=== PATIENT | male | born 1960 | race Caucasian/White ===

== ENCOUNTER 2017-03-13 13:28 | Inpatient (IN) | payer OTHER ==
[~2017-03-13] VITALS: Ht 185.4 cm; Wt 99.2 kg
[2017-03-13] MEDS: NICOTINE 21MG/24HR 1 EA TRANSDERMAL TD SCH (09:00)
[~2017-03-13 13:28] MED LIST: /PRAV20TA OR; BABY81CH OR; NIAS10003 OR; PLAV75TA2 OR
[2017-03-13 14:38] LABS: MEAN CORPUSCULAR HEMOGLOBIN 30.6 pg (27.0-33.0); MEAN CORPUSCULAR HGB CONC 33.2 g/dl (32.0-36.5); MEAN CORPUSCULAR VOLUME 92.2 fl (80.0-96.0); RED CELL DISTRIBUTION WIDTH 12.6 % (11.5-14.5); WHITE BLOOD COUNT 10.5 K/mm3 (4.0-10.0)
[2017-03-13] MEDS ORDERED: VENL75CA47 (14:54)
[2017-03-13] MEDS ORDERED: PRAV80TA2 PO (14:54)
[2017-03-13] MEDS ORDERED: EZET10TA PO (14:54)
[2017-03-13] MEDS ORDERED: LISI10TA4 PO (14:54)
[2017-03-13] MEDS ORDERED: METF500T PO (14:54)
[2017-03-13] MEDS ORDERED: VITA50003 (14:54)
[2017-03-13 15:06] LABS: ALBUMIN 3.9 GM/DL (3.2-5.2); ALBUMIN/GLOBULIN RATIO 1.05 (1.00-1.93); ALKALINE PHOSPHATASE 67 U/L (45-117); ALT/SGPT 22 U/L (12-78); ANION GAP 4 MEQ/L (8-16); AST/SGOT 16 U/L (15-37); BILIRUBIN,DIRECT 0.1 MG/DL (0.0-0.2); BILIRUBIN,TOTAL 0.4 MG/DL (0.2-1.0); BLOOD UREA NITROGEN 23 MG/DL (7-18); CALCIUM LEVEL 9.6 MG/DL (8.5-10.1); CARBON DIOXIDE LEVEL 30 MEQ/L (21-32); CHLORIDE LEVEL 107 MEQ/L (98-107); CREATININE FOR GFR 1.24 MG/DL (0.70-1.30); GLOMERULAR FILTRATION RATE > 60.0 (>56); GLUCOSE, FASTING 91 MG/DL (70-105); POTASSIUM SERUM 4.1 MEQ/L (3.5-5.1); SODIUM LEVEL 141 MEQ/L (136-145); TOTAL PROTEIN 7.6 GM/DL (6.4-8.2)
[2017-03-13 17:11] LABS: METHADONE URINE NEGATIVE (NEGATIVE)
[2017-03-13] MEDS: EZETIMIBE 10 MG TAB (ZETIA) PO SCH (18:00)
[2017-03-13] MEDS ORDERED: VENL37TA PO (18:56)
[2017-03-13] MEDS ORDERED: RIZA10TA2 PO (20:40)
[2017-03-13] MEDS ORDERED: ASPI81TA7 PO (21:43)
[2017-03-13] MEDS ORDERED: VENL75CA PO (21:43)
[2017-03-13 21:54] VITALS: BP 136/99
[2017-03-13] MEDS ORDERED: MOM 30ML SUSPENSION UDC PO PRN (23:15)
[2017-03-13] MEDS ORDERED: MAALOX 30 ML SUSP *UDC PO PRN (23:15)
[2017-03-13] MEDS ORDERED: ACETAMINOPHEN TAB 650MG DOSE (2X325MG) PO PRN (23:15)
[2017-03-13] MEDS: ASPIRIN 81 MG ENTERIC TAB PO SCH (23:22)
[2017-03-13] MEDS: LISINOPRIL 10 MG TAB PO SCH (23:22)
[2017-03-13] MEDS: metFORMIN (GLUCOPHAGE) 500 MG TAB PO SCH (23:22)
[2017-03-13] MEDS: VENLAFAXINE **XR** 75MG CAPSULE PO SCH (23:22)
[2017-03-13] MEDS: traZODone 50 MG TAB PO PRN (23:23)
[2017-03-14 06:29] VITALS: BP 131/74
[2017-03-14] MEDS: NICOTINE 21MG/24HR 1 EA TRANSDERMAL TD SCH (08:25)
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
[2017-03-14 12:00] VITALS: BP 133/58
--- NOTE | 2017-03-14 12:29 | HPEPDOC ---
Medical History and Physical Date of Admission Mar 13, 2017 at 20:43 History and Physical PCP: Dr Herrera Chief Operator Hydroformer. Dr Mckeon. ATTENDING: Dr. Leonidas Quach HPI: 56 yo M admitted to [facility] for adjustment disorder, being medically examined today. No acute medical complaints today. Denies any fevers, chills, weakness, fatigue, LYNCH, CP, SOB, cough, palpitations, abdominal pain, N/V/D or changes in bowel or bladder habits. 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 He states he hadn't used in one year. Prior to that had used cocaine 3 years. Marijuana every 2 weeks. Xanax from a friend. IV Drug Use: Denies Tattoos done unprofessionally: Denies FAMHX: Mother: History of CVA Father: , suicide Siblings: One sister Alive, diabetes Children: Alive, well Unexpected deaths due to medical reasons: 1 Brother suicide, 1 brother MT. ROS: As noted in HPI, otherwise 11pt ROS of systems reviewed and unremarkable. PE: GEN: 56 yo M, appears stated age. Well-nourished, well developed. No acute distress. Alert and oriented x 3. Pleasant, interactive. HEENT: Normocephalic, atraumatic. Pupils are equal, round, and reactive to light. Extraocular movements are intact. No nystagmus appreciated. Sclera are nonicteric. Conjunctiva without injection. Nose midline. Nasal turbinates without bogginess. EACs both patent BL. TMs both visualized and chong with good cone of light, no bulging or erythema. No facial asymmetry. Moist mucous membranes. Dentition fair. Pharynx pink and moist, no cobblestoning. Neck supple , trachea midline. No lymphadenopathy or thyromegaly appreciated. CHEST: Regular rate and rhythm, +S1, +S2 LUNGS: Clear to auscultation bilaterally. No wheezes, rales, or rhonchi. Breathing appears symmetric and easy. Patient is speaking in full sentences. No accessory muscle use. ABD: Round, soft, non-tender, non-distended. +Bowel sounds throughout. No rebound or guarding. No costovertebral angle tenderness. EXT: Pulses 2+ bilaterally dorsalis pedis and radial. No lower extremity edema appreciated. SKIN: [place], dry, warm. Capillary refill <2sec. No rashes. NEURO: Alert and oriented x 3. Cranial nerves III-XII are intact. No focal deficits appreciated. EKG: Pending. A&P: 56 yo M admitted to [facility] for adjustment disorder 1. Psych. Plan per Psychiatry. Obtain baseline EKG to assure the safety of psychiatric medications as they can prolong the QT interval. 2. Nicotine dependence. Patch available. 3. CAD/stent x 2. Follows as outpatient with Dr. Mckeon. Patient denies any chest heaviness, tightness, pressure. Continue aspirin 81 mg daily. Lisinopril 10 mg daily. Pravachol 80 mg daily. 4. Follow up with PCP on discharge. 5. Substance use. Per psychiatry. 6. Dyslipidemia. Continue Pravachol 80 mg daily and Zetia 10 mg daily. 7. NIDDM. Consistent carbohydrate diet. Continue metformin 500 mg daily. Fingerstick blood sugar twice a day. 8. History of Vitamin D deficiency. Update vitamin D level 9. History of migraine headache. Continue Tylenol as needed. 10. Staff never present throughout exam, senior safety support manager Ed. Vital Signs Vital Signs Date Time Temp Pulse Resp B/P (MAP) Pulse Ox O2 Delivery O2 Flow Rate FiO2 03/14/17 06:29 99.7 56 18 131/74 (93) 03/13/17 21:54 Room Air 03/13/17 21:36 95 Laboratory Data Labs 24H Laboratory Tests 2 03/13/17 14:11: Anion Gap 4L, Glomerular Filtration Rate > 60.0, Calcium Level 9.6, Aspartate Amino Transf (AST/SGOT) 16, Alanine Aminotransferase (ALT/SGPT) 22, Alkaline Phosphatase 67, Total Bilirubin 0.4, Direct Bilirubin 0.1, Total Protein 7.6, Albumin 3.9, Albumin/Globulin Ratio 1.05, Thyroid Stimulating Hormone (TSH) 2.380, Salicylates Level 3.1L, Urine Amphetamines Screen NEGATIVE, Urine Benzodiazepines Screen POSITIVEH, Urine Opiates Screen NEGATIVE, Urine Methadone Screen NEGATIVE, Acetaminophen Level < 2.0L, Urine Barbiturates Screen NEGATIVE, Urine Phencyclidine Screen NEGATIVE, Urine Cocaine Metabolite Screen POSITIVEH, Urine Cannabinoids Screen POSITIVEH, Ethyl Alcohol Level < 0.003 CBC/BMP Laboratory Tests 03/13/17 14:11 Red Blood Count 5.03, Mean Corpuscular Volume 92.2, Mean Corpuscular Hemoglobin 30.6, Mean Corpuscular Hemoglobin Concent 33.2, Red Cell Distribution Width 12.6 Home Medications Scheduled Aspirin (Aspirin) 81 Mg Tab, 81 MG PO QPM Ezetimibe (Ezetimibe) 10 Mg Tab, 10 MG PO QPM Lisinopril (Lisinopril) 10 Mg Tab, 10 MG PO QPM Metformin Hydrochloride (Metformin HCl) 500 Mg Tab, 500 MG PO QPM Pravastatin Sodium (Pravastatin Sodium) 80 Mg Tab, 80 MG PO QPM Venlafaxine HCl (Venlafaxine HCl ER) 75 Mg Cap, 75 MG PO QPM Allergies Coded Allergies: No Known Drug Allergy (Verified Allergy, Unknown, 02/22/13) Lina Guerrero Mar 14, 2017 12:29
[2017-03-14] MEDS: LISINOPRIL 10 MG TAB PO SCH (17:08)
[2017-03-14] MEDS: EZETIMIBE 10 MG TAB (ZETIA) PO SCH (17:08)
[2017-03-14] MEDS: ASPIRIN 81 MG ENTERIC TAB PO SCH (17:08)
[2017-03-14] MEDS: VENLAFAXINE **XR** 75MG CAPSULE PO SCH (17:08)
[2017-03-14] MEDS: metFORMIN (GLUCOPHAGE) 500 MG TAB PO SCH (17:08)
[2017-03-14 18:00] VITALS: BP 132/74
[2017-03-14] MEDS: PRAVASTATIN 20 MG TAB PO SCH (20:48)
[2017-03-15 06:24] VITALS: BP 145/80
[2017-03-15 06:33] LABS: MEAN CORPUSCULAR HEMOGLOBIN 29.7 pg (27.0-33.0); MEAN CORPUSCULAR HGB CONC 33.1 g/dl (32.0-36.5); MEAN CORPUSCULAR VOLUME 89.8 fl (80.0-96.0); RED CELL DISTRIBUTION WIDTH 12.6 % (11.5-14.5); WHITE BLOOD COUNT 6.4 K/mm3 (4.0-10.0)
[2017-03-15 06:52] LABS: ANION GAP 5 MEQ/L (8-16); BLOOD UREA NITROGEN 20 MG/DL (7-18); CALCIUM LEVEL 9.1 MG/DL (8.5-10.1); CARBON DIOXIDE LEVEL 28 MEQ/L (21-32); CHLORIDE LEVEL 108 MEQ/L (98-107); CREATININE FOR GFR 0.98 MG/DL (0.70-1.30); GLOMERULAR FILTRATION RATE > 60.0 (>56); GLUCOSE, FASTING 117 MG/DL (70-105); POTASSIUM SERUM 4.2 MEQ/L (3.5-5.1); SODIUM LEVEL 141 MEQ/L (136-145)
[2017-03-15] MEDS: NICOTINE 21MG/24HR 1 EA TRANSDERMAL TD SCH (10:24)
--- NOTE | 2017-03-15 10:36 | IPN ---
DATE OF VISIT: 03/15/2017 Mr. Xavier met with me and staff. He is focused on being discharged. He states he was willing to do outpatient drug treatment at [facility]. He continues to minimize the seriousness of what he has done and is concerned about his finances. His use of three" eight balls" of cocaine is quite an extensive amount and he followed that up with numerous Xanax. His speech is normal. Thought process intact. He has no loose associations. No abnormal or psychotic thoughts. Judgment poor, insight poor. He is fully oriented. Recent and remote memory intact. Full attention and concentration. No disturbance of language. Full fund of knowledge. Mood is good, affect is bright. DIAGNOSES: 1. Cocaine dependence. 2. Encephalopathy secondary to cocaine use. 3. Depression.
--- NOTE | 2017-03-15 16:02 | ECGEPIP ---
Stationary ECG Study [facility] Test Date: 2017-03-14 Pat Name: GILDA HAGAN Department: Room: [place] [address] Gender: M Ticket Puller: JESSICA : 1960 Requested By: Lina Guerrero Order Number: [id number] Reading MD: Asaf Ferris Measurements Intervals [place] Rate: 55 P: 60 GA: 180 QRS: 31 QRSD: 94 T: 52 QT: 417 QTc: 402 Interpretive Statements Sinus bradycardia Incomplete right bundle branch block No significant change when compared to prior tracing of 09/23/2013 Electronically Signed On 03-15-2017 16:02:12 EDT by Asaf Ferris
[2017-03-15] MEDS: LISINOPRIL 10 MG TAB PO SCH (17:14)
[2017-03-15] MEDS: EZETIMIBE 10 MG TAB (ZETIA) PO SCH (17:14)
[2017-03-15] MEDS: metFORMIN (GLUCOPHAGE) 500 MG TAB PO SCH (17:15)
[2017-03-15] MEDS: VENLAFAXINE **XR** 75MG CAPSULE PO SCH (17:15)
[2017-03-15] MEDS: ASPIRIN 81 MG ENTERIC TAB PO SCH (17:15)
[2017-03-15 18:00] VITALS: BP 135/75
[2017-03-15] MEDS: PRAVASTATIN 20 MG TAB PO SCH (22:29)
[2017-03-16 06:48] VITALS: BP 129/76
--- NOTE | 2017-03-16 07:06 | IPN ---
DATE: 03/16/2017 Mr. Xavier met with me today. He is focused on discharge and getting into rehabilitation. He states he should have been in rehabilitation after he stopped cocaine a year ago. He is not minimizing the seriousness of what he does. He is concerned about his finances. He is meeting with staff to arrange drug rehabilitation treatment. MENTAL STATUS EXAMINATION: His speech is normal. Thought process intact. He has no loose associations. No abnormal or psychotic thoughts. Judgment is poor. Insight is poor. He is fully oriented. Recent and remote memory intact. Full attention and concentration. No disturbance of language. Full fund of knowledge. Mood is good. Affect is bright. DIAGNOSES: 1. Encephalopathy secondary to cocaine use. 2. Depression. 3. Cocaine dependence.
[2017-03-16] MEDS: NICOTINE 21MG/24HR 1 EA TRANSDERMAL TD SCH (08:50)
[2017-03-16] MEDS: ASPIRIN 81 MG ENTERIC TAB PO SCH (17:22)
[2017-03-16] MEDS: LISINOPRIL 10 MG TAB PO SCH (17:22)
[2017-03-16] MEDS: metFORMIN (GLUCOPHAGE) 500 MG TAB PO SCH (17:22)
[2017-03-16] MEDS: VENLAFAXINE **XR** 75MG CAPSULE PO SCH (17:22)
[2017-03-16] MEDS: EZETIMIBE 10 MG TAB (ZETIA) PO SCH (17:23)
[2017-03-16 18:00] VITALS: BP 132/72
[2017-03-16] MEDS: PRAVASTATIN 20 MG TAB PO SCH (20:39)
[2017-03-16] MEDS: traZODone 50 MG TAB PO PRN (20:39)
[2017-03-17 06:50] VITALS: BP 117/63
[2017-03-17] MEDS: NICOTINE 21MG/24HR 1 EA TRANSDERMAL TD SCH (09:01)
[2017-03-17] MEDS: VENLAFAXINE **XR** 75MG CAPSULE PO SCH (17:15)
[2017-03-17] MEDS: EZETIMIBE 10 MG TAB (ZETIA) PO SCH (17:15)
[2017-03-17] MEDS: ASPIRIN 81 MG ENTERIC TAB PO SCH (17:15)
[2017-03-17] MEDS: LISINOPRIL 10 MG TAB PO SCH (17:16)
[2017-03-17] MEDS: metFORMIN (GLUCOPHAGE) 500 MG TAB PO SCH (17:16)
[2017-03-17 18:00] VITALS: BP 117/69
[2017-03-17] MEDS: PRAVASTATIN 20 MG TAB PO SCH (22:00)
[2017-03-17] MEDS: traZODone 50 MG TAB PO PRN (22:00)
[2017-03-18 06:59] VITALS: BP 133/73
[2017-03-18] MEDS: NICOTINE 21MG/24HR 1 EA TRANSDERMAL TD SCH (08:51)
--- NOTE | 2017-03-18 09:36 | IPN ---
DATE: 03/17/2017 Felipe Xavier is in good spirits. He denies hallucinations, delusions, obsessions, compulsions and phobias. His speech is normal. His thought process is intact. No loose associations. No abnormal or psychotic thoughts. Judgment and insight are good. He is fully oriented. Recent and remote memory intact. Attention and concentration are full. No disturbance of language. He has a full fund of knowledge. Mood is good. Affect is bright. Plan for patient to be going to substance abuse rehabilitation as planned. DIAGNOSIS: Substance dependence.
[2017-03-18] MEDS: VENLAFAXINE **XR** 75MG CAPSULE PO SCH (17:19)
[2017-03-18] MEDS: ASPIRIN 81 MG ENTERIC TAB PO SCH (17:19)
[2017-03-18 17:20] VITALS: BP 133/73
[2017-03-18] MEDS: EZETIMIBE 10 MG TAB (ZETIA) PO SCH (17:20)
[2017-03-18] MEDS: LISINOPRIL 10 MG TAB PO SCH (17:20)
[2017-03-18] MEDS: metFORMIN (GLUCOPHAGE) 500 MG TAB PO SCH (17:20)
[2017-03-18 18:00] VITALS: BP 125/71
[2017-03-18] MEDS: PRAVASTATIN 20 MG TAB PO SCH (21:20)
[2017-03-18] MEDS: traZODone 50 MG TAB PO PRN (22:28)
[2017-03-19 06:30] VITALS: BP 144/87
[2017-03-19] MEDS: NICOTINE 21MG/24HR 1 EA TRANSDERMAL TD SCH (08:10)
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
== END 2017-03-19 14:05 | disposition home or self-care (01) | DRG 774 ==
LOC: M ED 15:04 → M ED INP 20:43 → M PSY 21:42
PROVIDERS: ADMIT Psychiatry & Neurology Psychiatry; ATTEND Psychiatry & Neurology Child & Adolescent Psychiatry
DX: F19.94 Other psychoactive substance use, unspecified with psychoactive substance-induced mood disorder (principal); F14.10 Cocaine abuse, uncomplicated; I10 Essential (primary) hypertension; F32.9 Major depressive disorder, single episode, unspecified; I25.10 Atherosclerotic heart disease of native coronary artery without angina pectoris; E11.9 Type 2 diabetes mellitus without complications; E78.5 Hyperlipidemia, unspecified; F41.9 Anxiety disorder, unspecified; F17.200 Nicotine dependence, unspecified, uncomplicated

== ENCOUNTER → 2017-05-14 | Outpatient (CLI) | payer OTHER ==
[~2017-05-14] MED LIST changes: +ASPI81TA7 PO; +EZET10TA PO; +LISI10TA4 PO; +METF500T PO; +PRAV80TA2 PO; +RIZA10TA2 PO; +VENL37TA PO; +VENL75CA PO; +VENL75CA47; +VITA50003
[2017-05-14 11:49] LABS: MEAN CORPUSCULAR HEMOGLOBIN 31.2 pg (27.0-33.0); MEAN CORPUSCULAR HGB CONC 33.4 g/dl (32.0-36.5); MEAN CORPUSCULAR VOLUME 93.6 fl (80.0-96.0); RED CELL DISTRIBUTION WIDTH 12.7 % (11.5-14.5); WHITE BLOOD COUNT 6.5 K/mm3 (4.0-10.0)
[2017-05-14 12:44] LABS: ALBUMIN 3.5 GM/DL (3.2-5.2); ALBUMIN/GLOBULIN RATIO 1.06 (1.00-1.93); ALKALINE PHOSPHATASE 61 U/L (45-117); ALT/SGPT 21 U/L (12-78); ANION GAP 4 MEQ/L (8-16); AST/SGOT 14 U/L (15-37); BILIRUBIN,TOTAL 0.2 MG/DL (0.2-1.0); BLOOD UREA NITROGEN 24 MG/DL (7-18); CALCIUM LEVEL 8.6 MG/DL (8.5-10.1); CARBON DIOXIDE LEVEL 28 MEQ/L (21-32); CHLORIDE LEVEL 110 MEQ/L (98-107); CHOLESTEROL LEVEL 142 MG/DL (<200); CREATININE FOR GFR 1.11 MG/DL (0.70-1.30); GLOMERULAR FILTRATION RATE > 60.0 (>56); GLUCOSE, FASTING 119 MG/DL (70-105); POTASSIUM SERUM 4.5 MEQ/L (3.5-5.1); SODIUM LEVEL 142 MEQ/L (136-145); THYROXINE (T4) 7.8 UG/DL (4.5-12.0); TOTAL PROTEIN 6.8 GM/DL (6.4-8.2); TRIGLYCERIDES LEVEL 48 MG/DL (<150)
== END ==
LOC: M LRY 08:46
PROVIDERS: ATTEND Family Medicine
DX: E11.9 Type 2 diabetes mellitus without complications (principal); E78.5 Hyperlipidemia, unspecified; R49.0 Dysphonia

== ENCOUNTER 2020-03-04 07:17 | Day surgery (SDC) | payer OTHER ==
[~2020-03-04] VITALS: Ht 185.4 cm; Wt 95.0 kg
[2020-03-04] VITALS (8 sets, daily range): BP systolic 134–167; BP diastolic 75–89
[~2020-03-04 07:17] MED LIST changes: -/PRAV20TA OR; +ASPI1TAB15 PO; -ASPI81TA7 PO; -EZET10TA PO; +EZET10TA21 PO; -METF500T PO; +METF500T13 PO; +PRAV1TAB39 OR; -VENL75CA PO; +VENL75CA2 PO; -VITA50003; +VITA50005
[2020-03-04] MEDS ORDERED: ISOVUE-370 76% 100ML VIAL (Q9967) As Ordered ONE (07:26)
[2020-03-04] MEDS ORDERED: BOOSTRIX/ADACEL VACCINE (DIPHTH/PERTUSS/ACELL/TETANUS) 0.5ML SYR IM ONE (07:30)
[2020-03-04] MEDS ORDERED: NS 1,000 ML IV ONE (07:30)
[2020-03-04] MEDS ORDERED: LIDOCAINE 2% 5ML JELLY UROJET TOP ONE (07:30)
[2020-03-04 07:36] LABS: BASO # 0.1 10^3/uL (0.0-0.2); BASO % 0.5 % (0.0-1.0); EOS % 0.1 % (0.0-3.0); HEMATOCRIT 40.6 % (42.0-52.0); HEMOGLOBIN 13.2 g/dl (13.5-17.5); LYMPH # 1.3 10^3/uL (1.5-5.0); LYMPH % 12.3 % (24.0-44.0); MEAN CORPUSCULAR HEMOGLOBIN 29.2 pg (27.0-33.0); MEAN CORPUSCULAR HGB CONC 32.5 g/dl (32.0-36.5); MEAN CORPUSCULAR VOLUME 89.8 fl (80.0-96.0); MONO # 0.6 10^3/uL (0.0-0.8); NEUTROPHILS # 8.5 10^3/uL (1.5-8.5); NEUTROPHILS % 80.8 % (36.0-66.0); PLATELET COUNT, AUTOMATED 288 10^3/uL (150-450); RED BLOOD COUNT 4.52 10^6/uL (4.30-6.10); WHITE BLOOD COUNT 10.5 10^3/uL (4.0-10.0)
[2020-03-04 07:46] LABS: INR 1.08; PROTHROMBIN TIME 13.7 SECONDS (11.8-14.0)
[2020-03-04 07:47] LABS: PARTIAL THROMBOPLASTIN TIME 34.4 SECONDS (25.0-38.4)
[2020-03-04 07:54] LABS: ABG BASE EXCESS 0.6 (-2.0-2.0); ABG HCO3 24.8 MEQ/L (22.0-26.0); ABG O2 SATURATION 96.8 % (95.0-99.0); ABG PARTIAL PRESSURE CO2 38.4 mmHg (35.0-45.0); ABG PARTIAL PRESSURE O2 84.2 mmHg (75.0-100.0); ABG pH (ARTERIAL) 7.428 UNITS (7.350-7.450)
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
[2020-03-04] MEDS ORDERED: METF-877 PO (08:10)
[2020-03-04] MEDS ORDERED: ATOR80TA59 PO (08:10)
[2020-03-04] MEDS ORDERED: VITA50005 PO (08:10)
[2020-03-04] MEDS ORDERED: TRUL10IN SQ (08:10)
[2020-03-04 08:14] LABS: ALT/SGPT 20 U/L (12-78)
[2020-03-04 08:15] LABS: ALBUMIN 3.7 GM/DL (3.2-5.2); AMYLASE 33 U/L (25-115); BILIRUBIN,DIRECT 0.2 MG/DL (0.0-0.2); BILIRUBIN,TOTAL 0.5 MG/DL (0.2-1.0); CK-MB VALUE MASS 2.9 NG/ML (<3.6); CPK CREATINE PHOSPHOKINASE 281 U/L (39-308); ETHYL ALCOHOL (ETHANOL) < 0.003 % (0.000-0.010); LIPASE 124 U/L (73-393); MB/CK RELATIVE INDEX 1.03 (< OR =4); TOTAL PROTEIN 7.7 GM/DL (6.4-8.2); TROPONIN I < 0.02 NG/ML (< 0.10)
[2020-03-04] MEDS ORDERED: NS 1,000 ML IV SCH ×2 (08:23→10:15)
[2020-03-04] MEDS ORDERED: BUPIVACAINE HCL 0.25% 30ML VIAL As Ordered ONE (08:25)
[2020-03-04] MEDS ORDERED: cefoTEtan INJ 2GM VIAL (S0074 PER 500MG) As Ordered ONE (08:59)
[2020-03-04] MEDS ORDERED: MIDAZOLAM INJ 2MG/2ML VIAL (J2250 PER 1MG) As Ordered ONE (09:09)
[2020-03-04] MEDS ORDERED: fentaNYL 250 MCG/5 ML INJECTION (J3010) As Ordered ONE (09:09)
[2020-03-04] MEDS ORDERED: ROCURONIUM BROMIDE 50 MG/5 ML VIAL As Ordered ONE (09:09)
[2020-03-04] MEDS ORDERED: dexameTHASONE 4 MG/ML 1ML VIAL (J1100 PER 1MG) As Ordered ONE (09:09)
[2020-03-04] MEDS ORDERED: ONDANSETRON 4MG/2ML VIAL (J2405 PER 1MG) As Ordered ONE (09:09)
[2020-03-04] MEDS ORDERED: propofoL 200 MG/20 ML VIAL As Ordered ONE (09:09)
[2020-03-04] MEDS ORDERED: LIDOCAINE 2% 100MG/5ML SDV (FOR ANES.) As Ordered ONE (09:09)
[2020-03-04] MEDS ORDERED: ALBUTEROL 6.7GM INHALER **FOR ANES. CART/OMNICELL ONLY As Ordered ONE (09:10)
[2020-03-04] MEDS ORDERED: SUGAMMADEX SODIUM 500 MG/5 ML VIAL (BRIDION) As Ordered ONE (09:24)
[2020-03-04] MEDS ORDERED: hydrALAZINE 20MG/ML 1ML VIAL (J0360 PER 20MG) As Ordered ONE (09:29)
[2020-03-04] MEDS ORDERED: fentaNYL 100 MCG/2 ML INJECTION (J3010) IV PRN (10:15)
[2020-03-04] MEDS ORDERED: oxyCODONE 5MG TAB PO PRN (10:15)
[2020-03-04] MEDS ORDERED: LR 1,000 ML IV SCH (10:15)
[2020-03-04] MEDS ORDERED: ACETAMINOPHEN TAB 650MG DOSE (2X325MG) PO PRN (10:15)
[2020-03-04] MEDS ORDERED: NORCO, ANEXSIA 5/325MG TABLET (HYDROcodone/ACETAMINOPHEN) PO PRN (10:15)
[2020-03-04] MEDS ORDERED: ONDANSETRON 4MG/2ML VIAL (J2405 PER 1MG) IV PRN (10:15)
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
--- NOTE | 2020-03-04 20:39 | ECGEPIP ---
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
[2020-03-04] MEDS ORDERED: VENLAFAXINE **XR** 75MG CAPSULE PO SCH (21:00)
[2020-03-04] MEDS ORDERED: cefoTEtan DISODIUM 1 GM in D5W MINI-BAG PLUS 50 ML IV ONE (21:00)
[2020-03-04] MEDS ORDERED: ATORVASTATIN 20 MG TAB PO SCH (21:00)
[2020-03-04] MEDS ORDERED: lisinopriL 10 MG TAB PO SCH (21:00)
[2020-03-05 02:09] VITALS: BP 126/78
[2020-03-05 06:00] VITALS: BP 165/75
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
== END 2020-03-05 14:15 | disposition other institution (70) ==
LOC: M ED 07:17 → M SDC 08:33 → M MS5PR 11:15 → M SDC 03-05 14:15
PROVIDERS: ATTEND Surgery
DX: S31.642A Puncture wound with foreign body of abdominal wall, epigastric region with penetration into peritoneal cavity, initial encounter (principal); S36.112A Contusion of liver, initial encounter; T14.91XA Suicide attempt, initial encounter; W29.4XXA Contact with nail gun, initial encounter; Y92.89 Other specified places as the place of occurrence of the external cause; Y93.9 Activity, unspecified; Y99.9 Unspecified external cause status; F14.10 Cocaine abuse, uncomplicated; F17.218 Nicotine dependence, cigarettes, with other nicotine-induced disorders; E78.5 Hyperlipidemia, unspecified; E11.9 Type 2 diabetes mellitus without complications; Z79.82 Long term (current) use of aspirin; Z79.84 Long term (current) use of oral hypoglycemic drugs; Z79.899 Other long term (current) drug therapy; Z18.11 Retained magnetic metal fragments
CPT/HCPCS: 36600; 49329; 51702; 80047; 80076; 82150; 82550; 82553; 82803; 83605; 83690; 84484; 85025; 85610; 85730; 86850; 86900; 86901; 88300; 90471; 90715; 93005; 93041; 96365; 99285; G0480; J0360; J1100; J2250; J2405; J3010; Q9967

== ENCOUNTER 2020-03-05 10:56 | Inpatient (IN) | payer MEDICAID, OTHER ==
[~2020-03-05] VITALS: Ht 185.4 cm; Wt 95.3 kg
[~2020-03-05 10:56] MED LIST changes: +ATOR80TA59 PO; +METF-877 PO; +TRUL10IN SQ; +VITA50005 PO
[2020-03-05] MEDS ORDERED: MAALOX 30 ML SUSP *UDC PO PRN (13:30)
[2020-03-05] MEDS ORDERED: MOM 30ML SUSPENSION UDC PO PRN (13:30)
[2020-03-05] MEDS ORDERED: ACETAMINOPHEN TAB 650MG DOSE (2X325MG) PO PRN (13:30)
[2020-03-05 15:37] VITALS: BP 116/60
[2020-03-05] MEDS: VENLAFAXINE 37.5 MG TAB PO SCH (20:33)
[2020-03-06 06:23] VITALS: BP 144/88
--- NOTE | 2020-03-06 14:21 | HPEPDOC ---
General Date of Admission Mar 05, 2020 at 14:20 Date of Service: Mar 06, 2020 Chief Complaint The patient is a 59-year-old male admitted with a reason for visit of Unspecified Depression Disorder. Source: Patient Exam Limitations: No limitations Timing/Duration: 24 hours Severity: Mild History of Present Illness Patient's 59 years old male with past medical history of depression, hyperlipidemia, diabetes type 2 presented to the hospital with major depressive episode. Patient denied fever, chills, nausea, vomiting, diarrhea or dysuria. Patient stated that he didn't see primary care physician for long period of time. Home Medications Scheduled Aspirin (Aspirin EC) 81 Mg Tab, 81 MG PO QPM, (Reported) Atorvastatin Calcium (Atorvastatin Calcium) 80 Mg Tablet, 80 MG PO QPM, (Reported) Dulaglutide (Trulicity) 0.75 Mg/0.5 Ml Pen.injctr, 0.75 ML SQ QWEEK, (Reported) Ergocalciferol (Vitamin D2) (Vitamin D2) 50,000 Units Cap, 50,000 UNITS PO Q2WK, (Reported) Lisinopril (Lisinopril) 10 Mg Tab, 10 MG PO QPM, (Reported) Venlafaxine HCl (Venlafaxine HCl ER) 75 Mg Cap, 75 MG PO QPM, (Reported) Allergies Coded Allergies: No Known Allergies (Unverified , 03/04/20) Past Medical History Medical History Hyperlipidemia, diabetes type 2, depression Family History Mother had diabetes Social History * Smoker: Denies Alcohol: occationally Drugs: cocaine A-FIB/CHADSVASC A-FIB History Current/History of A-Fib/PAF?: No Current PO Anticoag Therapy: No Review of Systems Constitutional: Denies: Chills, Fever Eyes: Denies: Pain, Vision change ENT: Denies: Head Aches Skin: Denies: Rash Pulmonary: Denies: Dyspnea, Cough Cardiovascular: Denies: Chest Pain, Palpitations Gastrointestinal: Denies: Nausea, Vomiting Genitourinary: Denies: Dysuria Hematologic: Denies: Bruising, Bleeding Excessively Endocrine: Denies: Polydipsia Musculoskeletal: Denies: Neck Pain, Back Pain Neurological: Denies: Weakness Psych: Reports: Depression Physical Examination General Exam: Positive: Alert, Cooperative Eye Exam: Positive: PERRLA ENT Exam: Positive: Atraumatic Neck Exam: Positive: Supple; Negative: JVD Chest Exam: Positive: Clear to auscultation Heart Exam: Positive: Rate Normal Telemetry: Positive: No significant arrhythmia Abdomen Exam: Positive: Normal bowel sounds Extremity Exam: Positive: Clubbing, Cyanosis Skin Exam: Positive: Nl turgor and temperature Neuro Exam: Positive: Normal Gait, Strength at 5/5 X4 ext Psych Exam: Positive: Mental status NL Vital Signs Vital Signs Date Time Temp Pulse Resp B/P (MAP) Pulse Ox O2 Delivery O2 Flow Rate FiO2 03/06/20 10:04 Room Air 03/06/20 06:23 98.1 52 16 144/88 (234) 51 Assessment/Plan Patient's 59 years old male with past medical history of depression, hyperlipidemia, diabetes type 2 presented to the hospital with major depressive episode. Patient denied fever, chills, nausea, vomiting, diarrhea or dysuria. Patient stated that he didn't see primary care physician for long period of time. Problems (1) Type 2 diabetes mellitus Problem Text: HbA1c is 6.5 which indicates type 2 diabetes Patient will benefit from diet and physical exercise (2) Depression Status: Chronic Problem Text: Defer to psychiatrist for management of his chronic medications. (3) Hypertension Status: Chronic Problem Text: Continue home medications (4) Hyperlipidemia Status: Chronic Problem Text: Continue atorvastatin Plan / VTE VTE Prophylaxis Ordered?: No VTE Exclusion Mechanical Proph: Low Risk for VTE BIANKA HEART DO Mar 06, 2020 14:21
[2020-03-06] MEDS: ASPIRIN 81 MG CHEW TABLET PO SCH (15:00)
[2020-03-06 16:13] VITALS: BP 146/82
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
[2020-03-06] MEDS: ATORVASTATIN 20 MG TAB PO SCH (20:27)
[2020-03-06] MEDS: lisinopriL 10 MG TAB PO SCH (20:27)
[2020-03-06] MEDS: traZODone 50 MG TAB PO PRN (20:27)
[2020-03-06] MEDS: VENLAFAXINE 37.5 MG TAB PO SCH (20:27)
[2020-03-07 06:45] VITALS: BP 144/71
[2020-03-07] MEDS: ASPIRIN 81 MG CHEW TABLET PO SCH (08:23)
[2020-03-07 16:06] VITALS: BP 127/71
[2020-03-07 20:29] VITALS: BP 127/71
[2020-03-07] MEDS: lisinopriL 10 MG TAB PO SCH (20:29)
[2020-03-07] MEDS: VENLAFAXINE 37.5 MG TAB PO SCH (20:29)
[2020-03-07] MEDS: ATORVASTATIN 20 MG TAB PO SCH (20:29)
[2020-03-07] MEDS: traZODone 50 MG TAB PO PRN (20:29)
--- NOTE | 2020-03-08 06:16 | MHIPN ---
DATE: 03/07/2020 The patient, today, states that he slept good. He says that he is not having any thoughts of hurting himself. He also says that his mood is much better. He and his have talked about the fact that they both need to stop drugs. He had already told me, though, that the had stopped using drugs but he had continued to use it. MENTAL STATUS EXAMINATION: This patient is alert and oriented times three. Eye contact is good. Verbally spontaneous. There is no formal thought disorder noted. Mood is "better." Affect is full range and appropriate. He is not psychotic. He is denying being suicidal or homicidal. Concentration good. Memory intact. Insight and judgment fair. DIAGNOSES: 1. Unspecified depressive disorder. 2. Cocaine use disorder, severe. 3. Benzodiazepine use disorder. 4. Alcohol use disorder. TREATMENT PLAN: At this point, we will continue to monitor the patient for continued resolution of suicidal ideation and continued stabilization of his mood. The plan will be to discharge him with appropriate followup when stable.
[2020-03-08 06:38] VITALS: BP 176/70
[2020-03-08] MEDS: ASPIRIN 81 MG CHEW TABLET PO SCH (08:41)
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
== END 2020-03-08 13:35 | disposition home or self-care (01) | DRG 754 ==
LOC: M PSY 14:20
PROVIDERS: ADMIT Psychiatry & Neurology Addiction Medicine; ATTEND Psychiatry & Neurology Addiction Medicine
DX: F32.9 Major depressive disorder, single episode, unspecified (principal); E11.9 Type 2 diabetes mellitus without complications; I10 Essential (primary) hypertension; F14.90 Cocaine use, unspecified, uncomplicated; F10.10 Alcohol abuse, uncomplicated; F15.90 Other stimulant use, unspecified, uncomplicated; F17.200 Nicotine dependence, unspecified, uncomplicated; Z79.82 Long term (current) use of aspirin; Z79.899 Other long term (current) drug therapy; E78.5 Hyperlipidemia, unspecified

== ENCOUNTER 2020-08-10 07:45 | Emergency (ER) | payer MEDICAID, OTHER ==
[~2020-08-10] VITALS: Ht 185.4 cm; Wt 91.0 kg
[~2020-08-10 07:45] MED LIST changes: +ASPI-546 PO; -ASPI1TAB15 PO
[2020-08-10] MEDS ORDERED: NS 1,000 ML IV SCH (08:04)
[2020-08-10 08:33] LABS: BASO # 0.1 10^3/uL (0.0-0.2); BASO % 0.7 % (0.0-1.0); EOS # 0.1 10^3/uL (0.0-0.5); EOS % 1.1 % (0.0-3.0); HEMATOCRIT 43.1 % (42.0-52.0); HEMOGLOBIN 14.2 g/dl (13.5-17.5); LYMPH # 1.9 10^3/uL (1.5-5.0); LYMPH % 20.6 % (24.0-44.0); MEAN CORPUSCULAR HEMOGLOBIN 29.6 pg (27.0-33.0); MEAN CORPUSCULAR HGB CONC 32.9 g/dl (32.0-36.5); MONO # 0.5 10^3/uL (0.0-0.8); MONO % 5.7 % (0.0-5.0); NEUTROPHILS # 6.4 10^3/uL (1.5-8.5); NEUTROPHILS % 71.6 % (36.0-66.0); PLATELET COUNT, AUTOMATED 304 10^3/uL (150-450); RED BLOOD COUNT 4.79 10^6/uL (4.30-6.10)
[2020-08-10 08:48] LABS: VENOUS BASE EXCESS -1.4 (-2.0-2.0); VENOUS HCO3 22.6 MEQ/L (23.0-27.0); VENOUS O2 SATURATION 98.8 % (60.0-80.0); VENOUS PARTIAL PRESSURE CO2 35.9 mmHg (38.0-50.0); VENOUS PH 7.416 UNITS (7.330-7.430); VENOUS STANDARD HCO3 23.3 MEQ/L; VENOUS TOTAL CO2 23.7 MEQ/L (24.0-28.0)
[2020-08-10 09:06] LABS: ACETAMINOPHEN LEVEL < 2.0 UG/ML (10.0-30.0); ALBUMIN 3.9 GM/DL (3.2-5.2); ALT/SGPT 18 U/L (12-78); BILIRUBIN,DIRECT 0.1 MG/DL (0.0-0.2); BILIRUBIN,TOTAL 0.5 MG/DL (0.2-1.0); BLOOD UREA NITROGEN 13 MG/DL (7-18); CALCIUM LEVEL 9.6 MG/DL (8.8-10.2); CARBON DIOXIDE LEVEL 26 MEQ/L (21-32); CHLORIDE LEVEL 105 MEQ/L (98-107); CK-MB VALUE MASS 2.2 NG/ML (<3.6); CPK CREATINE PHOSPHOKINASE 166 U/L (39-308); CREATININE FOR GFR 0.99 MG/DL (0.70-1.30); ETHYL ALCOHOL (ETHANOL) < 0.003 % (0.000-0.010); GLOMERULAR FILTRATION RATE > 60.0 (>49); GLUCOSE, FASTING 116 MG/DL (70-100); MB/CK RELATIVE INDEX 1.33 (< OR =4); POTASSIUM SERUM 3.7 MEQ/L (3.5-5.1); SALICYLATE LEVEL 3.3 MG/DL (5.0-30.0); SODIUM LEVEL 138 MEQ/L (136-145); TOTAL PROTEIN 7.8 GM/DL (6.4-8.2); TROPONIN I < 0.02 NG/ML (< 0.10)
[2020-08-10 10:05] LABS: AMPHETAMINES LEVEL URINE NEGATIVE (NEGATIVE); BARBITURATES URINE NEGATIVE (NEGATIVE); BENZODIAZEPINES URINE NEGATIVE (NEGATIVE); CANNABINOIDS URINE POSITIVE (NEGATIVE); COCAINE METABOLITE URINE POSITIVE (NEGATIVE); METHADONE URINE NEGATIVE (NEGATIVE); OPIATES URINE NEGATIVE (NEGATIVE); PHENCYCLIDINE URINE NEGATIVE (NEGATIVE)
--- NOTE | 2020-08-10 12:53 | ECGEPIP ---
[facility] - ED Test Date: 2020-08-10 Pat Name: GILDA HAGNA Department: Room: - Gender: Male Latrine Cleaner: EILEEN : 1960 Requested By: Maureen Sims Order Number: [id number] Reading MD: Brando Russell Measurements Intervals [place] Rate: 59 P: 48 MA: 162 QRS: 11 QRSD: 114 T: 47 QT: 428 QTc: 425 Interpretive Statements SINUS BRADYCARDIA INCOMPLETE RIGHT BUNDLE BRANCH BLOCK SIMILAR TO 03/04/20 Electronically Signed on 08-10-2020 12:53:22 EDT by Brando Russell
[2020-08-10 13:30] VITALS: BP 116/70
== END 2020-08-10 14:16 | disposition home or self-care (01) ==
LOC: EDBD 07:45 → M ED 07:45
DX: F14.288 Cocaine dependence with other cocaine-induced disorder (principal); R00.1 Bradycardia, unspecified; I10 Essential (primary) hypertension; E11.9 Type 2 diabetes mellitus without complications; F32.9 Major depressive disorder, single episode, unspecified; F17.200 Nicotine dependence, unspecified, uncomplicated; Z79.82 Long term (current) use of aspirin; Z79.899 Other long term (current) drug therapy; Z95.5 Presence of coronary angioplasty implant and graft
CPT/HCPCS: 36415; 80048; 80076; 80307; 82550; 82553; 82803; 84443; 85025; 93005; 93041; 96360; 96361; 99285; G0480

== ENCOUNTER 2020-12-21 00:30 | Inpatient (IN) | payer OTHER ==
[2020-12-21] VITALS (13 sets, daily range): BP systolic 109–141; BP diastolic 58–74
[~2020-12-21] VITALS: Ht 185.4 cm; Wt 93.0 kg
--- OUTSIDE RECORDS SUMMARY | 2020-12-21 00:35 | CCD ---
Author Author [facility] Organization [facility] Address Unknown Phone Unavailable Care Team Providers Care Ballroom Dancer Name Role Phone ZURDO KILPATRICK MD Unavailable Unavailable ZURDO KILPATRICK MD Unavailable Unavailable ZURDO KILPATRICK MD Unavailable Unavailable ZURDO KILPATRICK MD Unavailable Unavailable ZURDO KILPATRICK MD Unavailable Unavailable ZURDO KILPATRICK MD Unavailable Unavailable ZURDO KILPATRICK MD Unavailable Unavailable ZURDO KILPATRICK MD Unavailable Unavailable ZURDO KILPATRICK MD Unavailable Unavailable ZURDO KILPATRICK MD Unavailable Unavailable ZURDO KILPATRICK MD Unavailable Unavailable ZURDO KILPATRICK MD Unavailable Unavailable ZURDO KILPATRICK MD Unavailable Unavailable ZURDO KILPATRICK MD Unavailable Unavailable ZURDO KILPATRICK MD Unavailable Unavailable ZURDO KILPATRICK MD Unavailable Unavailable ZURDO KILPATRICK MD Unavailable Unavailable ZURDO KILPATRICK MD Unavailable Unavailable ZURDO KILPATRICK MD Unavailable Unavailable ZURDO KILPATRICK MD Unavailable Unavailable ZURDO KILPATRICK MD Unavailable Unavailable ZURDO KILPATRICK MD Unavailable Unavailable ZURDO KILPATRICK MD Unavailable Unavailable ZURDO KILPATRICK MD Unavailable Unavailable ZURDO KILPATRICK MD Unavailable Unavailable ZURDO KILPATRICK MD Unavailable Unavailable ZURDO KILPATRICK MD Unavailable Unavailable ZURDO KILPATRICK MD Unavailable Unavailable ZURDO KILPATRICK MD Unavailable Unavailable ZURDO KILPATRICK MD Unavailable Unavailable ZURDO KILPATRICK MD Unavailable Unavailable KILPATRICK, ZURDO MD Unavailable Unavailable KILPATRICK, ZURDO MD Unavailable Unavailable KILPATRICK, ZURDO MD Unavailable Unavailable KILPATRICK, ZURDO MD Unavailable Unavailable KILPATRICK, ZURDO MD Unavailable Unavailable KILPATRICK, ZURDO MD Unavailable Unavailable KILPATRICK, ZURDO MD Unavailable Unavailable KILPATRICK, ZURDO MD Unavailable Unavailable KILPATRICK, ZURDO MD Unavailable Unavailable KILPATRICK, ZURDO MD Unavailable Unavailable KILPATRICK, ZURDO MD Unavailable Unavailable KILPATRICK, ZURDO MD Unavailable Unavailable KILPATRICK, ZURDO MD Unavailable Unavailable KILPATRICK, ZURDO MD Unavailable Unavailable KILPATRICK, ZURDO MD Unavailable Unavailable KILPATRICK, ZURDO MD Unavailable Unavailable KILPATRICK, ZURDO MD Unavailable Unavailable KILPATRICK, ZURDO MD Unavailable Unavailable KILPATRICK, ZURDO MD Unavailable Unavailable KILPATRICK, ZURDO MD Unavailable Unavailable KILPATRICK, ZURDO MD Unavailable Unavailable KILPATRICK, ZURDO MD Unavailable Unavailable KILPATRICK, ZURDO MD Unavailable Unavailable KILPATRICK, ZURDO MD Unavailable Unavailable KILPATRICK, ZURDO MD Unavailable Unavailable KILPATRICK, ZURDO MD Unavailable Unavailable KILPATRICK, ZURDO MD Unavailable Unavailable KILPATRICK, ZURDO MD Unavailable Unavailable KILPATRICK, ZURDO MD Unavailable Unavailable KILPATRICK, ZURDO MD Unavailable Unavailable KILPATRICK, ZURDO MD Unavailable Unavailable KILPATRICK, ZURDO MD Unavailable Unavailable KILPATRICK, ZURDO MD Unavailable Unavailable KILPATRICK, ZURDO MD Unavailable Unavailable KILPATRICK, ZURDO MD Unavailable Unavailable KILPATRICK, ZURDO MD Unavailable Unavailable KILPATRICK, ZURDO MD Unavailable Unavailable KILPATRICK, ZURDO MD Unavailable Unavailable ROCIO, K SHINE PA Unavailable Unavailable ROCIO, K SHINE PA Unavailable Unavailable ROCIO, K SHINE PA Unavailable Unavailable ROCIO, K SHINE PA Unavailable Unavailable ROCIO, K SHINE PA Unavailable Unavailable ROCIO, K SHINE PA Unavailable Unavailable ROCIO, K SHINE PA Unavailable Unavailable ROCIO, K SHINE PA Unavailable Unavailable ROCIO, K SHINE PA Unavailable Unavailable ROCIO, K SHINE PA Unavailable Unavailable ROCIO, K SHINE PA Unavailable Unavailable ROCIO, K SHINE PA Unavailable Unavailable ROCIO, K SHINE PA Unavailable Unavailable ROCIO, K SHINE PA Unavailable Unavailable ROCIO, K SHINE PA Unavailable Unavailable ROCIO, K SHINE PA Unavailable Unavailable ROCIO, K SHINE PA Unavailable Unavailable ROCIO, K SHINE PA Unavailable Unavailable ROCIO, K SHINE PA Unavailable Unavailable ROCIO, K SHINE PA Unavailable Unavailable Re-disclosure Warning The records that you are about to access may contain information from federally-assisted alcohol or drug abuse programs. If such information is present, then the following federally mandated warning applies: This information has been disclosed to you from records protected by federal confidentiality rules (42 CFR part 2). The federal rules prohibit you from making any further disclosure of this information unless further disclosure is expressly permitted by the written consent of the person to whom it pertains or as otherwise permitted by 42 CFR part 2. A general authorization for the release of medical or other information is NOT sufficient for this purpose. The Federal rules restrict any use of the information to criminally investigate or prosecute any alcohol or drug abuse patient.The records that you are about to access may contain highly sensitive health information, the redisclosure of which is protected by Article 27-F of the [facility] Public Health law. If you continue you may have access to information: Regarding HIV / AIDS; Provided by facilities licensed or operated by the [facility] Office of Mental Health; or Provided by the [facility] Office for People With Developmental Disabilities. If such information is present, then the following [facility] mandated warning applies: This information has been disclosed to you from confidential records which are protected by state law. State law prohibits you from making any further disclosure of this information without the specific written consent of the person to whom it pertains, or as otherwise permitted by law. Any unauthorized further disclosure in violation of state law may result in a fine or fdc sentence or both. A general authorization for the release of medical or other information is NOT sufficient authorization for further disc losure. Allergies and Adverse Reactions Type Description Substance Reaction Status Data Source(s ) No Known Allergies No Known Allergies [facility] Family History Family Member Name Family Member Gender Family Member Status Date o f Status Description Data Source(s) Unknown Female Problem [facility] ([facility]) Encounters Encounter Providers Location Date Indications Data Source(s ) Unknown [address] [facility] [facility] [address] 10/01/2020 12:00:00 AM EST eCW1 ([facility]) Unknown [address] [facility] [facility] [address] 06/01/2020 12:00:00 AM EDT eCW1 ([facility]) Outpatient Referrer: SHINE HOLDEN 03/28/2020 09:56:00 AM EDT [facility] Outpatient Attender: ZURDO KILPATRICK MDConsultant: ZURDO Dutta MD 11/04/2019 08:07:00 AM EST - 11/04/2019 08:07:00 AM EST [facility] Outpatient Attender: ZURDO KILPATRICK MD Family Practice 11/04/2019 0 7:00:00 AM EST [facility] ([facility]) Medications Medication Brand Name Start Date Product Form Dose Route Admi nistrative Instructions Pharmacy Instructions Status Indications Reaction Description Data Source(s) 10 mg 10/24/2020 12:00:00 AM EST tablet 30 TAKE 1 TABLET BY MOUTH DAILY TAKE 1 TABLET BY MOUTH DAILY SOLD: 10/24/2020 [facility] 10 mg 10/24/2020 12:00:00 AM EST tablet 30 TAKE 1 TABLET BY MOUTH DAILY TAKE 1 TABLET BY MOUTH DAILY SOLD: 12/04/2020 [facility] 0.75 mg/0.5 mL 10/04/2020 12:00:00 AM EST pen injector 2 INJECT 0.5ML UNDER THE SKIN ONCE WEEKLY DIRECTED INJECT 0.5ML UNDER THE SKIN ONCE WEEKLY DIRECTED SOLD: 10/10/2020 [facility] 0.75 mg/0.5 mL 10/04/2020 12:00:00 AM EST pen injector 2 INJECT 0.5ML UNDER THE SKIN ONCE WEEKLY DIRECTED INJECT 0.5ML UNDER THE SKIN ONCE WEEKLY DIRECTED SOLD: 11/16/2020 [facility] 80 mg 10/01/2020 12:00:00 AM EST tablet 90 TAKE ONE TABLET BY MOUTH EVERY DAY TAKE ONE TABLET BY MOUTH EVERY DAY SOLD: 10/04/2020 [facility] 81 mg 09/09/2020 12:00:00 AM EDT tablet,delayed release (DR/EC) 30 TAKE 1 TABLET BY MOUTH EVERY DAY TAKE 1 TABLET BY MOUTH EVERY DAY SOLD: 09/13/2020 [facility] 81 mg 09/09/2020 12:00:00 AM EDT tablet,delayed release (DR/EC) 30 TAKE 1 TABLET BY MOUTH EVERY DAY TAKE 1 TABLET BY MOUTH EVERY DAY SOLD: 10/13/2020 [facility] 1,250 mcg (50,000 unit) 06/02/2020 12:00:00 AM EDT capsule 12 TAKE ONE CAPSULE BY MOUTH ONCE WEEKLY TAKE ONE CAPSULE BY MOUTH ONCE WEEKLY SOLD: 06/04/2020 [facility] 10 mg 06/02/2020 12:00:00 AM EDT tablet 9 TAKE ONE TABLET BY MOUTH EVERY DAY NEEDED(PLAN LIMIT 9 TABLETS EVERY 26 DAYS TAKE ONE TABLET BY MOUTH EVERY DAY NEEDED(PLAN LIMIT 9 TABLETS EVERY 26 DAYS SOLD: 12/11/2020 [facility] 10 mg 06/02/2020 12:00:00 AM EDT tablet 9 TAKE ONE TABLET BY MOUTH EVERY DAY NEEDED(PLAN LIMIT 9 TABLETS EVERY 26 DAYS TAKE ONE TABLET BY MOUTH EVERY DAY NEEDED(PLAN LIMIT 9 TABLETS EVERY 26 DAYS SOLD: 06/04/2020 [facility] 10 mg 06/02/2020 12:00:00 AM EDT tablet 90 TAKE ONE TABLET BY MOUTH EVERY DAY TAKE ONE TABLET BY MOUTH EVERY DAY SOLD: 06/04/2020 [facility] 10 mg 06/02/2020 12:00:00 AM EDT tablet 9 TAKE ONE TABLET BY MOUTH EVERY DAY NEEDED(PLAN LIMIT 9 TABLETS EVERY 26 DAYS TAKE ONE TABLET BY MOUTH EVERY DAY NEEDED(PLAN LIMIT 9 TABLETS EVERY 26 DAYS SOLD: 10/10/2020 [facility] 80 mg 06/02/2020 12:00:00 AM EDT tablet 90 TAKE ONE TABLET BY MOUTH EVERY DAY TAKE ONE TABLET BY MOUTH EVERY DAY SOLD: 06/04/2020 [facility] 75 mg 05/28/2020 12:00:00 AM EDT capsule,extended releas e 24hr 30 TAKE 1 CAPSULE BY MOUTH ONCE A DAY WITH FOOD TAKE 1 CAPSULE BY MOUTH ONCE A DAY WITH FOOD SOLD: 05/28/2020 [facility] 75 mg 05/28/2020 12:00:00 AM EDT capsule,extended releas e 24hr 30 TAKE 1 CAPSULE BY MOUTH ONCE A DAY WITH FOOD TAKE 1 CAPSULE BY MOUTH ONCE A DAY WITH FOOD SOLD: 10/13/2020 [facility] 75 mg 05/28/2020 12:00:00 AM EDT capsule,extended releas e 24hr 30 TAKE 1 CAPSULE BY MOUTH ONCE A DAY WITH FOOD TAKE 1 CAPSULE BY MOUTH ONCE A DAY WITH FOOD SOLD: 11/16/2020 [facility] 75 mg 05/28/2020 12:00:00 AM EDT capsule,extended releas e 24hr 30 TAKE 1 CAPSULE BY MOUTH ONCE A DAY WITH FOOD TAKE 1 CAPSULE BY MOUTH ONCE A DAY WITH FOOD SOLD: 09/13/2020 [facility] 75 mg 05/28/2020 12:00:00 AM EDT capsule,extended releas e 24hr 30 TAKE 1 CAPSULE BY MOUTH ONCE A DAY WITH FOOD TAKE 1 CAPSULE BY MOUTH ONCE A DAY WITH FOOD SOLD: 07/08/2020 [facility] 75 mg 05/28/2020 12:00:00 AM EDT capsule,extended releas e 24hr 30 TAKE 1 CAPSULE BY MOUTH ONCE A DAY WITH FOOD TAKE 1 CAPSULE BY MOUTH ONCE A DAY WITH FOOD SOLD: 08/12/2020 [facility] atorvastatin 80 MG Oral Tablet ATORVASTATIN CALCIUM 05/21/2020 1 2:00:00 AM EDT tablet 30 TAKE 1 TABLET BY MOUTH EVERY DAY TAKE 1 T ABLET BY MOUTH EVERY DAY SOLD: 05/24/2020 [facility] 1,000 mg 05/21/2020 12:00:00 AM EDT tablet 60 TAKE 1 TABLET BY MOUTH TWICE A DAY TAKE 1 TABLET BY MOUTH TWICE A DAY SOLD: 05/24/2020 [facility] 1,000 mg 05/21/2020 12:00:00 AM EDT tablet 60 TAKE 1 TABLET BY MOUTH TWICE A DAY TAKE 1 TABLET BY MOUTH TWICE A DAY SOLD: 07/08/2020 [facility] 0.75 mg/0.5 mL 05/10/2020 12:00:00 AM EDT pen injector 2 INJECT 0.5ML UNDER THE SKIN ONCE WEEKLY DIRECTED INJECT 0.5ML UNDER THE SKIN ONCE WEEKLY DIRECTED SOLD: 05/12/2020 [facility] 0.75 mg/0.5 mL 05/10/2020 12:00:00 AM EDT pen injector 2 INJECT 0.5ML UNDER THE SKIN ONCE WEEKLY DIRECTED INJECT 0.5ML UNDER THE SKIN ONCE WEEKLY DIRECTED SOLD: 06/14/2020 [facility] 1,250 mcg (50,000 unit) 04/27/2020 12:00:00 AM EDT capsule 2 TAKE 1 CAPSULE BY MOUTH TWICE A MONTH TAKE 1 CAPSULE BY MOUTH TWICE A MONTH SOLD: 05/27/2020 [facility] 1,250 mcg (50,000 unit) 04/27/2020 12:00:00 AM EDT capsule 2 TAKE 1 CAPSULE BY MOUTH TWICE A MONTH TAKE 1 CAPSULE BY MOUTH TWICE A MONTH SOLD: 05/07/2020 [facility] 75 mg 03/16/2020 12:00:00 AM EDT capsule,extended releas e 24hr 30 TAKE 1 CAPSULE BY MOUTH EVERY DAY TAKE 1 CAPSULE BY MOUTH EVERY DAY SOLD: 03/23/2020 [facility] 10 mg 03/16/2020 12:00:00 AM EDT tablet 30 TAKE 1 TABLET BY MOUTH DAILY TAKE 1 TABLET BY MOUTH DAILY SOLD: 03/23/2020 [facility] 10 mg 03/16/2020 12:00:00 AM EDT tablet 30 TAKE 1 TABLET BY MOUTH DAILY TAKE 1 TABLET BY MOUTH DAILY SOLD: 04/23/2020 [facility] 75 mg 03/16/2020 12:00:00 AM EDT capsule,extended releas e 24hr 30 TAKE 1 CAPSULE BY MOUTH EVERY DAY TAKE 1 CAPSULE BY MOUTH EVERY DAY SOLD: 04/23/2020 [facility] 0.75 mg/0.5 mL 02/02/2020 12:00:00 AM EDT pen injector 2 INJECT 0.5ML UNDER SKIN ONCE WEEKLY DIRECTED INJECT 0.5ML UNDER SKIN ONCE WEEKLY DIRECTED SOLD: 02/06/2020 [facility] 0.75 mg/0.5 mL 02/02/2020 12:00:00 AM EDT pen injector 2 INJECT 0.5ML UNDER SKIN ONCE WEEKLY DIRECTED INJECT 0.5ML UNDER SKIN ONCE WEEKLY DIRECTED SOLD: 04/14/2020 [facility] 0.75 mg/0.5 mL 02/02/2020 12:00:00 AM EDT pen injector 2 INJECT 0.5ML UNDER SKIN ONCE WEEKLY DIRECTED INJECT 0.5ML UNDER SKIN ONCE WEEKLY DIRECTED SOLD: 03/14/2020 [facility] 75 mg 01/15/2020 12:00:00 AM EST capsule,extended releas e 24hr 30 TAKE ONE CAPSULE BY MOUTH EVERY DAY TAKE ONE CAPSULE BY MOUTH EVERY DAY SOLD: 01/20/2020 [facility] 0.75 mg/0.5 mL 11/06/2019 12:00:00 AM EST pen injector 2 INJECT 0.5ML UNDER SKIN ONCE WEEKLY DIRECTED INJECT 0.5ML UNDER SKIN ONCE WEEKLY DIRECTED SOLD: 01/08/2020 [facility] 0.75 mg/0.5 mL 11/06/2019 12:00:00 AM EST pen injector 2 INJECT 0.5ML UNDER SKIN ONCE WEEKLY DIRECTED INJECT 0.5ML UNDER SKIN ONCE WEEKLY DIRECTED SOLD: 12/15/2019 [facility] 0.75 mg/0.5 mL 11/06/2019 12:00:00 AM EST pen injector 2 INJECT 0.5ML UNDER SKIN ONCE WEEKLY DIRECTED INJECT 0.5ML UNDER SKIN ONCE WEEKLY DIRECTED SOLD: 11/13/2019 [facility] 1,000 mg 11/05/2019 12:00:00 AM EST tablet 180 TAKE 1 TABLET BY MOUTH TWO TIMES A DAY TAKE 1 TABLET BY MOUTH TWO TIMES A DAY SOLD: 02/24/2020 [facility] 81 mg 11/05/2019 12:00:00 AM EST tablet,delayed release (DR/EC) 30 TAKE 1 TABLET BY MOUTH EVERY DAY TAKE 1 TABLET BY MOUTH EVERY DAY SOLD: 07/08/2020 [facility] 81 mg 11/05/2019 12:00:00 AM EST tablet,delayed release (DR/EC) 30 TAKE 1 TABLET BY MOUTH EVERY DAY TAKE 1 TABLET BY MOUTH EVERY DAY SOLD: 05/24/2020 [facility] 33 gauge 11/05/2019 12:00:00 AM EST misc 180 USE DIRECTED TO TEST BLOOD SUGAR TWO TIMES A DAY USE DIRECTED TO TEST BLOOD SUGAR TWO TIMES A DAY SO LD: 08/27/2020 [facility] 33 gauge 11/05/2019 12:00:00 AM EST misc 180 USE DIRECTED TO TEST BLOOD SUGAR TWO TIMES A DAY USE DIRECTED TO TEST BLOOD SUGAR TWO TIMES A DAY SO LD: 02/24/2020 [facility] 81 mg 11/05/2019 12:00:00 AM EST tablet,delayed release (DR/EC) 30 TAKE 1 TABLET BY MOUTH EVERY DAY TAKE 1 TABLET BY MOUTH EVERY DAY SOLD: 03/23/2020 [facility] 1,000 mg 11/05/2019 12:00:00 AM EST tablet 180 TAKE 1 TABLET BY MOUTH TWO TIMES A DAY TAKE 1 TABLET BY MOUTH TWO TIMES A DAY SOLD: 11/13/2019 [facility] BLOOD SUGAR DIAGNOSTIC 11/05/2019 12:00:00 AM EST strip 100 TEST TWO TIMES A DAY TEST TWO TIMES A DAY SOLD: 09/30/2020 [facility] 80 mg 11/05/2019 12:00:00 AM EST tablet 90 TAKE 1 TABLET BY MOUTH EVERY DAY TAKE 1 TABLET BY MOUTH EVERY DAY SOLD: 11/13/2019 [facility] 81 mg 11/05/2019 12:00:00 AM EST tablet,delayed release (DR/EC) 30 TAKE 1 TABLET BY MOUTH EVERY DAY TAKE 1 TABLET BY MOUTH EVERY DAY SOLD: 11/13/2019 [facility] BLOOD SUGAR DIAGNOSTIC 11/05/2019 12:00:00 AM EST strip 100 TEST TWO TIMES A DAY TEST TWO TIMES A DAY SOLD: 01/08/2020 [facility] BLOOD SUGAR DIAGNOSTIC 11/05/2019 12:00:00 AM EST strip 100 TEST TWO TIMES A DAY TEST TWO TIMES A DAY SOLD: 11/13/2019 [facility] BLOOD SUGAR DIAGNOSTIC 11/05/2019 12:00:00 AM EST strip 100 TEST TWO TIMES A DAY TEST TWO TIMES A DAY SOLD: 07/30/2020 [facility] 33 gauge 11/05/2019 12:00:00 AM EST misc 180 USE DIRECTED TO TEST BLOOD SUGAR TWO TIMES A DAY USE DIRECTED TO TEST BLOOD SUGAR TWO TIMES A DAY SO LD: 05/24/2020 [facility] BLOOD SUGAR DIAGNOSTIC 11/05/2019 12:00:00 AM EST strip 100 TEST TWO TIMES A DAY TEST TWO TIMES A DAY SOLD: 04/14/2020 [facility] 10 mg 11/05/2019 12:00:00 AM EST tablet 30 TAKE 1 TABLET BY MOUTH DAILY TAKE 1 TABLET BY MOUTH DAILY SOLD: 01/20/2020 [facility] 10 mg 11/05/2019 12:00:00 AM EST tablet 30 TAKE 1 TABLET BY MOUTH DAILY TAKE 1 TABLET BY MOUTH DAILY SOLD: 02/24/2020 [facility] 10 mg 11/05/2019 12:00:00 AM EST tablet 30 TAKE 1 TABLET BY MOUTH DAILY TAKE 1 TABLET BY MOUTH DAILY SOLD: 12/15/2019 [facility] BLOOD SUGAR DIAGNOSTIC 11/05/2019 12:00:00 AM EST strip 100 TEST TWO TIMES A DAY TEST TWO TIMES A DAY SOLD: 06/04/2020 [facility] BLOOD-GLUCOSE METER 11/05/2019 12:00:00 AM EST misc 1 USE DIRECTED TO TEST BLOOD SUGARS (CURRENTLY TWICE A DAY) USE DIRECTED TO TEST BLOOD SUGARS (CURRENTLY TWICE A DAY) SOLD: 11/13/2019 [facility] 81 mg 11/05/2019 12:00:00 AM EST tablet,delayed release (DR/EC) 30 TAKE 1 TABLET BY MOUTH EVERY DAY TAKE 1 TABLET BY MOUTH EVERY DAY SOLD: 04/23/2020 [facility] 81 mg 11/05/2019 12:00:00 AM EST tablet,delayed release (DR/EC) 30 TAKE 1 TABLET BY MOUTH EVERY DAY TAKE 1 TABLET BY MOUTH EVERY DAY SOLD: 01/20/2020 [facility] 1,250 mcg (50,000 unit) 11/05/2019 12:00:00 AM EST capsule 6 TAKE 1 CAPSULE BY MOUTH TWICE A MONTH TAKE 1 CAPSULE BY MOUTH TWICE A MONTH SOLD: 02/06/2020 [facility] 81 mg 11/05/2019 12:00:00 AM EST tablet,delayed release (DR/EC) 30 TAKE 1 TABLET BY MOUTH EVERY DAY TAKE 1 TABLET BY MOUTH EVERY DAY SOLD: 02/24/2020 [facility] 81 mg 11/05/2019 12:00:00 AM EST tablet,delayed release (DR/EC) 30 TAKE 1 TABLET BY MOUTH EVERY DAY TAKE 1 TABLET BY MOUTH EVERY DAY SOLD: 08/12/2020 [facility] 81 mg 11/05/2019 12:00:00 AM EST tablet,delayed release (DR/EC) 30 TAKE 1 TABLET BY MOUTH EVERY DAY TAKE 1 TABLET BY MOUTH EVERY DAY SOLD: 12/15/2019 [facility] 1,250 mcg (50,000 unit) 11/05/2019 12:00:00 AM EST capsule 6 TAKE 1 CAPSULE BY MOUTH TWICE A MONTH TAKE 1 CAPSULE BY MOUTH TWICE A MONTH SOLD: 11/13/2019 [facility] 10 mg 11/05/2019 12:00:00 AM EST tablet 30 TAKE 1 TABLET BY MOUTH DAILY TAKE 1 TABLET BY MOUTH DAILY SOLD: 11/13/2019 [facility] 80 mg 11/05/2019 12:00:00 AM EST tablet 90 TAKE 1 TABLET BY MOUTH EVERY DAY TAKE 1 TABLET BY MOUTH EVERY DAY SOLD: 02/24/2020 [facility] BLOOD SUGAR DIAGNOSTIC 11/05/2019 12:00:00 AM EST strip 100 TEST TWO TIMES A DAY TEST TWO TIMES A DAY SOLD: 02/24/2020 [facility] 33 gauge 11/05/2019 12:00:00 AM EST misc 180 USE DIRECTED TO TEST BLOOD SUGAR TWO TIMES A DAY USE DIRECTED TO TEST BLOOD SUGAR TWO TIMES A DAY SO LD: 11/13/2019 [facility] Ozempic (0.25 Or 0.5 MG/Dose) Ozempic (0.25 Or 0.5 MG/Dose) 11/04/2019 12:00:00 AM EST active MEDENT ([facility]) Ergocalciferol 74946 UNT Oral Capsule Vitamin D (Ergocalcife rol) 11/04/2019 12:00:00 AM EST ORAL active M EDENT ([facility]) 75 mg 10/27/2019 12:00:00 AM EST capsule,extended releas e 24hr 90 TAKE ONE CAPSULE BY MOUTH EVERY DAY TAKE ONE CAPSULE BY MOUTH EVERY DAY SOLD: 10/28/2019 [facility] 10 mg 10/17/2019 12:00:00 AM EST tablet 30 TAKE 1 TABLET BY MOUTH DAILY TAKE 1 TABLET BY MOUTH DAILY SOLD: 10/20/2019 [facility] Insurance Providers Payer name Policy type / Coverage type Policy ID Covered green party ID Covered green party's relationship to varner Policy Varner Plan Information [facility] COMMUNITY PLAN [facility] [id number] SP [id number] [facility] [id number] SP [id number] [facility]) O [id number] S [id number] [facility] COMMUNTY PLAN [id number] Pay Commercial [id number] Self [id number] [employer] AMERICHOICE XIX O [id number] 18 [id number] [facility] COMMUNITY PLAN [id number] 18 [id number] On License Of [facility] Community Plan Medicaid [id number] Self [id number] On License Of [facility] Community Plan Medicaid [id number] Self [id number] On License Of [facility] Community Plan Medicaid [id number] Self [id number] On License Of [facility] Community Plan Medicaid Self [facility]([place]) O [id number] S [id number] UN AMERICHOICE XIX O [id number] 18 [id number] SECURE HORIZONS S [id number] S [id number] [employer] P [id number] S [id number] [facility] COMMUNITY PLAN [facility] [id number] SP [id number] MEDICAID [id number] SP [id number] Problems, Conditions, and Diagnoses Code Display Name Description Problem Type Effective Dates Data Source(s) G43.630 [id number] Migraine with aura a nd without status migrainosus, not intractable Problem 05/14/2020 12:00:00 AM EDT eCW1 ([facility]) I25.10 [id number] 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 Problem 05/14/2020 12:00:00 AM EDT eCW1 ([facility]) E11.9 [id number] Type 2 diabetes adriane itus without complication, without long-term current use of insulin Problem 05/14/2020 12:00:00 AM EDT eCW1 (On license of [facility]) F17.218 [id number] Cigarette nicotine d ependence with other nicotine- induced disorder Problem 05/14/2020 12:00:00 AM EDT eCW1 ([facility]) E78.2 [id number] Mixed hyperlipidemia Problem 05/14/2020 12:0 0:00 AM EDT eCW1 ([facility]) I10 [id number] Essential hypertension Problem 05/14/2020 12 :00:00 AM EDT eCW1 ([facility]) F41.8 [id number] Anxiety with depression Problem 05/14/2020 1 2:00:00 AM EDT eCW1 ([facility]) F411 Generalized anxiety disorder Generalized anxiety disor jasper Diagnosis 11/04/2019 08:07:00 AM [facility] I10 Essential (primary) hypertension Essential (primary) h ypertension Diagnosis 11/04/2019 08:07:00 AM [facility] E785 Hyperlipidemia, unspecified Hyperlipidemia, unspecifie d Diagnosis 11/04/2019 08:07:00 AM [facility] Z9111 Patient's noncompliance with dietary reg imen Patient's noncompliance with dietary regimen Diagnosis 11/04/2019 08:07:00 AM [facility] Z9119 Patient's noncompliance with other medic al treatment and regimen Patient's noncompliance with other medical treatment and regimen Diagnosis 11/04/2019 08:07:00 AM [facility] E559 Vitamin D deficiency, unspecified Vitamin D defi ciency, unspecified Diagnosis 11/04/2019 08:07:00 AM [facility] E119 Type 2 diabetes mellitus without complic ations Type 2 diabetes mellitus without complications Diagnosis 11/04/2019 08:07:00 AM [facility] Surgeries/Procedures Procedure Description Date Indications Data Source(s) Brief Emotional/Behav Assessment W/ Scoring Doc Per Standard Inst 11/04/2019 12:00:00 AM EST [facility] ([facility] Results ID Date Data Source [id number] 11/04/2019 08:48:00 AM EST MEDENT ([facility]) Name Value Range Interpretation Code Description Data Tyesha rce(s) Supporting Document(s) Thyroxine (T4) free [Mass/volume] in Serum or Plasma 0.94 ng/dL 0.93- 1.70 MED[facility] ([facility]) FASTING~.~.~E119 Calcidiol [Mass/volume] in Serum or Plasma 23 ng/mL [facility] ([facility]) FASTING~.~.~E119 Thyrotropin [Units/volume] in Serum or Plasma 3.22 uIU/mL 0.47-5.01 [facility] ([facility]) FASTING~.~.~E119 Natriuretic peptide.B prohormone N-Terminal [Mass/volu me] in Serum or Plasma 17 pg/mL 0-125 MED[facility] ([facility]) FASTING~.~.~E119 ID Date Data Source [id number] 11/04/2019 08:48:00 AM EST MEDENT ([facility]) Name Value Range Interpretation Code Description Data Tyesha rce(s) Supporting Document(s) Urinalysis (SEE NOTE) [facility] ([facility]) FASTING~.~.~E119 Source R MEDENT ([facility]) FASTING~.~.~E119 Clarity clear MEDENT ([facility]) FASTING~.~.~E119 Color yellow MED[facility] ([facility]) FASTING~.~.~E119 Spec [place] 1.025 1.001-1.030 MEDENT ([facility]) FASTING~.~.~E119 Glucose 250 Abnormal (applies to non-numeric res ults) [facility] ([facility]) FASTING~.~.~E119 pH 5 5-9 [facility] ([facility]) FASTING~.~.~E119 Bilirubin NEG [facility] ([facility]) FASTING~.~.~E119 Ketone NEG [facility] ([facility]) FASTING~.~.~E119 Protein 15 [facility] ([facility]) FASTING~.~.~E119 Blood NEG [facility] ([facility]) FASTING~.~.~E119 Nitrite NEG MED[facility] ([facility]) FASTING~.~.~E119 Leuk Est NEG [facility] ([facility]) FASTING~.~.~E119 Microscopic See Below MED[facility] ([facility]) FASTING~.~.~E119 Urobilinogen NOR MEDENT ([facility]) FASTING~.~.~E119 Epithelial FEW MEDENT ([facility]) FASTING~.~.~E119 ID Date Data Source [id number] 11/04/2019 08:48:00 AM EST MEDENT ([facility]) Name Value Range Interpretation Code Description Data Tyesha rce(s) Supporting Document(s) Cve Panel (SEE NOTE) MEDENT ([facility]) FASTING~.~.~E119 Cholesterol 258 mg/dL 131-200 Above high normal [facility] FASTING~.~.~E119 Triglycerides 127 mg/dL 35-160 [facility] ([facility]) FASTING~.~.~E119 HDL 49 mg/dL 29-86 [facility] ([facility]) FASTING~.~.~E119 LDL 199 mg/dL 65-175 Above high normal MED[facility] ([facility]) FASTING~.~.~E119 Risk Factor 5.3 3.4-4.9 Above high normal [facility] FASTING~.~.~E119 LDL/HDL 4.06 1.00-3.55 Above high normal MED[facility] ([facility]) FASTING~.~.~E119 ID Date Data Source [id number] 11/04/2019 08:48:00 AM EST MEDENT ([facility]) Name Value Range Interpretation Code Description Data Tyesha rce(s) Supporting Document(s) Comprehensive Metabo (SEE NOTE) MEDENT ( [facility]) FASTING~.~.~E119 Sodium 139 meq/L 134-153 MED[facility] ([facility]) FASTING~.~.~E119 Chloride 101 meq/L 98-107 [facility] ([facility]) FASTING~.~.~E119 Potassium 4.6 meq/L 3.6-5.0 [facility] ([facility]) FASTING~.~.~E119 Co2 24 meq/L 22-30 [facility] ([facility]) FASTING~.~.~E119 Glucose 206 mg/dL 65-110 Above high normal MED[facility] ([facility]) FASTING~.~.~E119 BUN 20 mg/dL 7-21 [facility] ([facility]) FASTING~.~.~E119 Creatinine 0.8 mg/dL 0.7-1.5 MED[facility] ([facility]) FASTING~.~.~E119 BUN/Creat 25 8-27 [facility] FASTING~.~.~E119 Albumin 4.4 g/dL 3.9-5.0 [facility] ([facility]) FASTING~.~.~E119 Total Protein 7.6 g/dL 6.3-8.2 [facility] ([facility]) FASTING~.~.~E119 Globulin 3.2 GM/DL 2.4-3.2 [facility]) FASTING~.~.~E119 A/G Ratio 1.4 0.8-2.0 [facility] ([facility]) FASTING~.~.~E119 Calcium 9.7 mg/dL 8.4-10.2 [facility] ([facility]) FASTING~.~.~E119 Alkaline Phos 91 U/L 38-126 [facility] ([facility]) FASTING~.~.~E119 Sgot/Ast 14 U/L 5-40 [facility] ([facility]) FASTING~.~.~E119 Total Bili <0.7 mg/dL 0.2-1.3 [facility]) FASTING~.~.~E119 Age 59 yrs MED[facility] ([facility]) FASTING~.~.~E119 SGPT/Alt 15 U/L 7-56 [facility]) FASTING~.~.~E119 Anion Gap 14.0 mmol/L 8.0-16.0 [facility] ([facility]) FASTING~.~.~E119 Non-Aa GFR >60 mL/min [facility] ([facility]) FASTING~.~.~E119 Afr Amer GFR >60 mL/min [facility] ([facility]) FASTING~.~.~E119 ID Date Data Source [id number] 11/04/2019 08:48:00 AM EST MED[facility] ([facility]) Name Value Range Interpretation Code Description Data Tyesha rce(s) Supporting Document(s) Hemoglobin A1c/Hemoglobin.total in Blood 8.0 % 4.4-6.1 Above high normal MED[facility] ([facility]) FASTING~.~.~E119 ID Date Data Source [id number] 11/04/2019 08:48:00 AM EST MED[facility] ([facility]) Name Value Range Interpretation Code Description Data Tyesha rce(s) Supporting Document(s) CBC W/Automated Diff (SEE NOTE) [facility] ( [facility]) FASTING~.~.~E119 Hemoglobin 16.0 g/dL 14.0-16.0 [facility] ([facility]) FASTING~.~.~E119 RBC 5.31 10^6/uL 4.50-6.30 [facility] ([facility]) FASTING~.~.~E119 WBC 6.6 10^3/uL 4.2-11.0 [facility] ([facility]) FASTING~.~.~E119 Hematocrit 48.2 % 41.0-51.0 [facility] ([facility]) FASTING~.~.~E119 MCH 30.1 pg 27.0-34.0 [facility] ([facility]) FASTING~.~.~E119 MCV 90.8 fL 80.0-94.0 [facility] ([facility]) FASTING~.~.~E119 RDW 12.6 % 11.5-14.8 [facility] ([facility]) FASTING~.~.~E119 Platelets 309 10^3/uL 150-450 [facility] ([facility]) FASTING~.~.~E119 MCHC 33.2 g/dL 31.0-36.0 [facility] ([facility]) FASTING~.~.~E119 MPV 9.4 fL 7.4-10.4 [facility] ([facility]) FASTING~.~.~E119 Neut 59.1 % 37.0-80.0 [facility] ([facility]) FASTING~.~.~E119 Robertson 6.6 % 3.0-8.0 [facility] ([facility]) FASTING~.~.~E119 Eos 1.5 % 0.0-7.0 [facility] ([facility]) FASTING~.~.~E119 Lymph 31.7 % 25.0-40.0 [facility] ([facility]) FASTING~.~.~E119 %Ig 0.2 % 0.0-0.0 Above high normal [facility] ([facility]) FASTING~.~.~E119 Baso 0.9 % 0.0-2.0 [facility] ([facility]) FASTING~.~.~E119 %NRBC 0.0 % 0.0-0.0 [facility] ([facility]) FASTING~.~.~E119 #Neut 3.91 10^3/uL 2.00-6.90 [facility] ([facility]) FASTING~.~.~E119 #Lymph 2.10 10^3/uL 0.60-3.40 [facility] ([facility]) FASTING~.~.~E119 #Robertson 0.44 10^3/uL 0.00-0.90 [facility] ([facility]) FASTING~.~.~E119 #Ig 0.01 10^3/uL 0.00-0.10 [facility] ([facility]) FASTING~.~.~E119 #Baso 0.06 10^3/uL 0.00-0.20 [facility] ([facility]) FASTING~.~.~E119 #Eos 0.10 10^3/uL 0.00-0.70 [facility] ([facility]) FASTING~.~.~E119 #NRBC 0.00 10^3/uL 0.00-0.00 [facility] ([facility]) FASTING~.~.~E119 RBC Morph NOT INDICATED [facility] ([facility]) FASTING~.~.~E119 Manual Diff NOT INDICATED [facility] ([facility]) FASTING~.~.~E119 ID Date Data Source [id number] 11/15/2019 03:41:00 PM [facility] Name Value Range Interpretation Code Description Data Tyesha rce(s) Supporting Document(s) Amphetamines [Presence] in Urine by Screen method Negative ng/mL Cu oocp=9498 [facility] Amphetamine test includes Amphetamine an d Methamphetamine. Barbiturates [Presence] in Urine by Screen method Negative ng/mL Cuto le=543 [facility] Benzodiazepines [Presence] in Urine Negative ng/mL Ityoqu=388 [facility] See Final Results Benzoylecgonine [Presence] in Urine Negative ng/mL Bctdsx=932 [facility] Opiates [Presence] in Urine Negative ng/mL Nkrblb=920 [facility] Opiate test includes Codeine and Morphin e only. Phencyclidine [Presence] in Urine Negative ng/mL Cutoff=25 [facility] Positive Carboxy tetrahydrocannabinol [Mass/volume] in Urine 90 ng/mL Cutoff =15 [facility] ID Date Data Source [id number] 11/07/2019 08:06:00 AM [facility] Name Value Range Interpretation Code Description Data Tyesha rce(s) Supporting Document(s) Prostate specific Ag [Mass/volume] in Serum or Plasma 0.7 ng/mL 0.0- 4.0 [facility] Emilia ECLIA methodology.According to the [employer] [employer], Serum PSA shoulddecrease and remain at undetectable levels after radicalprostatectomy. The AUA defines biochemical recurrence as an initialPSA value 0.2 ng/mL or greater followed by a subsequent confirmatoryPSA value 0.2 ng/mL or greater.Values obtained with different assay methods or kits cannot be usedinterchangeably. Results cannot be interpreted as absolute evidenceof the presence or absence of malignant disease. Reflex Criteria COMMENT [facility] The percent free PSA is performed on a r eflex basis only when thetotal PSA is between 4.0 and 10.0 ng/mL. ID Date Data Source [id number] 11/04/2019 03:01:00 PM [facility] Name Value Range Interpretation Code Description Data Tyesha rce(s) Supporting Document(s) Hemoglobin A1c/Hemoglobin.total in Blood 8.0 % 4.4 - 6.1 H [facility] {A1]{HB] ID Date Data Source [id number] 11/04/2019 02:07:00 PM [facility] Name Value Range Interpretation Code Description Data Tyesha rce(s) Supporting Document(s) BNP 17 PG/ML 0 - 125 [facility] ID Date Data Source [id number] 11/04/2019 02:07:00 PM [facility] Value Range Interpretation Code Description Data Tyesha rce(s) Supporting Document(s) Calcidiol [Moles/volume] in Serum or Plasma 23 NG/ML [facility] VITAMIN-D(2 5HYDROXY) Deficiency: <=20 ng/ml Insufficiency: 21-29 ng/ml Preferred level: => 30 ng/ml ID Date Data Source [id number] 11/04/2019 02:07:00 PM [facility] Value Range Interpretation Code Description Data Tyesha rce(s) Supporting Document(s) Thyroxine (T4) free index in Serum or Plasma by calculation 0.94 NG/DL 0.93 - 1.70 [facility] ID Date Data Source [id number] 11/04/2019 02:07:00 PM [facility] Name Value Range Interpretation Code Description Data Tyesha rce(s) Supporting Document(s) Thyrotropin [Units/volume] in Serum or Plasma by Detec tion limit <= 0.05 mIU/L 3.22 uIU/mL 0.47 - 5.01 [facility] ID Date Data Source [id number] 11/04/2019 01:59:00 PM [facility] Value Range Interpretation Code Description Data Tyesha rce(s) Supporting Document(s) [facility] Cholesterol [Mass/volume] in Serum or Plasma 258 MG/DL 131 - 200 H [facility] Deprecated Triglyceride [Mass/volume] in Serum or Plasma 127 MG/DL 3 5 - 160 [facility] HDL 49 MG/DL 29 - [facility] Cholesterol in LDL/Cholesterol in HDL [Mass Ratio] in Serum or Plasma 199 mg/dL 65 - 175 H [facility] Cholesterol.total/Cholesterol in HDL [Mass Ratio] in Serum o r Plasma 5.3 3.4 - 4.9 H [facility] LDL/HDL 4.06 1.00 - 3.[address] [facility] CVE RISK CHOL/HDL LDL/HDLMEN: 1/2 AVERAGE 3.43 1.00 AVERAGE 4.97 3.55 2X AVERAGE 9.55 6.25 3X AVERAGE 23.99 7.99WOMEN: 1/2 AVERAGE 3.27 1.47 AVERAGE 4.44 3.22 2X AVERAGE 7.05 5.03 3X AVERAGE 11.04 6.14 ID Date Data Source [id number] 11/04/2019 01:59:00 PM EST [facility] Name Value Range Interpretation Code Description Data Tyesha rce(s) Supporting Document(s) COMPREHENSIVE METABOLIC PANEL [facility] COMPREHENSIVE METABOLIC PANEL Sodium [Moles/volume] in Serum or Plasma 139 mEq/L 134 - 153 [facility] Potassium [Moles/volume] in Serum or Plasma 4.6 mEq/L 3.6 - 5.0 [facility] Chloride [Moles/volume] in Serum or Plasma 101 mEq/L 98 - 107 [facility] Carbon dioxide, total [Moles/volume] in Serum or Plasma 24 MEQ/L 22 - 30 [facility] Glucose [Mass/volume] in Serum or Plasma 206 MG/DL 65 - 110 H [facility] BUN 20 MG/DL 7 - [facility] Creatinine [Mass/volume] in Serum or Plasma 0.8 MG/DL 0.7 - 1.5 [facility] BUN/CREAT 25 8 - 27 [facility] al Protein [Mass/volume] in Serum or Plasma 7.6 G/DL 6.3 - 8.2 [facility] Albumin [Mass/volume] in Serum or Plasma 4.4 G/DL 3.9 - 5.0 [facility] Globulin [Mass/volume] in Serum by calculation 3.2 GM/DL 2.4 - 3.2 [facility] A/G RATIO 1.4 0.8 - 2.0 [facility] Calcium [Mass/volume] in Serum or Plasma 9.7 MG/DL 8.4 - 10.2 [facility] Bilirubin.total [Mass/volume] in Serum or Plasma <0.7 MG/DL 0.2 - 1.3 [facility] Alkaline phosphatase [Enzymatic activity/volume] in Serum or Plasma 91 U/L 38 - 126 [facility] Aspartate aminotransferase [Enzymatic activity/volume] in Serum or Plasma 14 U/L 5 - 40 [facility] Alanine aminotransferase [Enzymatic activity/volume] in Seru m or Plasma 15 U/L 7 - 56 [facility] Anion gap 3 in Serum or Plasma 14.0 mmol/L 8.0 - 16.0 [facility] AGE 59 yrs [facility] NON-AA GFR >60 mL/min [facility] AFR AMER GFR >60 mL/min [facility] Male GFR In terprentation 20-49 yrs >60 mL/min Normal 50-59 yrs >56 mL/min Normal 60-69 yrs >49 mL/min Normal 70-79yrs >42 mL/min Normal 80 and above >35 mL/min Normal Female GFR Interpretation 20-39 yrs >60 mL/min Normal 40-49 yrs >58 mL/min Normal 50-59 yrs >51 mL/min Normal 60-69 yrs >45 mL/min Normal 70-79 yrs >39 mL/min Normal 80 and above >32 mL/min Normal ID Date Data Source [id number] 11/04/2019 01:34:00 PM EST [facility] Name Value Range Interpretation Code Description Data Tyesha rce(s) Supporting Document(s) URINALYSIS [facility] URINALYSIS SOURCE R [facility] al COLOR yellow NORMAL: Yellow [facility] CLARITY clear NORMAL: Clear [facility] Specific gravity of Urine by Test strip 1.025 1.001 - 1.030 [facility] pH 5 5 - 9 [facility] Glucose [Mass/volume] in Urine by Test strip 250 NORMAL: Negat mireille A [facility] Bilirubin.total [Presence] in Urine by Test strip NEG NORMAL: Negative [facility] Ketones [Presence] in Urine by Test strip NEG NORMAL: Negative [facility] Protein [Mass/volume] in Urine by Test strip 15 NORMAL: Negat mireille [facility] Nitrite [Presence] in Urine by Test strip NEG NORMAL: Negative [facility] BLOOD NEG NORMAL: Negative [facility] Leukocyte esterase [Presence] in Urine by Test strip NEG NEREIDA L: Negative [facility] Urobilinogen [Mass/volume] in Urine by Test strip NOR less sunny n 1.0 mg/dL [facility] MICROSCOPIC See Below [facility] EPITHELIAL FEW NORMAL: NONE SEEN [facility] ID Date Data Source [id number] 11/04/2019 01:29:00 PM EST [facility] Name Value Range Interpretation Code Description Data Tyesha rce(s) Supporting Document(s) CBC W/AUTOMATED DIFF [facility] COMPLETE BLOOD COUNT Leukocytes [#/volume] in Blood by Automated count 6.6 10^3/uL 4.2 - 1 1.0 [facility] Erythrocytes [#/volume] in Blood by Automated count 5.31 10^6/uL 4. 50 - 6.30 [facility] Hemoglobin [Mass/volume] in Blood 16.0 g/dL 14.0 - 16.0 [facility] Hematocrit [Volume Fraction] of Blood by Automated count 48.2 % 4 1.0 - 51.0 [facility] Erythrocyte mean corpuscular volume [Entitic volume] by Auto mated count 90.8 fL 80.0 - 94.0 [facility] Erythrocyte mean corpuscular hemoglobin [Entitic mass] by Automated count 30.1 pg 27.0 - 34.0 [facility] Erythrocyte mean corpuscular hemoglobin concentration [Mass/volume] by Automated count 33.2 g/dL 31.0 - 36.0 [facility] Erythrocyte distribution width [Ratio] by Automated count 12.6 % 11.5 - 14.8 [facility] Platelets [#/volume] in Blood by Automated count 309 10^3/uL 150 - 45 0 [facility] Platelet mean volume [Entitic volume] in Blood by Automated count 9.4 fL 7.4 - 10.4 [facility] Neutrophils/100 leukocytes in Blood by Automated count 59.1 % 37. 0 - 80.0 [facility] Lymphocytes/100 leukocytes in Blood by Manual count 31.7 % 25.0 - 40.0 [facility] Monocytes/100 leukocytes in Blood by Automated count 6.6 % 3.0 - 8.0 [facility] Eosinophils/100 leukocytes in Blood by Automated count 1.5 % 0.0 - 7.0 [facility] Basophils/100 leukocytes in Blood by Automated count 0.9 % 0.0 - 2.0 [facility] %IG 0.2 % 0.0 - 0.0 H [facility] %NRBC 0.0 % 0.0 - 0.0 [facility] al Neutrophils [#/volume] in Blood by Automated count 3.91 10^3/uL 2.00 - 6.90 [facility] Lymphocytes [#/volume] in Blood by Automated count 2.10 10^3/uL 0.60 - 3.40 [facility] Monocytes [#/volume] in Blood by Automated count 0.44 10^3/uL 0.00 - 0.90 [facility] Eosinophils [#/volume] in Blood by Automated count 0.10 10^3/uL 0.00 - 0.70 [facility] Basophils [#/volume] in Blood by Automated count 0.06 10^3/uL 0.00 - 0.20 [facility] #IG 0.01 10^3/uL 0.00 - 0.10 [facility] #NRBC 0.00 10^3/uL 0.00 - 0.00 [facility] MANUAL DIFF NOT INDICATED [facility] RBC MORPH NOT INDICATED [facility] Procedure Social History Code Duration Value Status Description Data Source(s ) Smoking 05/14/2020 12:00:00 AM EDT Current Smoker completed Curre nt Smoker eCW1 ([facility]) Smoking 05/14/2020 12:00:00 AM EDT Current Smoker completed Curre nt Smoker eCW1 ([facility]) Vital Signs ID Date Data Source UNK Name Value Range Interpretation Code Description Data Source(s) Body surface area 2.24 m2 2.24 m2 [facility] Body mass index (BMI) [Ratio] 28.9 kg/m2 28.9 k g/m2 [facility] ([facility]) Body height 73 [in_i] 73 [in_i] [facility] 6'1" Body weight 99.338 kg 99.338 kg [facility] ([facility]) Body weight 219.00 [lb_av] 219.00 [lb_av] MEDEN T ([facility]) Oxygen saturation in Arterial blood by Pulse oximetry 97 % 97 % [facility] ([facility]) Respiratory rate 16 /min 16 /min [facility] ( [facility]) Body temperature 97.8 [degF] 97.8 [degF] [facility] ([facility]) Heart rate 57 /min 57 /min [facility] ([facility]) Diastolic blood pressure 62 mm[Hg] 62 mm[Hg] [facility] ([facility]) Systolic blood pressure 118 mm[Hg] 118 mm[Hg] [facility]
--- OUTSIDE RECORDS SUMMARY | 2020-12-21 00:35 | CCD ---
Author Author [facility] Organization [facility] Address Unknown Phone Unavailable Care Team Providers Care School Bus [employer] Name Role Phone Emelyn Almodovar PROBLEMS Type Condition ICD9-CM Code TWA33-IU Code Onset Dates Condition S tatus SNOMED Code Notes Problem Anxiety with depression F41.8 Active 44038081 6 Problem Essential hypertension I10 Active 22348137 Problem Mixed hyperlipidemia E78.2 Active 143009876 Problem Cigarette nicotine dependence with other nicotin e-induced disorder F17.218 Active 56249286808503716 Problem Type 2 diabetes mellitus wit hout complication, without long-term current use of insulin E11.9 Active 171674443 Problem Coronary artery disease invo lving belkofski coronary artery of belkofski heart without angina pectoris I25.10 Active 951619768 Problem Migraine with aura and without status migrainosu s, not intractable G43.109 Active 9577300 ALLERGIES No Known Allergies ENCOUNTERS from 1960 to 2020-11-26 Encounter Location Date Provider Diagnosis [address] [address] Sep, 020 Emelyn Almodovar IMMUNIZATIONS Vaccine Route Administration Date Status Influenza (6mo & up) Fluzone Unknown March 28, 2017 Oth ers Influenza (6mo & up) Fluzone Unknown Sep 27, 2015 Ref used SOCIAL HISTORY Tobacco Use: Social History Observation Description Date Details (start date - stop date) Current Smoker Sex Assigned At : Social History Observation Description Sex Assigned At Unknown Audit Question Answer Notes Total Score: 0 Interpretation: Alcohol Education Language: Question Answer Notes Languages spoken: [place] Baptist: Question Answer Notes Baptist 21 Sabianist Sexual Hx: Question Answer Notes Had sex in the last 12 months (vaginal, oral, or anal)? Yes Have you ever had an STD? No with Women only Use protection? No Drug and Alcohol Question Answer Notes Total Score: 6 Interpretation: Substantial level Tobacco Use: Question Answer Notes Are you a: current smoker Smoking Cessation Information Given 05/14/2020 Patient counseled on the dangers of tobacco use and urged to quit: 05/14/2020 How many cigarettes a day do you smoke? 31 or more Are you interested in quitting? Not ready to quit Counseled the patient on smoking effects, education provided 05/14/2020 REASON FOR REFERRAL No Information VITAL SIGNS No information MEDICATIONS Medication SIG (Take, Route, Frequency, Duration) Notes Start Da te End Date Status Lisinopril 10 MG 1 tablet Orally Once a day for 90 days Active Erythromycin 5 MG/GM 1 cm to affected eye Ophthal eben every 4 hours while awake for 5 days March, Not-Taking Trulicity 0.75 MG/0.5ML 1 injection Subcutaneous weekly Active Venlafaxine HCl ER 75 MG 1 capsule with food Orally Once a day for 90 days Active Metformin HCl 1000 MG 1 tablet Orally Daily Active Pravastatin Sodium 80 MG 1 tablet Orally Once a day for 90 Active Acetaminophen 500 MG 1 capsule as needed Orally every 6 hrs Not-Taking Aspir-81 81 MG 1 tablet Orally Once a day Active Ibuprofen 800 MG 1 tablet Orally Three times a day Active SM Aspirin Adult Low Strength 81 MG 1 tablet Orally Once a day Not-Taking Tums Ultra 1000 1000 MG 1 tablet Orally Three times a day Active Benadryl Allergy/Cold 12.5-30-500 MG 2 tablets as needed Orally alonzo ry 6 hrs Active Rizatriptan Benzoate 10 MG 1 tablet as needed one time Orally Once a day for 90 days Active Albuterol Sulfate HFA 108 (90 Base) MCG/ACT 2 puffs as needed Inhalation every 4 hrs for 1 month Sep, Not-Taking Vitamin D 41628 UNIT 1 capsule Orally weekly for 90 days Active PROCEDURES No Information RESULTS No Results REASON FOR VISIT needs appt MEDICAL (GENERAL) HISTORY Type Description Date Medical History type 2 DM Medical History hyperlipidemia Medical History HTN Medical History Migraine headaches Medical History Anxiety Medical History Hx cocaine addiction Medical History smoker Surgical History appendectomy Age 12 Surgical History Abdominal Age 12 Surgical History Stents Heart - [place] 2014 Surgical History right carpal tunnel - [place] 2016 Surgical History removal of foreign body from abdomen 02/18 Hospitalization History Abdominal Surgery - [facility] 2019 Goals Section No Information Health Concerns No Information MEDICAL EQUIPMENT No Information MENTAL STATUS No Information FUNCTIONAL STATUS No Information ASSESSMENTS No Information PLAN OF TREATMENT Medication Medication Name Sig Start Date Stop Date Pravastatin Sodium 80 MG 1 tablet Orally Once a day for 90 Insurance Providers Payer Name Payer Address Payer Phone Insured Name Patient Relati onship to Insured Coverage Start Date Coverage End Date [facility] [employer] [facility] [address] [facility] [id number] GILDA HAGAN self
[2020-12-21] MEDS ORDERED: ISOVUE-370 76% 100ML VIAL As Ordered ONE (00:41)
[2020-12-21] MEDS ORDERED: NS 1,000 ML IV ONE (00:45)
[2020-12-21 00:52] LABS: BASO # 0.1 10^3/uL (0.0-0.2); BASO % 0.5 % (0.0-1.0); EOS % 0.3 % (0.0-3.0); HEMATOCRIT 42.7 % (42.0-52.0); HEMOGLOBIN 13.7 g/dl (13.5-17.5); LYMPH # 1.5 10^3/uL (1.5-5.0); LYMPH % 14.2 % (24.0-44.0); MEAN CORPUSCULAR HEMOGLOBIN 28.9 pg (27.0-33.0); MEAN CORPUSCULAR HGB CONC 32.1 g/dl (32.0-36.5); MEAN CORPUSCULAR VOLUME 90.1 fl (80.0-96.0); MONO # 0.8 10^3/uL (0.0-0.8); MONO % 7.4 % (0.0-5.0); NEUTROPHILS % 77.2 % (36.0-66.0); PLATELET COUNT, AUTOMATED 287 10^3/uL (150-450); RED BLOOD COUNT 4.74 10^6/uL (4.30-6.10); WHITE BLOOD COUNT 10.4 10^3/uL (4.0-10.0)
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
[2020-12-21 01:05] LABS: INR 0.98; PROTHROMBIN TIME 13.2 SECONDS (12.5-14.3)
[2020-12-21 01:06] LABS: PARTIAL THROMBOPLASTIN TIME 22.2 SECONDS (24.2-38.5)
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
--- NOTE | 2020-12-21 01:26 | REPVR ---
PROCEDURE INFORMATION: Exam: CT Angiography Chest With Contrast Exam date and time: 12/21/2020 12:40 AM Age: 60 years old Clinical indication: Chest pain; Type not specified; Additional info: Self inflicted penetrating trauma to abdomen TECHNIQUE: Imaging protocol: Computed tomographic angiography of the chest with contrast. 3D rendering (Not supervised by radiologist): MIP and/or 3D reconstructed images were created by the technologist. Radiation optimization: All CT scans at this facility use at least one of these dose optimization techniques: automated exposure control; mA and/or kV adjustment per patient size (includes targeted exams where dose is matched to clinical indication); or iterative reconstruction. Contrast material: ISO; Contrast volume: 100 ml; Contrast route: INTRAVENOUS (IV); COMPARISON: CT Chest with contrast 03/04/2020 7:31 AM FINDINGS: Pulmonary arteries: The main pulmonary artery measures 33 mm. No pulmonary embolism is identified. Aorta: The ascending thoracic aorta measures 35 mm. No gross or obvious aortic dissection is identified distal to the mid arch. Artifact and image degradation precludes detailed evaluation of the ascending thoracic aorta. Lungs: Minimal bibasilar fibro-atelectatic change. Pleural spaces: Unremarkable. No pneumothorax. No pleural effusion. Heart: Unremarkable. No cardiomegaly. No pericardial effusion. Lymph nodes: Unremarkable. No enlarged lymph nodes. Liver: Metallic nail in the epigastrium at midline extending into the left hepatic lobe and is just caudal to the heart and diaphragm measuring approximately 6 mm from the pericardium and diaphragm. Bones/joints: Unremarkable. No acute fracture. Soft tissues: Subcutaneous edema and gas in the epigastrium along the nail tract and trace gas along the anterior aspect of the liver. IMPRESSION: 1. Metallic nail at midline in the epigastrium extending into the left hepatic lobe and is approximately the 6 mm caudal to the heart. 2. Otherwise negative CTA chest. No pulmonary embolism is identified. Electronically signed by: Milton May On 12/21/2020 01:26:49 AM
[2020-12-21] MEDS ORDERED: ceFAZolin SOD 2 GM in IV 1 EA IV ONE (01:30)
--- OUTSIDE RECORDS SUMMARY | 2020-12-21 01:40 | CCD ---
Author Author [facility] Organization [facility] Address Unknown Phone Unavailable Care Team Providers Care Air Twister Winder Name Role Phone ZURDO KILPATRICK MD Unavailable Unavailable ZURDO KILPATRICK MD Unavailable Unavailable ZURDO KILPATRICK MD Unavailable Unavailable ZURDO KILPATRICK MD Unavailable Unavailable ZURDO KILPATRICK MD Unavailable Unavailable ZURDO KILPATRICK MD Unavailable Unavailable ZURDO KILPATRICK MD Unavailable Unavailable ZURDO KILPATRICK MD Unavailable Unavailable ZURDO KILPATRICK MD Unavailable Unavailable ZURDO KILPATRICK MD Unavailable Unavailable ZUROD KILPATRICK MD Unavailable Unavailable ZURDO KILPATRICK MD [...] Unavailable Unavailable KILPATRICK, ZURDO MD Unavailable Unavailable KILPATIRCK, ZURDO MD Unavailable Unavailable KILPATRICK, ZURDO MD Unavailable Unavailable KILPATRICK, ZURDO MD Unavailable Unavailable KILPATRICK, ZURDO MD Unavailable Unavailable KILPATRICK, ZURDO MD Unavailable Unavailable ROCIO, K SHINE PA Unavailable Unavailable ROCIO, K SHINE PA Unavailable Unavailable ROCIO, K SHINE PA Unavailable Unavailable ROCIO, K SHINE PA Unavailable Unavailable ROCIO, K SHINE PA Unavailable Unavailable ROCIO, K SHINE PA Unavailable Unavailable ROICO, K SHINE PA Unavailable Unavailable ROCIO, K SHINE PA Unavailable Unavailable ROCIO, K SHINE PA Unavailable Unavailable ROCIO, K SHINE PA Unavailable Unavailable ROCIO, K SHINE PA Unavailable Unavailable ROCIO, K SHINE PA Unavailable Unavailable ROCIO, K SHNIE PA Unavailable Unavailable ROCIO, K SHINE PA [...] is protected by Article 27-F of the [facility] Public Health law. If you continue you may have access to information: Regarding HIV / AIDS; Provided by facilities licensed or operated by the [facility] Office of Mental Health; or Provided by the [facility] Office for People With Developmental Disabilities. If such information is present, then the following [facility] mandated warning applies: This information has [...] ) No Known Allergies No Known Allergies [facility] Family History Family Member Name Family Member Gender Family Member Status Date o f Status Description Data Source(s) Unknown Female Problem [facility] ([facility]) Encounters Encounter Providers Location Date Indications Data Source(s ) Unknown [address] [facility] [facility] [place] [address] 10/01/2020 12:00:00 AM EST eCW1 ([facility]) Unknown [address] [facility] [facility] [address] 06/01/2020 12:00:00 AM EDT eCW1 ([facility]) Outpatient Referrer: SHINE HOLDEN 03/28/2020 09:56:00 AM EDT [facility] Outpatient Attender: ZURDO KILPATRICK MDConsultant: ZURDO Dutta MD 11/04/2019 08:07:00 AM EST - 11/04/2019 08:07:00 AM EST [facility] Outpatient Attender: ZURDO KILPATRICK MD Family Practice 11/04/2019 0 7:00:00 AM EST [facility] ([facility]) Medications Medication Brand Name Start [...] TWO TIMES A DAY SO LD: 08/27/2020 [facility] 33 gauge 11/05/2019 12:00:00 AM [...] MG/Dose) 11/04/2019 12:00:00 AM EST active MEDENT ([facility]) Ergocalciferol 45841 UNT Oral Capsule Vitamin D (Ergocalcife rol) 11/04/2019 12:00:00 AM EST ORAL active M EDENT ([facility]) 75 mg 10/27/2019 12:00:00 AM EST capsule,extended [...] type / Coverage type Policy ID Covered republican ID Covered republican's relationship to varner Policy Varner Plan Information [facility] [id number] SP [id number] [facility] [id number] SP [id number] [facility](MCAID) O [id number] S [id number] [facility] COMMUNTY PLAN [id number] 18 [id number] Private Pay Commercial [id number] Self [id number] [employer] AMERICHOICE XIX O [id number] 18 [id number] [facility] [id number] 18 [id number] [facility] Community Plan Medicaid [id number] Self [id number] [facility] Community Plan Medicaid [id number] Self [id number] [facility] Community Plan Medicaid [id number] Self [id number] [facility] Community Plan Medicaid Self [facility](MCAID) O [id number] S [id number] UN AMERICHOICE XIX O [id number] 18 [id number] SECURE [employer]ORIZ[employer] S [id number] S [id number] [employer] P [id number] S [id number] [facility]AN [facility] [id number] SP [id number] MEDICAID [id number] SP [id number] Problems, Conditions, and Diagnoses Code Display Name Description Problem Type Effective Dates Data Source(s) G43.836 [id number] Migraine with aura a nd without status migrainosus, not intractable Problem 05/14/2020 12:00:00 AM EDT eCW1 ([facility]) I25.10 [id number] Coronary artery dise ase involving [place] coronary artery of [place] heart without angina pectoris Problem 05/14/2020 12:00:00 AM EDT eCW1 ([facility]) E11.9 [id number] Type 2 diabetes adriane itus without complication, without long-term current use of insulin Problem 05/14/2020 12:00:00 AM EDT eCW1 ([facility]) F17.218 [id number] Cigarette nicotine d ependence with other nicotine- induced disorder Problem 05/14/2020 12:00:00 AM EDT eCW1 ([facility]) E78.2 [id number] Mixed hyperlipidemia Problem 05/14/2020 12:0 0:00 AM EDT eCW1 ([facility]) I10 [id number] Essential hypertension Problem 05/14/2020 12 :00:00 AM EDT eCW1 ([facility]) F41.8 [id number] Anxiety with depression Problem 05/14/2020 1 2:00:00 AM EDT eCW1 ([facility]) F411 Generalized anxiety disorder Generalized anxiety disor jasper Diagnosis 11/04/2019 08:07:00 AM [facility] I10 Essential (primary) hypertension Essential (primary) h ypertension Diagnosis 11/04/2019 08:07:00 AM [facility] E785 Hyperlipidemia, unspecified Hyperlipidemia, unspecifie d Diagnosis 11/04/2019 08:07:00 AM [facility] Z9111 Patient's noncompliance with dietary reg imen Patient's noncompliance with dietary regimen Diagnosis 11/04/2019 08:07:00 AM [facility] Z9119 Patient's noncompliance with other medic al treatment and regimen Patient's noncompliance with other medical treatment and regimen Diagnosis 11/04/2019 08:07:00 AM [facility] E559 Vitamin D deficiency, unspecified Vitamin D defi ciency, unspecified Diagnosis 11/04/2019 08:07:00 AM [facility] E119 Type 2 diabetes mellitus without complic ations Type 2 diabetes mellitus without complications Diagnosis 11/04/2019 08:07:00 AM [facility] Surgeries/Procedures Procedure Description Date Indications Data Source(s) Brief Emotional/Behav Assessment W/ Scoring Doc Per Standard Inst 11/04/2019 12:00:00 AM EST [facility] ([facility] Results ID Date Data Source [id number] 11/04/2019 08:48:00 AM EST MED[facility] ([facility]) Name Value Range Interpretation Code Description Data Tyesha rce(s) Supporting Document(s) Thyroxine (T4) free [Mass/volume] in Serum or Plasma 0.94 ng/dL 0.93- 1.70 MEDENT ([facility]) FASTING~.~.~E119 Calcidiol [Mass/volume] in Serum or Plasma 23 ng/mL MED[facility] ([facility]) FASTING~.~.~E119 Thyrotropin [Units/volume] in Serum or Plasma 3.22 uIU/mL 0.47-5.01 [facility] ([facility]) FASTING~.~.~E119 Natriuretic peptide.B prohormone N-Terminal [Mass/volu me] in Serum or Plasma 17 pg/mL 0-125 MED[facility] ([facility]) FASTING~.~.~E119 ID Date Data Source [id number] 11/04/2019 08:48:00 AM EST MED[facility] ([facility]) Name Value Range Interpretation Code Description Data Tyesha rce(s) Supporting Document(s) Urinalysis (SEE NOTE) MED[facility] ([facility]) FASTING~.~.~E119 Source R MEDENT ([facility]) FASTING~.~.~E119 Clarity clear MED[facility] ([facility]) FASTING~.~.~E119 Color yellow MED[facility] ([facility]) FASTING~.~.~E119 Spec [place] 1.025 1.001-1.030 MED[facility] ([facility]) FASTING~.~.~E119 Glucose 250 Abnormal (applies to non-numeric res ults) MEDENT ([facility]) FASTING~.~.~E119 pH 5 5-9 MED[facility] ([facility]) FASTING~.~.~E119 Bilirubin NEG MED[facility] ([facility]) FASTING~.~.~E119 Ketone NEG MED[facility] ([facility]) FASTING~.~.~E119 Protein 15 [facility] ([facility]) FASTING~.~.~E119 Blood NEG [facility] ([facility]) FASTING~.~.~E119 Nitrite NEG MED[facility] ([facility]) FASTING~.~.~E119 Leuk Est NEG [facility] ([facility]) FASTING~.~.~E119 Microscopic See Below MED[facility] ([facility]) FASTING~.~.~E119 Urobilinogen NOR MED[facility] ([facility]) FASTING~.~.~E119 Epithelial FEW MEDENT ([facility]) FASTING~.~.~E119 ID Date Data Source [id number] 11/04/2019 08:48:00 AM EST MEDENT ([facility]) Name Value Range Interpretation Code Description Data Tyesha rce(s) Supporting Document(s) Cve Panel (SEE NOTE) MEDENT ([facility]) FASTING~.~.~E119 Cholesterol 258 mg/dL 131-200 Above high normal [facility]) FASTING~.~.~E119 Triglycerides 127 mg/dL 35-160 MED[facility] ([facility]) FASTING~.~.~E119 HDL 49 mg/dL 29-86 MED[facility] ([facility]) FASTING~.~.~E119 LDL 199 mg/dL 65-175 Above high normal [facility] ([facility]) FASTING~.~.~E119 Risk Factor 5.3 3.4-4.9 Above high normal [facility] ([facility]) FASTING~.~.~E119 LDL/HDL 4.06 1.00-3.55 Above high normal [facility] ([facility]) FASTING~.~.~E119 ID Date Data Source [id number] 11/04/2019 08:48:00 AM EST MED[facility] ([facility]) Name Value Range Interpretation Code Description Data Tyesha rce(s) Supporting Document(s) Comprehensive Metabo (SEE NOTE) MED[facility] ( [facility]) FASTING~.~.~E119 Sodium 139 meq/L 134-153 MED[facility] ([facility]) FASTING~.~.~E119 Chloride 101 meq/L 98-107 [facility] ([facility]) FASTING~.~.~E119 Potassium 4.6 meq/L 3.6-5.0 [facility] ([facility]) FASTING~.~.~E119 Co2 24 meq/L 22-30 MED[facility] ([facility]) FASTING~.~.~E119 Glucose 206 mg/dL 65-110 Above high normal MED[facility] ([facility]) FASTING~.~.~E119 BUN 20 mg/dL 7-21 [facility] ([facility]) FASTING~.~.~E119 Creatinine 0.8 mg/dL 0.7-1.5 MED[facility] ([facility]) FASTING~.~.~E119 BUN/Creat 25 8-27 [facility] ([facility]) FASTING~.~.~E119 Albumin 4.4 g/dL 3.9-5.0 [facility] ([facility]) FASTING~.~.~E119 Total Protein 7.6 g/dL 6.3-8.2 MED[facility] ([facility]) FASTING~.~.~E119 Globulin 3.2 GM/DL 2.4-3.2 [facility] ([facility]) FASTING~.~.~E119 A/G Ratio 1.4 0.8-2.0 [facility] ([facility]) FASTING~.~.~E119 Calcium 9.7 mg/dL 8.4-10.2 [facility] ([facility]) FASTING~.~.~E119 Alkaline Phos 91 U/L 38-126 [facility] ([facility]) FASTING~.~.~E119 Sgot/Ast 14 U/L 5-40 MED[facility] ([facility]) FASTING~.~.~E119 Total Bili <0.7 mg/dL 0.2-1.3 [facility] ([facility]) FASTING~.~.~E119 Age 59 yrs MED[facility] ([facility]) FASTING~.~.~E119 SGPT/Alt 15 U/L 7-56 [facility] ([facility]) FASTING~.~.~E119 Anion Gap 14.0 mmol/L 8.0-16.0 [facility] ([facility]) FASTING~.~.~E119 Non-Aa GFR >60 mL/min MED[facility] ([facility]) FASTING~.~.~E119 Afr Amer GFR >60 mL/min MED[facility] ([facility]) FASTING~.~.~E119 ID Date Data Source [id number] 11/04/2019 08:48:00 AM EST MEDENT ([facility]) Name Value Range Interpretation Code Description Data Tyesha rce(s) Supporting Document(s) Hemoglobin A1c/Hemoglobin.total in Blood 8.0 % 4.4-6.1 Above high normal MED[facility] ([facility]) FASTING~.~.~E119 ID Date Data Source [id number] 11/04/2019 08:48:00 AM EST MEDENT ([facility]) Name Value Range Interpretation Code Description Data Tyesha rce(s) Supporting Document(s) CBC W/Automated Diff (SEE NOTE) MED[facility] ( [facility]) FASTING~.~.~E119 Hemoglobin 16.0 g/dL 14.0-16.0 MED[facility] ([facility]) FASTING~.~.~E119 RBC 5.31 10^6/uL 4.50-6.30 [facility] ([facility]) FASTING~.~.~E119 WBC 6.6 10^3/uL 4.2-11.0 [facility] ([facility]) FASTING~.~.~E119 Hematocrit 48.2 % 41.0-51.0 MED[facility] ([facility]) FASTING~.~.~E119 MCH 30.1 pg 27.0-34.0 MED[facility] ([facility]) FASTING~.~.~E119 MCV 90.8 fL 80.0-94.0 [facility] ([facility]) FASTING~.~.~E119 RDW 12.6 % 11.5-14.8 [facility] ([facility]) FASTING~.~.~E119 Platelets 309 10^3/uL 150-450 MED[facility] ([facility]) FASTING~.~.~E119 MCHC 33.2 g/dL 31.0-36.0 [facility] ([facility]) FASTING~.~.~E119 MPV 9.4 fL 7.4-10.4 [facility] ([facility]) FASTING~.~.~E119 Neut 59.1 % 37.0-80.0 [facility] ([facility]) FASTING~.~.~E119 [place] 6.6 % 3.0-8.0 [facility] ([facility]) FASTING~.~.~E119 Eos 1.5 % 0.0-7.0 [facility] ([facility]) FASTING~.~.~E119 Lymph 31.7 % 25.0-40.0 [facility] ([facility]) FASTING~.~.~E119 %Ig 0.2 % 0.0-0.0 Above high normal MED[facility] ([facility]) FASTING~.~.~E119 Baso 0.9 % 0.0-2.0 [facility] ([facility]) FASTING~.~.~E119 %NRBC 0.0 % 0.0-0.0 [facility] ([facility]) FASTING~.~.~E119 #Neut 3.91 10^3/uL 2.00-6.90 MED[facility] ([facility]) FASTING~.~.~E119 #Lymph 2.10 10^3/uL 0.60-3.40 MED[facility] ([facility]) FASTING~.~.~E119 #[place] 0.44 10^3/uL 0.00-0.90 MED[facility] ([facility]) FASTING~.~.~E119 #Ig 0.01 10^3/uL 0.00-0.10 [facility] ([facility]) FASTING~.~.~E119 #Baso 0.06 10^3/uL 0.00-0.20 [facility] ([facility]) FASTING~.~.~E119 #Eos 0.10 10^3/uL 0.00-0.70 [facility] ([facility]) FASTING~.~.~E119 #NRBC 0.00 10^3/uL 0.00-0.00 MEDENT ([facility]) FASTING~.~.~E119 RBC Morph NOT INDICATED MEDENT ([facility]) FASTING~.~.~E119 Manual Diff NOT INDICATED MEDENT ([facility]) FASTING~.~.~E119 ID Date Data Source [id number] 11/15/2019 03:41:00 PM [facility] Name Value Range Interpretation Code Description Data Tyesha rce(s) Supporting Document(s) Amphetamines [Presence] in Urine by Screen method Negative ng/mL Cu pixv=4219 [facility] Amphetamine test includes Amphetamine an d Methamphetamine. Barbiturates [Presence] in Urine by Screen method Negative ng/mL Cuto pp=307 [facility] Benzodiazepines [Presence] in Urine Negative ng/mL Zaoegp=523 [facility] See Final Results Benzoylecgonine [Presence] in Urine Negative ng/mL Muxjna=532 [facility] Opiates [Presence] in Urine Negative ng/mL Gtbtae=849 [facility] Opiate test includes Codeine and Morphin e only. Phencyclidine [Presence] in Urine Negative ng/mL Cutoff=25 [facility] Positive Carboxy tetrahydrocannabinol [Mass/volume] in Urine 90 ng/mL Cutoff =15 [facility] ID Date Data Source [id number] 11/07/2019 08:06:00 AM [facility] Name Value Range Interpretation Code Description Data Tyesha rce(s) Supporting Document(s) Prostate specific Ag [Mass/volume] in Serum or Plasma 0.7 ng/mL 0.0- 4.0 [facility] Emilia ECLIA methodology.According to the [employer] [employer], Serum PSA shoulddecrease and remain at undetectable levels after radicalprostatectomy. The AUA defines biochemical recurrence as an initialPSA value 0.2 ng/mL or greater followed by a subsequent confirmatoryPSA value 0.2 ng/mL or greater.Values obtained with different assay methods or kits cannot be usedinterchangeably. Results cannot be interpreted as absolute evidenceof the presence or absence of malignant disease. Reflex Criteria COMMENT [facility] The percent free PSA is performed on a r eflex basis only when thetotal PSA is between 4.0 and 10.0 ng/mL. ID Date Data Source [id number] 11/04/2019 03:01:00 PM [facility] Name Value Range Interpretation Code Description Data Tyesha rce(s) Supporting Document(s) Hemoglobin A1c/Hemoglobin.total in Blood 8.0 % 4.4 - 6.1 H [facility] {A1]{HB] ID Date Data Source [id number] 11/04/2019 02:07:00 PM [facility] Name Value Range Interpretation Code Description Data Tyesha rce(s) Supporting Document(s) BNP 17 PG/ML 0 - 125 [facility] ID Date Data Source [id number] 11/04/2019 02:07:00 PM [facility] Value Range Interpretation Code Description Data Tyesha rce(s) Supporting Document(s) Calcidiol [Moles/volume] in Serum or Plasma 23 NG/ML [facility] VITAMIN-D(2 5HYDROXY) Deficiency: <=20 ng/ml Insufficiency: 21-29 ng/ml Preferred level: => 30 ng/ml ID Date Data Source [id number] 11/04/2019 02:07:00 PM [facility] Value Range Interpretation Code Description Data Tyesha rce(s) Supporting Document(s) Thyroxine (T4) free index in Serum or Plasma by calculation 0.94 NG/DL 0.93 - 1.70 [facility] ID Date Data Source [id number] 11/04/2019 02:07:00 PM [facility] Name Value Range Interpretation Code Description Data Tyesha rce(s) Supporting Document(s) Thyrotropin [Units/volume] in Serum or Plasma by Detec tion limit <= 0.05 mIU/L 3.22 uIU/mL 0.47 - 5.01 [facility] ID Date Data Source [id number] 11/04/2019 01:59:00 PM [facility] Value Range Interpretation Code Description Data Tyesha rce(s) Supporting Document(s) [facility] Cholesterol [Mass/volume] in Serum or Plasma 258 MG/DL 131 - 200 H [facility] Deprecated Triglyceride [Mass/volume] in Serum or Plasma 127 MG/DL 3 5 - 160 [facility] HDL 49 MG/DL 29 - 86 [facility] Cholesterol in LDL/Cholesterol in HDL [Mass Ratio] in Serum or Plasma 199 mg/dL 65 - 175 H [facility] Cholesterol.total/Cholesterol in HDL [Mass Ratio] in Serum o r Plasma 5.3 3.4 - 4.9 H [facility] LDL/HDL 4.06 1.00 - 3.55 H [facility] CVE RISK CHOL/HDL LDL/HDLMEN: 1/2 AVERAGE 3.43 1.00 AVERAGE 4.97 3.55 2X AVERAGE 9.55 6.25 3X AVERAGE 23.99 7.99WOMEN: 1/2 AVERAGE 3.27 1.47 AVERAGE 4.44 3.22 2X AVERAGE 7.05 5.03 3X AVERAGE 11.04 6.14 ID Date Data Source [id number] 11/04/2019 01:59:00 PM EST [facility] Name Value Range Interpretation Code Description Data Tyehsa rce(s) Supporting Document(s) COMPREHENSIVE METABOLIC PANEL [facility] COMPREHENSIVE METABOLIC PANEL Sodium [Moles/volume] in Serum or Plasma 139 mEq/L 134 - 153 [facility] Potassium [Moles/volume] in Serum or Plasma 4.6 mEq/L 3.6 - 5.0 [facility] Chloride [Moles/volume] in Serum or Plasma 101 mEq/L 98 - 107 [facility] Carbon dioxide, total [Moles/volume] in Serum or Plasma 24 MEQ/L 22 - 30 [facility] Glucose [Mass/volume] in Serum or Plasma 206 MG/DL 65 - 110 H [facility] BUN 20 MG/DL 7 - 21 [facility] Creatinine [Mass/volume] in Serum or Plasma 0.8 MG/DL 0.7 - 1.5 [facility] BUN/CREAT 25 8 - 27 [facility] Protein [Mass/volume] in Serum or Plasma 7.6 G/DL 6.3 - 8.2 [facility] Albumin [Mass/volume] in Serum or Plasma 4.4 G/DL 3.9 - 5.0 [facility] Globulin [Mass/volume] in Serum by calculation 3.2 GM/DL 2.4 - 3.2 [facility] A/G RATIO 1.4 0.8 - 2.0 [facility] Calcium [Mass/volume] in Serum or Plasma 9.7 MG/DL 8.4 - 10.2 [facility] Bilirubin.total [Mass/volume] in Serum or Plasma <0.7 MG/DL 0.2 - 1.3 [facility] Alkaline phosphatase [Enzymatic activity/volume] in Serum or Plasma 91 U/L 38 - 126 [facility] Aspartate aminotransferase [Enzymatic activity/volume] in Serum or Plasma 14 U/L 5 - 40 [facility] Alanine aminotransferase [Enzymatic activity/volume] in Seru m or Plasma 15 U/L 7 - 56 [facility] Anion gap 3 in Serum or Plasma 14.0 mmol/L 8.0 - 16.0 [facility] AGE 59 yrs [facility] NON-AA GFR >60 mL/min [facility] AFR AMER GFR >60 mL/min [facility] Male GFR In terprentation [...] >32 mL/min Normal ID Date Data Source [id number] 11/04/2019 01:34:00 PM EST [facility] Name Value Range Interpretation Code Description Data Tyesha rce(s) Supporting Document(s) URINALYSIS [facility] URINALYSIS SOURCE [facility] COLOR yellow NORMAL: Yellow [facility] CLARITY clear NORMAL: Clear [facility] Specific gravity of Urine by Test strip 1.025 1.001 - 1.030 [facility] pH 5 5 - 9 [facility] Glucose [Mass/volume] in Urine by Test strip 250 NORMAL: Negat mireille A [facility] Bilirubin.total [Presence] in Urine by Test strip NEG NORMAL: Negative [facility] Ketones [Presence] in Urine by Test strip NEG NORMAL: Negative [facility] Protein [Mass/volume] in Urine by Test strip 15 NORMAL: Negat mireille [facility] Nitrite [Presence] in Urine by Test strip NEG NORMAL: Negative [facility] BLOOD NEG NORMAL: Negative [facility] Leukocyte esterase [Presence] in Urine by Test strip NEG NEREIDA L: Negative [facility] Urobilinogen [Mass/volume] in Urine by Test strip NOR less sunny n 1.0 mg/dL [facility] MICROSCOPIC See Below [facility] EPITHELIAL FEW NORMAL: NONE SEEN [facility] ID Date Data Source [id number] 11/04/2019 01:29:00 PM EST [facility] Name Value Range Interpretation Code Description Data Tyesha rce(s) Supporting Document(s) CBC W/AUTOMATED DIFF [facility] COMPLETE BLOOD COUNT Leukocytes [#/volume] in Blood by Automated count 6.6 10^3/uL 4.2 - 1 1.0 [facility] Erythrocytes [#/volume] in Blood by Automated count 5.31 10^6/uL 4. 50 - 6.30 [facility] Hemoglobin [Mass/volume] in Blood 16.0 g/dL 14.0 - 16.0 [facility] Hematocrit [Volume Fraction] of Blood by Automated count 48.2 % 4 1.0 - 51.0 [facility] Erythrocyte mean corpuscular volume [Entitic volume] by Auto mated count 90.8 fL 80.0 - 94.0 [facility] Erythrocyte mean corpuscular hemoglobin [Entitic mass] by Automated count 30.1 pg 27.0 - 34.0 [facility] Erythrocyte mean corpuscular hemoglobin concentration [Mass/volume] by Automated count 33.2 g/dL 31.0 - 36.0 [facility] Erythrocyte distribution width [Ratio] by Automated count 12.6 % 11.5 - 14.8 [facility] Platelets [#/volume] in Blood by Automated count 309 10^3/uL 150 - 45 0 [facility] Platelet mean volume [Entitic volume] in Blood by Automated count 9.4 fL 7.4 - 10.4 [facility] Neutrophils/100 leukocytes in Blood by Automated count 59.1 % 37. 0 - 80.0 [facility] Lymphocytes/100 leukocytes in Blood by Manual count 31.7 % 25.0 - 40.0 [facility] Monocytes/100 leukocytes in Blood by Automated count 6.6 % 3.0 - 8.0 [facility] Eosinophils/100 leukocytes in Blood by Automated count 1.5 % 0.0 - 7.0 [facility] Basophils/100 leukocytes in Blood by Automated count 0.9 % 0.0 - 2.0 [facility] %IG 0.2 % 0.0 - 0.0 [facility] %NRBC 0.0 % 0.0 - 0.0 [facility] al Neutrophils [#/volume] in Blood by Automated count 3.91 10^3/uL 2.00 - 6.90 [facility] Lymphocytes [#/volume] in Blood by Automated count 2.10 10^3/uL 0.60 - 3.40 [facility] Monocytes [#/volume] in Blood by Automated count 0.44 10^3/uL 0.00 - 0.90 [facility] Eosinophils [#/volume] in Blood by Automated count 0.10 10^3/uL 0.00 - 0.70 [facility] Basophils [#/volume] in Blood by Automated count 0.06 10^3/uL 0.00 - 0.20 [facility] #IG 0.01 10^3/uL 0.00 - 0.10 [facility] #NRBC 0.00 10^3/uL 0.00 - 0.00 [facility] MANUAL DIFF NOT INDICATED [facility] RBC MORPH NOT INDICATED [facility] Procedure Social History Code Duration Value Status Description Data Source(s ) Smoking 05/14/2020 12:00:00 AM EDT Current Smoker completed Curre nt Smoker eCW1 ([facility]) Smoking 05/14/2020 12:00:00 AM EDT Current Smoker completed Curre nt Smoker eCW1 ([facility]) Vital Signs ID Date Data Source UNK Name Value Range Interpretation Code Description Data Source(s) Body surface area 2.24 m2 2.24 m2 [facility] ([facility]) Body mass index (BMI) [Ratio] 28.9 kg/m2 28.9 k g/m2 [facility] ([facility]) Body height 73 [in_i] 73 [in_i] [facility] ([facility]) 6'1" Body weight 99.338 kg 99.338 kg [facility] ([facility]) Body weight 219.00 [lb_av] 219.00 [lb_av] [facility] ([facility]) Oxygen saturation in Arterial blood by Pulse oximetry 97 % 97 % [facility] ([facility]) Respiratory rate 16 /min 16 /min [facility] ( [facility]) Body temperature 97.8 [degF] 97.8 [degF] [facility] ([facility]) Heart rate 57 /min 57 /min [facility] ([facility]) Diastolic blood pressure 62 mm[Hg] 62 mm[Hg] [facility] ([facility]) Systolic blood pressure 118 mm[Hg] 118 mm[Hg] [facility]
--- OUTSIDE RECORDS SUMMARY | 2020-12-21 01:42 | CCD ---
Author Author [facility] Organization [facility] Address Unknown Phone Unavailable Care Team Providers Care It Software Developer Name Role Phone ZURDO KILPATRICK MD Unavailable [...] is protected by Article 27-F of the [facility] Public Health law. If you continue you may have access to information: Regarding HIV / AIDS; Provided by facilities licensed or operated by the [facility] Office of Mental Health; or Provided by the [facility] Office for People With Developmental Disabilities. If such information is present, then the following [facility] mandated warning applies: This information has [...] law may result in a fine or intermediate sentence or both. A general authorization for the release of medical or other information is NOT sufficient authorization for further disc losure. Allergies and Adverse Reactions Type Description Substance Reaction Status Data Source(s ) No Known Allergies No Known Allergies [facility] Family History Family Member Name Family Member Gender Family Member Status Date o f Status Description Data Source(s) Unknown Female Problem MEDENT ([facility]) Encounters Encounter Providers Location Date Indications Data Source(s ) [place] [address] [address] 10/01/2020 12:00:00 AM EST eCW1 ([facility]) [place] [address] [address] 06/01/2020 12:00:00 AM EDT eCW1 ([facility]) Outpatient Referrer: SHINE HOLDEN 03/28/2020 09:56:00 AM EDT [facility] Outpatient Attender: ZURDO KILPATRICK MDConsultant: ZURDO Dutta MD 11/04/2019 08:07:00 AM EST - 11/04/2019 08:07:00 AM EST [facility] Outpatient Attender: ZURDO KILPATRICK MD Family Practice 11/04/2019 0 7:00:00 AM EST [facility] ([facility]) Medications Medication Brand Name Start Date [...] TEST TWO TIMES A DAY SOLD: 04/14/2020 [facility] 10 mg 11/05/2019 12:00:00 AM EST [...] MG/Dose) 11/04/2019 12:00:00 AM EST active MEDENT ([facility]) Ergocalciferol 02327 UNT Oral Capsule Vitamin D (Ergocalcife rol) 11/04/2019 12:00:00 AM EST ORAL active M EDENT ([facility]) 75 mg 10/27/2019 12:00:00 AM EST capsule,extended [...] type / Coverage type Policy ID Covered constitution party ID Covered constitution party's relationship to varner Policy Varner Plan Information [facility] [id number] SP [id number] [facility] [id number] SP [id number] [facility](M[facility]) O [id number] S [id number] [facility] COMM[facility]TY PLAN [id number] Private Pay Commercial [id number] Self [id number] UNHC AMERICHOICE XIX O [id number] 18 [id number] [facility] [id number] 18 [id number] [facility] Community Plan Medicaid [id number] Self [id number] [facility] Community Plan Medicaid [id number] Self [id number] [facility] Community Plan Medicaid [id number] Self [id number] [facility] Community Plan Medicaid Self [facility](MCAID) O [id number] S [id number] UN AMERICHOICE XIX O [id number] 18 [id number] SECURE [employer]IZ[employer] S [id number] S [id number] [employer] P [id number] S [id number] [facility]AN [facility] [id number] SP [id number] MEDICAID [id number] SP [id number] Problems, Conditions, and Diagnoses Code Display Name Description Problem Type Effective Dates Data Source(s) G43.171 [id number] Migraine with aura a nd without status migrainosus, not intractable Problem 05/14/2020 12:00:00 AM EDT eCW1 ([facility]) I25.10 [id number] Coronary artery dise ase involving [place] coronary artery of [place] heart without angina pectoris Problem 05/14/2020 12:00:00 AM EDT eCW1 ([facility]) E11.9 [id number] Type 2 diabetes adriane itus without complication, without long-term current use of insulin Problem 05/14/2020 12:00:00 AM EDT eCW1 ([facility]) F17.218 [id number] Cigarette nicotine d ependence with other nicotine- induced disorder Problem 05/14/2020 12:00:00 AM EDT eCW1 ([facility]) E78.2 [id number] Mixed hyperlipidemia Problem 05/14/2020 12:0 0:00 AM EDT eCW1 ([facility]) I10 [id number] Essential hypertension Problem 05/14/2020 12 :00:00 AM EDT eCW1 ([facility]) F41.8 [id number] Anxiety with depression Problem 05/14/2020 1 2:00:00 AM EDT eCW1 ([facility]) F411 Generalized anxiety disorder Generalized anxiety disor jasper Diagnosis 11/04/2019 08:07:00 AM [facility] I10 Essential (primary) hypertension Essential (primary) h ypertension Diagnosis 11/04/2019 08:07:00 AM [facility] E785 Hyperlipidemia, unspecified Hyperlipidemia, unspecifie d Diagnosis 11/04/2019 08:07:00 AM [facility] Z9111 Patient's noncompliance with dietary reg imen Patient's noncompliance with dietary regimen Diagnosis 11/04/2019 08:07:00 AM [facility] Z9119 Patient's noncompliance with other medic al treatment and regimen Patient's noncompliance with other medical treatment and regimen Diagnosis 11/04/2019 08:07:00 AM [facility] E559 Vitamin D deficiency, unspecified Vitamin D defi ciency, unspecified Diagnosis 11/04/2019 08:07:00 AM [facility] E119 Type 2 diabetes mellitus without complic ations Type 2 diabetes mellitus without complications Diagnosis 11/04/2019 08:07:00 AM [facility] Surgeries/Procedures Procedure Description Date Indications Data Source(s) Brief Emotional/Behav Assessment W/ Scoring Doc Per Standard Inst 11/04/2019 12:00:00 AM EST MED[facility] ([facility]) Results ID Date Data Source [id number] 11/04/2019 08:48:00 AM EST MEDENT ([facility]) Name Value Range Interpretation Code Description Data Tyesha rce(s) Supporting Document(s) Thyroxine (T4) free [Mass/volume] in Serum or Plasma 0.94 ng/dL 0.93- 1.70 MEDENT ([facility]) FASTING~.~.~E119 Calcidiol [Mass/volume] in Serum or Plasma 23 ng/mL MED[facility] ([facility]) FASTING~.~.~E119 Thyrotropin [Units/volume] in Serum or Plasma 3.22 uIU/mL 0.47-5.01 [facility] ([facility]) FASTING~.~.~E119 Natriuretic peptide.B prohormone N-Terminal [Mass/volu me] in Serum or Plasma 17 pg/mL 0-125 MEDENT ([facility]) FASTING~.~.~E119 ID Date Data Source [id number] 11/04/2019 08:48:00 AM EST MEDENT ([facility]) Name Value Range Interpretation Code Description Data Tyesha rce(s) Supporting Document(s) Urinalysis (SEE NOTE) MEDENT ([facility]) FASTING~.~.~E119 Source R MEDENT ([facility]) FASTING~.~.~E119 Clarity clear MEDENT ([facility]) FASTING~.~.~E119 Color yellow MED[facility] ([facility]) FASTING~.~.~E119 Spec [place] 1.025 1.001-1.030 MEDENT ([facility]) FASTING~.~.~E119 Glucose 250 Abnormal (applies to non-numeric res ults) MEDENT ([facility]) FASTING~.~.~E119 pH 5 5-9 MED[facility] ([facility]) FASTING~.~.~E119 Bilirubin NEG MED[facility] ([facility]) FASTING~.~.~E119 Ketone NEG MED[facility] ([facility]) FASTING~.~.~E119 Protein 15 MED[facility] ([facility]) FASTING~.~.~E119 Blood NEG MED[facility] ([facility]) FASTING~.~.~E119 Nitrite NEG MED[facility] ([facility]) FASTING~.~.~E119 Leuk Est NEG MED[facility] ([facility]) FASTING~.~.~E119 Microscopic See Below MED[facility] ([facility]) FASTING~.~.~E119 Urobilinogen NOR MEDENT ([facility]) FASTING~.~.~E119 Epithelial FEW MEDENT ([facility]) FASTING~.~.~E119 ID Date Data Source [id number] 11/04/2019 08:48:00 AM EST MEDENT ([facility]) Name Value Range Interpretation Code Description Data Tyesha rce(s) Supporting Document(s) Cve Panel (SEE NOTE) MEDENT ([facility]) FASTING~.~.~E119 Cholesterol 258 mg/dL 131-200 Above high normal [facility] ([facility]) FASTING~.~.~E119 Triglycerides 127 mg/dL 35-160 MED[facility] ([facility]) FASTING~.~.~E119 HDL 49 mg/dL 29-86 MED[facility] ([facility]) FASTING~.~.~E119 LDL 199 mg/dL 65-175 Above high normal MED[facility] ([facility]) FASTING~.~.~E119 Risk Factor 5.3 3.4-4.9 Above high normal [facility] ([facility]) FASTING~.~.~E119 LDL/HDL 4.06 1.00-3.55 Above high normal MED[facility] ([facility]) FASTING~.~.~E119 ID Date Data Source [id number] 11/04/2019 08:48:00 AM EST MEDENT ([facility]) Name Value Range Interpretation Code Description Data Tyesha rce(s) Supporting Document(s) Comprehensive Metabo (SEE NOTE) MEDENT ( [facility]) FASTING~.~.~E119 Sodium 139 meq/L 134-153 MED[facility] ([facility]) FASTING~.~.~E119 Chloride 101 meq/L 98-107 MED[facility] ([facility]) FASTING~.~.~E119 Potassium 4.6 meq/L 3.6-5.0 MED[facility] ([facility]) FASTING~.~.~E119 Co2 24 meq/L 22-30 MED[facility] ([facility]) FASTING~.~.~E119 Glucose 206 mg/dL 65-110 Above high normal MEDENT ([facility]) FASTING~.~.~E119 BUN 20 mg/dL 7-21 MED[facility] ([facility]) FASTING~.~.~E119 Creatinine 0.8 mg/dL 0.7-1.5 MEDENT ([facility]) FASTING~.~.~E119 BUN/Creat 25 8-27 [facility] ([facility]) FASTING~.~.~E119 Albumin 4.4 g/dL 3.9-5.0 [facility] ([facility]) FASTING~.~.~E119 Total Protein 7.6 g/dL 6.3-8.2 MED[facility] ([facility]) FASTING~.~.~E119 Globulin 3.2 GM/DL 2.4-3.2 [facility] ([facility]) FASTING~.~.~E119 A/G Ratio 1.4 0.8-2.0 [facility] ([facility]) FASTING~.~.~E119 Calcium 9.7 mg/dL 8.4-10.2 [facility] ([facility]) FASTING~.~.~E119 Alkaline Phos 91 U/L 38-126 MED[facility] ([facility]) FASTING~.~.~E119 Sgot/Ast 14 U/L 5-40 MED[facility] ([facility]) FASTING~.~.~E119 Total Bili <0.7 mg/dL 0.2-1.3 [facility] ([facility]) FASTING~.~.~E119 Age 59 yrs MEDENT ([facility]) FASTING~.~.~E119 SGPT/Alt 15 U/L 7-56 [facility] ([facility]) FASTING~.~.~E119 Anion Gap 14.0 mmol/L 8.0-16.0 MED[facility] ([facility]) FASTING~.~.~E119 Non-Aa GFR >60 mL/min MED[facility] ([facility]) FASTING~.~.~E119 Afr Amer GFR >60 mL/min MED[facility] ([facility]) FASTING~.~.~E119 ID Date Data Source [id number] 11/04/2019 08:48:00 AM EST MEDENT ([facility]) Name Value Range Interpretation Code Description Data Tyesha rce(s) Supporting Document(s) Hemoglobin A1c/Hemoglobin.total in Blood 8.0 % 4.4-6.1 Above high normal MEDENT ([facility]) FASTING~.~.~E119 ID Date Data Source [id number] 11/04/2019 08:48:00 AM EST MEDENT ([facility]) Name Value Range Interpretation Code Description Data Tyesha rce(s) Supporting Document(s) CBC W/Automated Diff (SEE NOTE) MEDENT ( [facility]) FASTING~.~.~E119 Hemoglobin 16.0 g/dL 14.0-16.0 MEDENT ([facility]) FASTING~.~.~E119 RBC 5.31 10^6/uL 4.50-6.30 MED[facility] ([facility]) FASTING~.~.~E119 WBC 6.6 10^3/uL 4.2-11.0 [facility] ([facility]) FASTING~.~.~E119 Hematocrit 48.2 % 41.0-51.0 MEDENT ([facility]) FASTING~.~.~E119 MCH 30.1 pg 27.0-34.0 MED[facility] ([facility]) FASTING~.~.~E119 MCV 90.8 fL 80.0-94.0 [facility] ([facility]) FASTING~.~.~E119 RDW 12.6 % 11.5-14.8 [facility] ([facility]) FASTING~.~.~E119 Platelets 309 10^3/uL 150-450 MED[facility] ([facility]) FASTING~.~.~E119 MCHC 33.2 g/dL 31.0-36.0 [facility] ([facility]) FASTING~.~.~E119 MPV 9.4 fL 7.4-10.4 [facility] ([facility]) FASTING~.~.~E119 Neut 59.1 % 37.0-80.0 [facility] ([facility]) FASTING~.~.~E119 [place] 6.6 % 3.0-8.0 [facility] ([facility]) FASTING~.~.~E119 Eos 1.5 % 0.0-7.0 [facility] ([facility]) FASTING~.~.~E119 Lymph 31.7 % 25.0-40.0 [facility] ([facility]) FASTING~.~.~E119 %Ig 0.2 % 0.0-0.0 Above high normal MEDENT ([facility]) FASTING~.~.~E119 Baso 0.9 % 0.0-2.0 MEDENT ([facility]) FASTING~.~.~E119 %NRBC 0.0 % 0.0-0.0 [facility] ([facility]) FASTING~.~.~E119 #Neut 3.91 10^3/uL 2.00-6.90 MEDENT ([facility]) FASTING~.~.~E119 #Lymph 2.10 10^3/uL 0.60-3.40 MED[facility] ([facility]) FASTING~.~.~E119 #[place] 0.44 10^3/uL 0.00-0.90 MED[facility] ([facility]) FASTING~.~.~E119 #Ig 0.01 10^3/uL 0.00-0.10 [facility] ([facility]) FASTING~.~.~E119 #Baso 0.06 10^3/uL 0.00-0.20 [facility] ([facility]) FASTING~.~.~E119 #Eos 0.10 10^3/uL 0.00-0.70 [facility] ([facility]) FASTING~.~.~E119 #NRBC 0.00 10^3/uL 0.00-0.00 MED[facility] ([facility]) FASTING~.~.~E119 RBC Morph NOT INDICATED MEDENT ([facility]) FASTING~.~.~E119 Manual Diff NOT INDICATED MEDENT ([facility]) FASTING~.~.~E119 ID Date Data Source [id number] 11/15/2019 03:41:00 PM [facility] Name Value Range Interpretation Code Description Data Tyesha rce(s) Supporting Document(s) Amphetamines [Presence] in Urine by Screen method Negative ng/mL Cu gzuk=0478 [facility] Amphetamine test includes Amphetamine an d Methamphetamine. Barbiturates [Presence] in Urine by Screen method Negative ng/mL Cuto sm=630 [facility] Benzodiazepines [Presence] in Urine Negative ng/mL Ioyfmx=958 [facility] See Final Results Benzoylecgonine [Presence] in Urine Negative ng/mL Fikcrr=771 [facility] Opiates [Presence] in Urine Negative ng/mL Zghbio=010 [facility] Opiate test includes Codeine and Morphin e only. Phencyclidine [Presence] in Urine Negative ng/mL Cutoff=25 [facility] Positive Carboxy tetrahydrocannabinol [Mass/volume] in Urine 90 ng/mL Cutoff =15 [facility] ID Date Data Source [id number] 11/07/2019 08:06:00 AM [facility] Name Value Range Interpretation Code Description Data Tyesha rce(s) Supporting Document(s) Prostate specific Ag [Mass/volume] in Serum or Plasma 0.7 ng/mL 0.0- 4.0 [facility] [place] ECLIA methodology.According to the [place] [employer], Serum PSA shoulddecrease and remain at undetectable levels after radicalprostatectomy. The AUA defines biochemical recurrence as an initialPSA value 0.2 ng/mL or greater followed by a subsequent confirmatoryPSA value 0.2 ng/mL or greater.Values obtained with different assay methods or kits cannot be usedinterchangeably. Results cannot be interpreted as absolute evidenceof the presence or absence of malignant disease. Reflex Criteria COMMENT [facility] The percent free PSA is performed on a r eflex basis only when thetotal PSA is between 4.0 and 10.0 ng/mL. ID Date Data Source [id number] 11/04/2019 03:01:00 PM [facility] Name Value Range Interpretation Code Description Data Tyesha rce(s) Supporting Document(s) Hemoglobin A1c/Hemoglobin.total in Blood 8.0 % 4.4 - 6.1 H [facility] {A1]{HB] ID Date Data Source [id number] 11/04/2019 02:07:00 PM [facility] Name Value Range Interpretation Code Description Data Tyesha rce(s) Supporting Document(s) BNP 17 PG/ML 0 - 125 [facility] ID Date Data Source [id number] 11/04/2019 02:07:00 PM [facility] Value Range Interpretation Code Description Data Tyesha rce(s) Supporting Document(s) Calcidiol [Moles/volume] in Serum or Plasma 23 NG/ML [facility] VITAMIN-D(2 5HYDROXY) Deficiency: <=20 ng/ml Insufficiency: 21-29 ng/ml Preferred level: => 30 ng/ml ID Date Data Source [id number] 11/04/2019 02:07:00 PM [facility] Value Range Interpretation Code Description Data Tyesha rce(s) Supporting Document(s) Thyroxine (T4) free index in Serum or Plasma by calculation 0.94 NG/DL 0.93 - 1.70 [facility] ID Date Data Source [id number] 11/04/2019 02:07:00 PM [facility] Name Value Range Interpretation Code Description Data Tyesha rce(s) Supporting Document(s) Thyrotropin [Units/volume] in Serum or Plasma by Detec tion limit <= 0.05 mIU/L 3.22 uIU/mL 0.47 - 5.01 [facility] ID Date Data Source [id number] 11/04/2019 01:59:00 PM [facility] Value Range Interpretation Code Description Data Tyesha rce(s) Supporting Document(s) [facility] Cholesterol [Mass/volume] in Serum or Plasma 258 MG/DL 131 - 200 H [facility] Deprecated Triglyceride [Mass/volume] in Serum or Plasma 127 MG/DL 3 5 - 160 [facility] HDL 49 MG/DL 29 - 86 [facility] Cholesterol in LDL/Cholesterol in HDL [Mass Ratio] in Serum or Plasma 199 mg/dL 65 - 175 H [facility] Cholesterol.total/Cholesterol in HDL [Mass Ratio] in Serum o r Plasma 5.3 3.4 - 4.9 H [facility] LDL/HDL 4.06 1.00 - 3.55 H [facility] CVE RISK CHOL/HDL LDL/HDLMEN: 1/2 AVERAGE 3.43 1.00 AVERAGE 4.97 3.55 2X AVERAGE 9.55 6.25 3X AVERAGE 23.99 7.99WOMEN: 1/2 AVERAGE 3.27 1.47 AVERAGE 4.44 3.22 2X AVERAGE 7.05 5.03 3X AVERAGE 11.04 6.14 ID Date Data Source [id number] 11/04/2019 01:59:00 PM EST [facility] Name Value Range Interpretation Code Description Data Tyesha rce(s) Supporting Document(s) COMPREHENSIVE METABOLIC PANEL [facility] COMPREHENSIVE METABOLIC PANEL Sodium [Moles/volume] in Serum or Plasma 139 mEq/L 134 - 153 [facility] Potassium [Moles/volume] in Serum or Plasma 4.6 mEq/L 3.6 - 5.0 [facility] Chloride [Moles/volume] in Serum or Plasma 101 mEq/L 98 - 107 [facility] Carbon dioxide, total [Moles/volume] in Serum or Plasma 24 MEQ/L 22 - 30 [facility] Glucose [Mass/volume] in Serum or Plasma 206 MG/DL 65 - 110 H [facility] BUN 20 MG/DL 7 - 21 [facility] Creatinine [Mass/volume] in Serum or Plasma 0.8 MG/DL 0.7 - 1.5 [facility] BUN/CREAT 25 8 - 27 [facility] al Protein [Mass/volume] in Serum or Plasma 7.6 G/DL 6.3 - 8.2 [facility] Albumin [Mass/volume] in Serum or Plasma 4.4 G/DL 3.9 - 5.0 [facility] Globulin [Mass/volume] in Serum by calculation 3.2 GM/DL 2.4 - 3.2 [facility] A/G RATIO 1.4 0.8 - 2.0 [facility] Calcium [Mass/volume] in Serum or Plasma 9.7 MG/DL 8.4 - 10.2 [facility] Bilirubin.total [Mass/volume] in Serum or Plasma <0.7 MG/DL 0.2 - 1.3 [facility] Alkaline phosphatase [Enzymatic activity/volume] in Serum or Plasma 91 U/L 38 - 126 [facility] Aspartate aminotransferase [Enzymatic activity/volume] in Serum or Plasma 14 U/L 5 - 40 [facility] Alanine aminotransferase [Enzymatic activity/volume] in Seru m or Plasma 15 U/L 7 - 56 [facility] Anion gap 3 in Serum or Plasma 14.0 mmol/L 8.0 - 16.0 [facility] AGE 59 yrs [facility] NON-AA GFR >60 mL/min [facility] AFR AMER GFR >60 mL/min [facility] Male GFR In terprentation 20-49 [...] >32 mL/min Normal ID Date Data Source [id number] 11/04/2019 01:34:00 PM EST [facility] Name Value Range Interpretation Code Description Data Tyesha rce(s) Supporting Document(s) URINALYSIS [facility] URINALYSIS SOURCE R [facility] al COLOR yellow NORMAL: Yellow [facility] CLARITY clear NORMAL: Clear [facility] Specific gravity of Urine by Test strip 1.025 1.001 - 1.030 [facility] pH 5 5 - 9 [facility] Glucose [Mass/volume] in Urine by Test strip 250 NORMAL: Negat mireille A [facility] Bilirubin.total [Presence] in Urine by Test strip NEG NORMAL: Negative [facility] Ketones [Presence] in Urine by Test strip NEG NORMAL: Negative [facility] Protein [Mass/volume] in Urine by Test strip 15 NORMAL: Negat mireille [facility] Nitrite [Presence] in Urine by Test strip NEG NORMAL: Negative [facility] BLOOD NEG NORMAL: Negative [facility] Leukocyte esterase [Presence] in Urine by Test strip NEG NEREIDA L: Negative [facility] Urobilinogen [Mass/volume] in Urine by Test strip NOR less sunny n 1.0 mg/dL [facility] MICROSCOPIC See Below [facility] ital EPITHELIAL FEW NORMAL: NONE SEEN [facility] ID Date Data Source [id number] 11/04/2019 01:29:00 PM EST [facility] Name Value Range Interpretation Code Description Data Tyesha rce(s) Supporting Document(s) CBC W/AUTOMATED DIFF [facility] COMPLETE BLOOD COUNT Leukocytes [#/volume] in Blood by Automated count 6.6 10^3/uL 4.2 - 1 1.0 [facility] Erythrocytes [#/volume] in Blood by Automated count 5.31 10^6/uL 4. 50 - 6.30 [facility] Hemoglobin [Mass/volume] in Blood 16.0 g/dL 14.0 - 16.0 [facility] Hematocrit [Volume Fraction] of Blood by Automated count 48.2 % 4 1.0 - 51.0 [facility] Erythrocyte mean corpuscular volume [Entitic volume] by Auto mated count 90.8 fL 80.0 - 94.0 [facility] Erythrocyte mean corpuscular hemoglobin [Entitic mass] by Automated count 30.1 pg 27.0 - 34.0 [facility] Erythrocyte mean corpuscular hemoglobin concentration [Mass/volume] by Automated count 33.2 g/dL 31.0 - 36.0 [facility] Erythrocyte distribution width [Ratio] by Automated count 12.6 % 11.5 - 14.8 [facility] Platelets [#/volume] in Blood by Automated count 309 10^3/uL 150 - 45 0 [facility] Platelet mean volume [Entitic volume] in Blood by Automated count 9.4 fL 7.4 - 10.4 [facility] Neutrophils/100 leukocytes in Blood by Automated count 59.1 % 37. 0 - 80.0 [facility] Lymphocytes/100 leukocytes in Blood by Manual count 31.7 % 25.0 - 40.0 [facility] Monocytes/100 leukocytes in Blood by Automated count 6.6 % 3.0 - 8.0 [facility] Eosinophils/100 leukocytes in Blood by Automated count 1.5 % 0.0 - 7.0 [facility] Basophils/100 leukocytes in Blood by Automated count 0.9 % 0.0 - 2.0 [facility] %IG 0.2 % 0.0 - 0.0 H [facility] %NRBC 0.0 % 0.0 - 0.0 [facility] al Neutrophils [#/volume] in Blood by Automated count 3.91 10^3/uL 2.00 - 6.90 [facility] Lymphocytes [#/volume] in Blood by Automated count 2.10 10^3/uL 0.60 - 3.40 [facility] Monocytes [#/volume] in Blood by Automated count 0.44 10^3/uL 0.00 - 0.90 [facility] Eosinophils [#/volume] in Blood by Automated count 0.10 10^3/uL 0.00 - 0.70 [facility] Basophils [#/volume] in Blood by Automated count 0.06 10^3/uL 0.00 - 0.20 [facility] #IG 0.01 10^3/uL 0.00 - 0.10 [facility] #NRBC 0.00 10^3/uL 0.00 - 0.00 [facility] MANUAL DIFF NOT INDICATED [facility] RBC MORPH NOT INDICATED [facility] Procedure Social History Code Duration Value Status Description Data Source(s ) Smoking 05/14/2020 12:00:00 AM EDT Current Smoker completed Curre nt Smoker eCW1 (Formerly [facility]) Smoking 05/14/2020 12:00:00 AM EDT Current Smoker completed Curre nt Smoker eCW1 (Formerly [facility]) Vital Signs ID Date Data Source UNK Name Value Range Interpretation Code Description Data Source(s) Body surface area 2.24 m2 2.24 m2 [facility] ([facility]) Body mass index (BMI) [Ratio] 28.9 kg/m2 28.9 k g/m2 [facility] ([facility]) Body height 73 [in_i] 73 [in_i] [facility] ([facility]) 6'1" Body weight 99.338 kg 99.338 kg [facility] ([facility]) Body weight 219.00 [lb_av] 219.00 [lb_av] [facility] ([facility]) Oxygen saturation in Arterial blood by Pulse oximetry 97 % 97 % [facility] ([facility]) Respiratory rate 16 /min 16 /min [facility] ( [facility]) Body temperature 97.8 [degF] 97.8 [degF] [facility] ([facility]) Heart rate 57 /min 57 /min [facility] ([facility]) Diastolic blood pressure 62 mm[Hg] 62 mm[Hg] [facility] ([facility]) Systolic blood pressure 118 mm[Hg] 118 mm[Hg] [facility] ([facility])
[2020-12-21] MEDS ORDERED: PRAV80TA2 PO (01:44)
[2020-12-21] MEDS ORDERED: METF10004 PO (01:46)
[2020-12-21 01:52] LABS: RSV AMPLIFICATION NEGATIVE (NEGATIVE)
--- NOTE | 2020-12-21 02:00 | HPEPDOC ---
General Surgery H&P Date of Admission Dec 21, 2020 Attending Physician: YAN LITTLE MD History and Physical CHIEF COMPLAINT: self inflicted wound HISTORY OF PRESENT ILLNESS: Patient is a 60-year-old male brought in by EMS when he called him in reporting a self-inflicted nail gun wound to his epigastrium. Patient has a history of depression, last year also did the same thing shooting himself in the nail done. He reports he has been smoking crack with a past day or so. Been eating. He normally drinks every day but did not drink any alcohol yesterday. I roughly about 7 PM reports he shot himself with a nail gun. After few hours he called 911 and they had to search for him for about an hour or so. In the emergency room he is awake, alert and oriented, hemodynamically stable, blood pressures were elevated. He reports he has not been taking his medications for a while. He has a known history of diabetes as well as high blood pressure. On the medical records he is taking lisinopril. He is not on any blood thinners. ALLERGIES: Please see below. HOME MEDICATIONS: Please see below. PAST MEDICAL HISTORY: 1. Migraine headaches. 2. Diabetes 3. Hypertension 4. Hyperlipidemia 5. Depression. PAST SURGICAL HISTORY: 1. Appendectomy 2. Last year had a diagnostic laparoscopy for similar self-inflicted nail gun wound to the epigastrium hitting the liver and no other injuries noted 3. Right carpal tunnel release 4. Cardiac stents 2.. PERSONAL/SOCIAL HISTORY: Reports he smokes 2 packs a day, drinks alcohol daily, uses crack cocaine. REVIEW OF SYSTEMS: GENERAL: Symptoms are acute. Denies chills fatigue fever. HEENT: Denies blurring of vision, hearing problems. NECK: [Denies any neck pain]. CARDIOVASCULAR: [Denies chest pain and palpitations]. SKIN: [Denies rash]. NEUROLOGIC: Has history of migraine headaches, has not had any attacks in a while. PSYCHIATRIC: Reports history of depression, previous suicide attempt last year with a nail gun and subsequent admission to the psych service. HEMATOLOGY/ONCOLOGY: [Denies any bleeding or clotting disorder]. HEART: [Denies any chest pains, palpitations, paroxysmal dyspnea, orthopnea]. PULMONARY: [Denies chronic cough, dyspnea and wheezing]. GASTROINTESTINAL: See HPI. GENITOURINARY: [Denies dysuria, frequency, hematuria and nocturia]. ENDOCRINE: [Denies polydipsia, polyphagia, polyuria, heat or cold intolerance]. Known history of diabetes has not been taking his medications INFECTIOUS: [Denies any recent upper respiratory tract infection, UTI, need for use of antibiotics]. PHYSICAL EXAMINATION: VITAL SIGNS: Please see below. GENERAL APPEARANCE: Patient seen laying on bed, relatively comfortable he's responsive. [Awake, alert, oriented]. HEENT: [Normocephalic, atraumatic. [place] palpebral conjunctivae. Anicteric sclerae. Lips dry]. CHEST: [No chest wall abnormalities. Normal respiratory motion/effort]. NECK: [Supple. No thyromegaly. No lymphadenopathies]. LUNGS: [Lung sounds are clear to auscultation bilaterally. No wheezing appr eciated]. HEART: [No chest wall abnormalities. Heart rate and rhythm are regular with no murmurs]. ABDOMEN: Abdomen is flat there is a puncture wound at the midline subxiphoid area from the nail gun. The top of the nail is not visible on top of the skin. There is no active bleeding had prior paramedian incision from his appendectomy. No hernias. Mildly tender around the nail entry. SKIN: Warm and dry. EXTREMITIES: No deformities. NEUROLOGICAL: Awake, alert and oriented. ANCILLARIES: . LABORATORY DATA: Please see below. MICROBIOLOGY: Please see below. IMAGING: CTA chest CT abdomen and pelvis Shows a nail embedded in the epigastrium and the left lobe of the liver no active bleeding. Punctate her at the tract of the nail. IMPRESSION AND PLAN: Self-inflicted puncture wound to the abdomen from a nail gun Will bring the patient the operating room for diagnostic laparoscopy. Imaging shows the nail is embedded in the liver on the left lobe. No active exit with sedation inside of the liver. He is hemodynamically stable, hypertensive with blood pressure in the 200s. He has not been taking his medications for a while. He most likely will need psych evaluation and admission after making sure there are no life-threatening injuries with with his puncture injury.. Vital Signs Vital Signs Date Time Temp Pulse Resp B/P (MAP) Pulse Ox O2 Delivery O2 Flow Rate FiO2 12/21/20 00:56 98.4 12/21/20 00:33 69 18 206/112 96 Nasal Cannula 5.0 Laboratory Data Labs 24H Laboratory Tests 2 12/21/20 00:45: Immature Granulocyte % (Auto) 0.4, Neutrophils (%) (Auto) 77.2H, Lymphocytes (%) (Auto) 14.2L, Monocytes (%) (Auto) 7.4H, Eosinophils (%) (Auto) 0.3, Basophils (%) (Auto) 0.5, Neutrophils # (Auto) 8.0, Lymphocytes # (Auto) 1.5, Monocytes # (Auto) 0.8, Eosinophils # (Auto) 0.0, Basophils # (Auto) 0.1, Nucleated Red Blood Cells % (auto) 0.0, Prothrombin Time 13.2, Prothromb Time International Ratio 0.98, Activated Partial Thromboplast Time 22.2L 12/21/20 01:09: Bedside Glucose (Misc Panel) 194H 12/21/20 01:46: CBC/BMP Laboratory Tests 12/21/20 00:45 Home Medications Scheduled Aspirin (Aspirin EC) 81 Mg Tab, 81 MG PO QPM, (Reported) TAKES AT 1700 Dulaglutide (Trulicity) 0.75 Mg/0.5 Ml Pen.injctr, 0.75 ML SQ QWEEK, (Reported) Ergocalciferol (Vitamin D2) (Vitamin D2) 50,000 Units Cap, 50,000 UNITS PO Q2WK, (Reported) Lisinopril (Lisinopril) 10 Mg Tab, 10 MG PO QPM, (Reported) TAKES AT 1700 Metformin HCl (Metformin HCl) 1,000 Mg Tablet, 1,000 MG PO QPM, (Reported) TAKES AT 1700 Pravastatin Sodium (Pravastatin Sodium) 80 Mg Tablet, 80 MG PO QPM, (Reported) TAKES AT 1700 Venlafaxine HCl (Venlafaxine HCl ER) 75 Mg Cap, 75 MG PO QPM, (Reported) TAKES AT 1700 Allergies Coded Allergies: No Known Allergies (Unverified , 12/21/20) A-FIB/CHADSVASC A-FIB History Current/History of A-Fib/PAF?: No Current PO Anticoag Therapy: No YAN LITTLE MD Dec 21, 2020 02:00
[2020-12-21 02:11] LABS: ABG BASE EXCESS -4.3 (-2.0-2.0); ABG HCO3 18.9 MEQ/L (22.0-26.0); ABG O2 SATURATION 97.2 % (95.0-99.0); ABG PARTIAL PRESSURE CO2 29.7 mmHg (35.0-45.0); ABG PARTIAL PRESSURE O2 91.2 mmHg (75.0-100.0); ABG STANDARD HCO3 20.9 MEQ/L (22.0-26.0); ABG TOTAL CO2 19.8 MEQ/L (23.0-31.0); ABG pH (ARTERIAL) 7.422 UNITS (7.350-7.450)
[2020-12-21] MEDS ORDERED: BUPIVACAINE HCL 0.25% 30ML VIAL As Ordered ONE (02:11)
[2020-12-21] MEDS ORDERED: LIDOCAINE 1% SDV 30ML VIAL As Ordered ONE (02:11)
[2020-12-21 02:27] LABS: ALBUMIN 3.8 GM/DL (3.2-5.2); ALT/SGPT 25 U/L (12-78); AMYLASE 36 U/L (25-115); BILIRUBIN,DIRECT < 0.1 MG/DL (0.0-0.2); BILIRUBIN,TOTAL 0.4 MG/DL (0.2-1.0); BLOOD UREA NITROGEN 20 MG/DL (7-18); CALCIUM LEVEL 8.8 MG/DL (8.8-10.2); CARBON DIOXIDE LEVEL 27 MEQ/L (21-32); CHLORIDE LEVEL 106 MEQ/L (98-107); CK-MB VALUE MASS 2.6 NG/ML (<3.6); CPK CREATINE PHOSPHOKINASE 285 U/L (39-308); CREATININE FOR GFR 1.09 MG/DL (0.70-1.30); ETHYL ALCOHOL (ETHANOL) < 0.003 % (0.000-0.010); GLOMERULAR FILTRATION RATE > 60.0 (>49); GLUCOSE, FASTING 163 MG/DL (70-100); LIPASE 123 U/L (73-393); MB/CK RELATIVE INDEX 0.91 (< OR =4); POTASSIUM SERUM 3.8 MEQ/L (3.5-5.1); SODIUM LEVEL 139 MEQ/L (136-145); TOTAL PROTEIN 7.5 GM/DL (6.4-8.2); TROPONIN I < 0.02 NG/ML (< 0.10)
[2020-12-21] MEDS ORDERED: METOCLOPRAMIDE INJ 10MG/2ML VIAL (J2765 PER 1) As Ordered ONE (03:22)
[2020-12-21] MEDS ORDERED: MIDAZOLAM INJ 2MG/2ML VIAL (J2250 PER 1MG) As Ordered ONE (03:22)
[2020-12-21] MEDS ORDERED: ROCURONIUM BROMIDE 50 MG/5 ML VIAL As Ordered ONE (03:22)
[2020-12-21] MEDS ORDERED: propofoL 200 MG/20 ML VIAL As Ordered ONE (03:22)
[2020-12-21] MEDS ORDERED: hydrALAZINE 20MG/ML 1ML VIAL (J0360 PER 20MG) As Ordered ONE (03:22)
[2020-12-21] MEDS ORDERED: ONDANSETRON 4MG/2ML VIAL As Ordered ONE (03:22)
[2020-12-21] MEDS ORDERED: SUGAMMADEX SODIUM 500 MG/5 ML VIAL (BRIDION) As Ordered ONE (03:22)
[2020-12-21] MEDS ORDERED: fentaNYL 250 MCG/5 ML INJECTION (J3010) As Ordered ONE (03:22)
[2020-12-21] MEDS ORDERED: dexameTHASONE 4 MG/ML 1ML VIAL (J1100 PER 1MG) As Ordered ONE (03:22)
[2020-12-21] MEDS ORDERED: HYDROMORPHONE HCL 0.5 MG/ 0.5 ML SYRINGE (J1170 PER 1) IV PRN (03:45)
[2020-12-21] MEDS ORDERED: oxyCODONE 5MG TAB PO PRN (03:45)
[2020-12-21] MEDS ORDERED: ONDANSETRON 4MG/2ML VIAL IV PRN ×2 (03:45→04:00)
[2020-12-21] MEDS ORDERED: LR 1,000 ML IV SCH (03:46)
[2020-12-21] MEDS ORDERED: GLUCOSE 4GM CHEW TABLET PO PRN (04:00)
[2020-12-21] MEDS ORDERED: GLUCAGON INJ 1MG VIAL SC PRN (04:00)
[2020-12-21] MEDS ORDERED: ACETAMINOPHEN TAB 650MG DOSE (2X325MG) PO PRN (04:00)
[2020-12-21] MEDS ORDERED: DEXTROSE 50% 50 ML SYRINGE IV PRN (04:00)
--- NOTE | 2020-12-21 04:06 | ROOPDOC ---
[facility] Report Of Operation Report of Operation DATE OF PROCEDURE: 12/21/20 PREPROCEDURE DIAGNOSES: penetrating injury to abdomen (nail), laceration left wrist POSTPROCEDURE DIAGNOSES: puncture wound to left lobe of liver, no active bleeding, laceration left wrist PROCEDURE: Diagnostic Laparoscopy, removal of nail from liver, suture closure of laceration left wrist. SURGEON: Ivan Carreon MD DREDGE OPERATOR SUPERVISOR: ANESTHESIA: General Anesthesia. ESTIMATED BLOOD LOSS: Approximately 10 mL. COMPLICATIONS: none. REMARKS: . PROCEDURE NOTE: puncture wound to top portion left lobe of liver (IV), no penetration to the underside of the liver, no diaphragmatic injury, no gastrointestinal injury. DESCRIPTION OF PROCEDURE: Patient receive a dose of cefazolin 2 g IV during his stay in the emergency room. He was brought to the operating room, placed supine on the table. TEDs and sequential compression boots were placed in both lower extremities were DVT prophylaxis. Gen. endotracheal anesthesia was started. Anesthesia also placed an arterial line on his right wrist. His chest and abdomen was widely prepped and draped in the usual sterile fashion. We paused for a surgical timeout using both pre-incision safety checklist to verify correct patient, procedure site and additional clinical information prior to beginning the procedure Patient fired the gun male at the epigastrium just underneath the xiphisternum. The head of nail is not visible. There is no active bleeding. He has prior left paramedian incision. I entered the abdomen through the left upper quadrant. A Veress needle inserted. Intra-abdominal placement confirmed with saline drop technique. I slowly insufflated to only 10 mmHg as a do not want the nail to inadvertently pulled out and cause bleeding. I placed a 5 mm optical port through this same incision for me to visualize the nail. Using a 5 mm 30 lap aroscope, is able to visualize the nail coming through the abdominal wall slightly lifted up by the pneumoperitoneum but still piercing the left lobe of the liver at about segment 4. There was no active bleeding there is a small amount of hemoperitoneum at the top of the liver. There is no signs of succus or bile. This point a increased the insufflation to 15 mmHg. During around the laparoscope he has some omental adhesions on the left lower abdomen where he had the paramedian incision placed. I placed a fibrillar port just above the umbilicus away from those omental adhesions and another 5 mm port up higher along the left subcostal. I used the umbilical port as my camera port and the 2 left sided ports as my working ports. He was placed on a reverse in the midposition and slightly tilted towards the left side. I lifted the nail away from its entry point into the liver and did not see any active bleeding. At this point I enlarged the entry point in the skin and using a Ana Laura instrument removed the nail. I then looked underneath the liver for possible exit point and did not see any. There was no injury to the stomach nor underlying midline vessels. I then looked around for any other visible signs of injury and did not see any evidence of any further injury. I looked back at the entry point to the liver and irrigated this some and there was no active bleeding or bile leakage at this area. The small amount of hemoperitoneum was suctioned off. I then terminated the laparoscopy procedure. Abdomen was deflated, all ports were removed. The 3 ports were closed with 4-0 Monocryl in a subcuticular fashion. Steri-Strips and gauze dressings were placed. I left the entry wound open and displaced a dry gauze on top of this. Patient also has a laceration on his left wrist. He appears to have a clean cut on his left wrist that is mildly gaping but only at the level of the subcutaneous area. He also has 2 oblique shallower cuts. None of those was bleeding. This was cleaned off and prepped with Betadine and closed with 4-0 Monocryl in subcuticular fashion. I used Dermabond to close the skin. Patient remains hemodynamically stable throughout the course. He was promptly awakened, extubated and brought to recovery room in stable condition. IVAN CARREON MD Dec 21, 2020 04:06
[2020-12-21] MEDS ORDERED: fentaNYL 100 MCG/2 ML INJECTION (J3010) As Ordered ONE (04:21)
[2020-12-21] MEDS: fentaNYL 100 MCG/2 ML INJECTION (J3010) IV PRN ×2 (04:24→04:30)
[2020-12-21 05:08] LABS: BASO # 0.1 10^3/uL (0.0-0.2); BASO % 0.4 % (0.0-1.0); EOS % 0.1 % (0.0-3.0); HEMATOCRIT 40.3 % (42.0-52.0); HEMOGLOBIN 12.8 g/dl (13.5-17.5); LYMPH # 0.8 10^3/uL (1.5-5.0); LYMPH % 5.8 % (24.0-44.0); MEAN CORPUSCULAR HEMOGLOBIN 28.8 pg (27.0-33.0); MEAN CORPUSCULAR HGB CONC 31.8 g/dl (32.0-36.5); MEAN CORPUSCULAR VOLUME 90.6 fl (80.0-96.0); MONO # 0.4 10^3/uL (0.0-0.8); MONO % 3.3 % (0.0-5.0); NEUTROPHILS # 12.1 10^3/uL (1.5-8.5); PLATELET COUNT, AUTOMATED 259 10^3/uL (150-450); RED BLOOD COUNT 4.45 10^6/uL (4.30-6.10); WHITE BLOOD COUNT 13.5 10^3/uL (4.0-10.0)
[2020-12-21] MEDS ORDERED: NICOTINE POLACRILEX 2 MG GUM PO PRN (05:45)
[2020-12-21] MEDS: PERCOCET 5MG/325MG TAB PO PRN ×3 (06:42→21:32)
[2020-12-21] MEDS: HumaLOG INSULIN (NovoLOG) PER UNIT SC SCH ×4 (06:54→21:00)
--- NOTE | 2020-12-21 07:04 | HPEPDOC ---
[facility] [place] Medical History & Physical Date of Admission Dec 21, 2020 Date of Service: Dec 21, 2020 Primary Care Physician: ANSON COE NP Attending Physician: MARINA ROSS MD History and Physical TIME OF SERVICE: 450am REASON FOR CONSULT: Medical Co-management HISTORY OF PRESENT ILLNESS: This [id number]-year-old male reports struggling with a cocaine addiction for several years. Over the last 2 days. He reports binging on cocaine, thereafter reports feeling guilty and decided to attempt suicide by shooting himself with a nail gun. early this morning performed laparascopic removal of the nail from liver and sutured a laceration at the left wrist. At the time of my evaluation, the patient denied having any pain and was surprised that he already undergone surgery. He admitted not taking medications for his diabetes recently. REVIEW OF SYSTEMS: n/a except as listed in HPI PAST MEDICAL/ SURGICAL HISTORY: Hypertension Diabetes Migraines Chronic CAD with placement of 2 stents/ Dyslipidemia Depression History of substance induced psychosis Appendectomy Laparoscopy with exploration of the liver and removal of a penetrating nail in February 2020 SOCIAL HISTORY: He uses tobacco products and has a ongoing history of addiction to cocaine. He denied alcohol abuse, but per chart review, he has a history of alcohol abuse and history of Xanax abuse. FAMILY HISTORY: Both his father and younger brother committed suicide Multiple family members have a history of alcohol abuse ALLERGIES: Please see below. HOME MEDICATIONS: Please see below. PHYSICAL EXAMINATION: VITAL SIGNS: Please see below. GEN: well-nourished / well developed INTEGUMENT: not flushed/ not jaundice HEENT: lips acyanotic /mucus membranes moist and pink CVS: RRR/NMRG/ radial pulses intact LUNGS: able to speak full sentences without stopping to take a breath / no coughing / lungs are clear to auscultation bilaterally on room air ABDOMEN: Contour ( obese) / small post laparascopic scars are covered in clean and dry dressings NEURO: CN 2-12 are grossly intact / speech is not dysarthric PSYCH: alert and oriented to person place and time/ able to understand and follow all commands / teary during parts of the H&P LABORATORY DATA: 12/21/20 00:45 12/21/20 01:46 Immature Granulocyte % (Auto) 0.4, Neutrophils (%) (Auto) 77.2H, Lymphocytes (%) (Auto) 14.2L, Monocytes (%) (Auto) 7.4H, Eosinophils (%) (Auto) 0.3, Basophils (%) (Auto) 0.5, Neutrophils # (Auto) 8.0, Lymphocytes # (Auto) 1.5, Monocytes # (Auto) 0.8, Eosinophils # (Auto) 0.0, Basophils # (Auto) 0.1, Nucleated Red Blood Cells % (auto) 0.0, Prothrombin Time 13.2, Prothromb Time International Ratio 0.98, Activated Partial Thromboplast Time 22.2L, Coronavirus (COVID- 19)(PCR) NEGATIVE, Influenza Type A (RT-PCR) NEGATIVE, Influenza Type B (RT-PCR) NEGATIVE, Respiratory Syncytial Virus (PCR) NEGATIVE 12/21/20 01:09: Bedside Glucose (Misc Panel) 194H 12/21/20 01:46: Anion Gap 6L, Glomerular Filtration Rate > 60.0, Lactic Acid Level 2.1*H, Calcium Level 8.8, Total Bilirubin 0.4, Direct Bilirubin < 0.1, Aspartate Amino Transf (AST/SGOT) 21, Alanine Aminotransferase (ALT/SGPT) 25, Alkaline Phosphatase 78, Total Creatine Kinase 285, Creatine Kinase MB 2.6, Creatine Kinase MB Relative Index 0.91, Troponin I < 0.02, Total Protein 7.5, Albumin 3.8 , Albumin/Globulin Ratio 1.0, Amylase Level 36, Lipase 123, Ethyl Alcohol Level < 0.003 12/21/20 02:06: Blood Gas Bicarbonate Standard 20.9L, Arterial Blood pH 7.422, Arterial Blood Partial Pressure CO2 29.7L, Arterial Blood Partial Pressure O2 91.2, Arterial Blood Total CO2 19.8L, Arterial Blood HCO3 18.9L, Arterial Blood Base Excess - 4.3L, Arterial Blood Oxygen Saturation 97.2 12/21/20 05:00: Immature Granulocyte % (Auto) 0.4, Neutrophils (%) (Auto) 90.0H, Lymphocytes (%) (Auto) 5.8L, Monocytes (%) (Auto) 3.3, Eosinophils (%) (Auto) 0.1, Basophils (%) (Auto) 0.4, Neutrophils # (Auto) 12.1H, Lymphocytes # (Auto) 0.8L, Monocytes # (Auto) 0.4, Eosinophils # (Auto) 0.0, Basophils # (Auto) 0.1, Nucleated Red Blood Cells % (auto) 0.0 12/21/20 05:10: Bedside Glucose (Misc Panel) 129H 12/21/20 06:40: 12/21/20 06:48: Bedside Glucose (Misc Panel) 199H IMAGING: Chest xray "IMPRESSION: 1. Metallic radiopaque foreign body overlying the area of the GE junction. 2. Otherwise negative chest. " CTA chest "IMPRESSION: 1. Metallic nail at midline in the epigastrium extending into the left hepatic lobe and is approximately the 6 mm caudal to the heart. 2. Otherwise negative CTA chest. No pulmonary embolism is identified. " CTA abd/pelvis "IMPRESSION: 1. Midline metallic nail in the epigastrium extending into the left hepatic lobe which is more cephalad and more AP oriented since 03/04/2020. There is trace free air along the anterior aspect of the liver. 2. Otherwise negative CT abdomen/pelvis which is otherwise unchanged from the prior study. " MICROBIOLOGY: Please see below. ASSESSMENT: Mr. Xavier is is a 60-year-old male with history of alcohol abuse, cocaine abuse, HTN migraines and diabetes who underwent urgent surgery after attempting to commit suicide by shooting himself with a nail gun. We will consulted for medical comanagement. PLAN: 1. Suicide Attempt via self inflicted wound He has a hx of depression & substance induced psychosis POD #0 Plan: Primary team ( he already has pain meds, & suicide precautions ordered) /Venlafaxine for depression 2. Hypertension Plan: Lisinopril 3. Diabetes Plan: agree with plan to f/u FSBS, hypoglycemia protocol and SSI 4.Chronic CAD with placement of 2 stents/ Dyslipidemia Plan: ASA and statin 5. Tobacco Abuse Plan: nicotine patch & Nicorette gum 6. hx of Alcohol Abuse Plan: CIWA protocol DVT PROPHYLAXIS: Lovenox per Primary team Thank you for consulting us. We will continue to follow this patient with you. Home Medications Scheduled Aspirin (Aspirin EC) 81 Mg Tab, 81 MG PO QPM TAKES AT 1700 Dulaglutide (Trulicity) 0.75 Mg/0.5 Ml Pen.injctr, 0.75 ML SQ QWEEK Ergocalciferol (Vitamin D2) (Vitamin D2) 50,000 Units Cap, 50,000 UNITS PO Q2WK Lisinopril (Lisinopril) 10 Mg Tab, 10 MG PO QPM TAKES AT 1700 Metformin HCl (Metformin HCl) 1,000 Mg Tablet, 1,000 MG PO QPM TAKES AT 1700 Pravastatin Sodium (Pravastatin Sodium) 80 Mg Tablet, 80 MG PO QPM TAKES AT 1700 Venlafaxine HCl (Venlafaxine HCl ER) 75 Mg Cap, 75 MG PO QPM TAKES AT 1700 Allergies Coded Allergies: No Known Allergies (Unverified , 12/21/20) A-FIB/CHADSVASC A-FIB History Current/History of A-Fib/PAF?: No Current PO Anticoag Therapy: No MARINA ROSS MD Dec 21, 2020 07:04
[2020-12-21] MEDS: NICOTINE 14 MG/24 HR TRANSDERMAL TD SCH (08:12)
[2020-12-21] MEDS: ENOXAPARIN 40MG/0.4ML SYRINGE (J1650 PER 10MG) SC SCH (08:12)
[2020-12-21] MEDS ORDERED: LORazepam 2 MG TAB PO PRN (08:45)
[2020-12-21] MEDS: MULTIVITAMINS/MINERALS THERAP 1 TAB PO SCH (09:33)
[2020-12-21] MEDS: FOLIC ACID 1 MG TAB PO SCH (09:34)
[2020-12-21] MEDS: THIAMINE 100 MG TAB PO SCH ×2 (09:34→21:31)
--- NOTE | 2020-12-21 13:04 | IPNPDOC ---
Text Note Date of Service The patient was seen on 12/21/20. NOTE General Surgery. Dr Peña. Subjective. The patient is a 60-year-old male brought to [facility] by EMS 12/21/20 after a self-inflicted nail gun wound to the epigastrium. The patient is known to have history of substance use and depression with prior history of self-inflicted nail gun injury in 2019. The patient admits he used crack cocaine prior to the self injury 12/21. The patient was taken to the operating room 12/[address] Peña for diagnostic laparoscopy and removal of nail from the liver. The patient was also noted to have superficial lacerations at the left wrist which were also closed. The patient is POD1 status post removal of the nail from the top lobe of liver with no active bleeding, no diaphragmatic injury, no gastrointestinal injury. Th e patient states he is eating and drinking. Pain is controlled and he has used only 1 Percocet so far. Objective. Afebrile, heart rate 60, respiratory rate 20, blood pressure 109/59 and 91% on 1 L nasal cannula. Resting comfortably in bed, NAD Cardiovascular. S1-S2 regular rate and rhythm Respiratory. Respirations are easy, no wheezing. Abdomen. Surgical incisions C/D with dry dressing intact. No drainage. No bleeding. No surrounding erythema or signs of infection. Superficial lacerations left wrist are closed, Dermabond on the skin. 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 Intact sensation to light touch. Hand is warm with good perfusion. Dry dressing intact. WBC 13.5, hemoglobin 12.8, platelets 259, serum creatinine 1.09 with GFR greater than 60. Assessment and plan Self-inflicted nail gun injury to the epigastrium POD1 diagnostic laparoscopy with removal of nail from the liver and suture closure of laceration left wrist. The patient is reviewed and examined as per . The patient is eating and drinking. Pain is controlled. Sitter at bedside. Continue with dry dressings. The patient admits to crack cocaine use, previous history of similar self- inflicted wound in 2019, previous history of depression. [facility]. Spoke to Dr. Cancino who has agreed to see the patient. From a surgical perspective the patient is stable for transfer to [facility] when bed available. VS,Fishbone, I+O VS, Fishbone, I+O Laboratory Tests 12/21/20 00:45 12/21/20 01:46 12/21/20 05:00 Vital Signs Date Time Temp Pulse Resp B/P (MAP) Pulse Ox O2 Delivery O2 Flow Rate FiO2 12/21/20 08:00 97.5 60 20 109/59 (76) 91 Nasal Cannula 1.0 I&O- Last 24 Hours up to 6 AM 12/21/20 06:00 Intake Total 2850 ml Output Total 60 ml Balance 2790 ml Lina Guerrero Dec 21, 2020 13:04
[2020-12-21] MEDS ORDERED: TAMSULOSIN 0.4 MG CAP PO ONE (15:00)
--- NOTE | 2020-12-21 15:53 | ECGEPIP ---
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 Slightly increased heart rate compared with 08/08/2020. Electronically Signed on 12-21-2020 15:53:33 EST by Leonidas Moreno
[2020-12-21] MEDS: lisinopriL 10 MG TAB PO SCH (17:39)
[2020-12-21] MEDS: VENLAFAXINE **XR** 75MG CAPSULE PO SCH (17:39)
--- NOTE | 2020-12-21 19:34 | IPNPDOC ---
Text Note Date of Service The patient was seen on 12/21/20. NOTE Subjective: No any acute events overnight. Pt tolerates procedure well. In the morning patient developed urinary retention with residual volume around 900 mL, refused catheterization Objective: GENERAL APPEARANCE: NAD HEENT: no scleral icterus, no JVD, EOMI CARDIOVASCULAR: S1S2 LUNGS: CTA ABDOMEN: Surgical incisions C/D with dry dressing intact. No drainage. No bleeding. No surrounding erythema or signs of infection. MUSCULOSKELETAL: no cyanosis, no swelling INTEGUMENT: no generalized pallor NEUROLOGICAL: cranial nerve function from 2-12 intact intact, follows commands, speech not dysarthric Assessment and plan Patient is a 60-year-old male brought in by EMS when he called him in reporting a self-inflicted nail gun wound to his epigastrium. Patient has a history of depression, last year also did the same thing shooting himself in the nail gun. Status post surgical removal of nail Dressing intact surgical team follows him Suicidal attempt [facility] Urinary retention Flomax Diabetes type 2 Insulin sliding scale Diabetes diet Chronic CAD with placement of 2 stents/ Dyslipidemia ASA and statin Tobacco Abuse nicotine patch & Nicorette gum hx of Alcohol Abuse CIWA protocol VS,Fishbone, I+O VS, Fishbone, I+O Laboratory Tests 12/21/20 00:45 12/21/20 01:46 12/21/20 05:00 Vital Signs Date Time Temp Pulse Resp B/P (MAP) Pulse Ox O2 Delivery O2 Flow Rate FiO2 12/21/20 18:50 98.6 72 18 135/70 (91) 94 Room Air 12/21/20 08:00 1.0 I&O- Last 24 Hours up to 6 AM 12/21/20 06:00 Intake Total 2850 ml Output Total 60 ml Balance 2790 ml BIANKA HEART DO Dec 21, 2020 19:34
[2020-12-22] VITALS (7 sets, daily range): BP systolic 117–145; BP diastolic 66–75
[2020-12-22 06:12] LABS: BASO # 0.1 10^3/uL (0.0-0.2); BASO % 0.6 % (0.0-1.0); EOS # 0.2 10^3/uL (0.0-0.5); EOS % 2.5 % (0.0-3.0); HEMOGLOBIN 12.1 g/dl (13.5-17.5); LYMPH # 2.6 10^3/uL (1.5-5.0); LYMPH % 33.3 % (24.0-44.0); MEAN CORPUSCULAR HEMOGLOBIN 28.7 pg (27.0-33.0); MEAN CORPUSCULAR VOLUME 92.4 fl (80.0-96.0); MONO # 0.6 10^3/uL (0.0-0.8); MONO % 8.2 % (0.0-5.0); NEUTROPHILS # 4.2 10^3/uL (1.5-8.5); PLATELET COUNT, AUTOMATED 238 10^3/uL (150-450); RED BLOOD COUNT 4.22 10^6/uL (4.30-6.10); WHITE BLOOD COUNT 7.7 10^3/uL (4.0-10.0)
[2020-12-22 06:30] LABS: BLOOD UREA NITROGEN 20 MG/DL (7-18); CALCIUM LEVEL 8.2 MG/DL (8.8-10.2); CARBON DIOXIDE LEVEL 27 MEQ/L (21-32); CHLORIDE LEVEL 111 MEQ/L (98-107); CREATININE FOR GFR 0.98 MG/DL (0.70-1.30); GLOMERULAR FILTRATION RATE > 60.0 (>49); GLUCOSE, FASTING 131 MG/DL (70-100); MAGNESIUM LEVEL 1.9 MG/DL (1.8-2.4); SODIUM LEVEL 142 MEQ/L (136-145)
[2020-12-22] MEDS: THIAMINE 100 MG TAB PO SCH ×2 (08:12→19:59)
[2020-12-22] MEDS: FOLIC ACID 1 MG TAB PO SCH (08:12)
[2020-12-22] MEDS: MULTIVITAMINS/MINERALS THERAP 1 TAB PO SCH (08:12)
[2020-12-22] MEDS: ENOXAPARIN 40MG/0.4ML SYRINGE (J1650 PER 10MG) SC SCH (08:12)
[2020-12-22] MEDS: NICOTINE 14 MG/24 HR TRANSDERMAL TD SCH (08:13)
[2020-12-22] MEDS: HumaLOG INSULIN (NovoLOG) PER UNIT SC SCH ×4 (08:13→19:59)
[2020-12-22] MEDS ORDERED: TAMSULOSIN 0.4 MG CAP PO SCH (09:00)
--- NOTE | 2020-12-22 11:46 | IPNPDOC ---
Text Note Date of Service The patient was seen on 12/22/20. NOTE Subjective: No any acute events overnight. Urinary retention resolved. Objective: GENERAL APPEARANCE: NAD HEENT: no scleral icterus, no JVD, EOMI CARDIOVASCULAR: S1S2 LUNGS: CTA ABDOMEN: Surgical incisions C/D with dry dressing intact. No drainage. No bleeding. No surrounding erythema or signs of infection. MUSCULOSKELETAL: no cyanosis, no swelling INTEGUMENT: no generalized pallor NEUROLOGICAL: cranial nerve function from 2-12 intact intact, follows commands, speech not dysarthric Assessment and plan Patient is a 60-year-old male brought in by EMS when he called him in reporting a self-inflicted nail gun wound to his epigastrium. Patient has a history of depression, last year also did the same thing shooting himself in the nail gun. Status post surgical removal of nail Dressing intact surgical team follows him Suicidal attempt Patient will need transfer to [facility] after initial stabilization Urinary retention Flomax Diabetes type 2 Insulin sliding scale Diabetes diet Chronic CAD with placement of 2 stents/ Dyslipidemia ASA and statin Tobacco Abuse nicotine patch & Nicorette gum hx of Alcohol Abuse CIWA protocol VS,Fishbone, I+O VS, Fishbone, I+O Laboratory Tests 12/22/20 05:44 Vital Signs Date Time Temp Pulse Resp B/P (MAP) Pulse Ox O2 Delivery O2 Flow Rate FiO2 12/22/20 09:51 60 124/70 12/22/20 06:00 97.8 18 94 Room Air 12/21/20 08:00 1.0 I&O- Last 24 Hours up to 6 AM 12/22/20 06:00 Intake Total 1515 ml Output Total 1150 ml Balance 365 ml BIANKA HEART DO Dec 22, 2020 11:45
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
[2020-12-22] MEDS: VENLAFAXINE **XR** 75MG CAPSULE PO SCH (17:18)
[2020-12-22] MEDS: lisinopriL 10 MG TAB PO SCH (17:19)
[2020-12-22] MEDS ORDERED: FLOM0.4C39 PO ×2 (18:14→23:28)
[2020-12-22] MEDS ORDERED: ACET1TAB55 PO (18:17)
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
--- NOTE | 2020-12-23 12:04 | DS.PDOC ---
Discharge Summary General Date of Admission Dec 21, 2020 at 01:37 Date of Discharge 12/22/2020 Discharge Summary PROCEDURES PERFORMED DURING STAY: Diagnostic laparoscopy, removal of embedded 3 inch nail to be liver, wash out. Closure of left wrist laceration. ADMITTING DIAGNOSES: 1. Self-inflicted penetrating nail gun injury to the epigastric area. 2. Cocaine abuse 3. History of major depression, suicidal ideation 4. Hypertension, not taking prescribed medications DISCHARGE DIAGNOSES: 1. Penetrating injury to the liver 2. Cocaine abuse 3. Major depression with suicidal ideation 4. Hypertension 5. Urinary retention, resolved . COMPLICATIONS/CHIEF COMPLAINT: Self Inflicting Nail To Epigastric. HISTORY OF PRESENT ILLNESS: Patient is a 60-year-old male brought in by EMS when he called him in reporting a self-inflicted nail gun wound to his epigastrium. Patient has a history of depression, last year also did the same thing shooting himself in the nail done. He reports he has been smoking crack with a past day or so. Been eating. He normally drinks every day but did not drink any alcohol yesterday. I roughly about 7 PM reports he shot himself with a nail gun. After few hours he called 911 and they had to search for him for about an hour or so. In the emergency room he is awake, alert and oriented, hemodynamically stable, blood pressures were elevated. He reports he has not been taking his medications for a while. He has a known history of diabetes as well as high blood pressure. On the medical records he is taking lisinopril. He is not on any blood thinners. HOSPITAL COURSE: Patient is hemodynamically stable on arrival, awake, GCS 15. He had a superficial laceration to the left wrist from an attempt at slashing his wrists. He had a penetrating nail in his epigastric area which is fully embedded. CT shows this to be traversing the left lobe of the liver. He was emergently brought to the operating room and under general anesthesia underwent diagnostic laparoscopy. Nail was noted to be embedded into the left lobe of the liver, segment 4 but did not go through and through the liver substance and no other injuries were found. The needle was removed and no active bleeding noted at the liver surface. This laceration was also closed with sutures. He was then admitted to the floor. When amply stable throughout his stay and was tolerating food. At postop day 1 he was noted to have some urinary retention. He refused straight catheterization. He was given Flomax with gradual improvement of his urinary retention. He was voiding spontaneously following day. Hospitalist were also involved with control of his high blood pressure. Psychiatry was consulted and telemetry consult was obtained. He was deemed he needed to be admitted at the psychiatric unit given his depression and suicidal ideation. He was stable the following day and later on transferred to the inpatient psychiatric unit. DISCHARGE MEDICATIONS: Please see below. ALLERGIES: Please see below. PHYSICAL EXAMINATION ON DISCHARGE: VITAL SIGNS: Please see below. GENERAL: Comfortable. Cooperative. HEENT: Cephalic, atraumatic. Lips and mucosa are moist. NECK: Supple, no jugular venous distention CARDIOVASCULAR EXAMINATION: Regular heart rate and rhythm without murmurs RESPIRATORY EXAMINATION: Clear breath sounds auscultation bilaterally ABDOMINAL EXAMINATION: Soft, flat, nondistended. He has 3 laparoscopic port sites along the left side which are closed and covered with Steri-Strips. The nail entry point is left open and covered with dry gauze. Mildly tender around the epigastric area where the nail entry point as. EXTREMITIES: Left wrist closure covered with Dermabond, no bleeding SKIN: No jaundice NEUROLOGICAL EXAMINATION: Awake, alert and oriented PSYCHIATRIC EXAMINATION: Mood is stable, appropriate LABORATORY DATA: Please see below. IMAGING: CT chest abdomen and pelvis PROGNOSIS: Good ACTIVITY: As tolerated. DIET: As tolerated DISCHARGE PLAN: Patient is discharged to the inpatient psychiatric unit DISPOSITION: 65 [facility]. DISCHARGE INSTRUCTIONS: 1. Leave the nail entry point wound open for secondary healing. Observe for possible infection. . DISCHARGE CONDITION: Stable. TIME SPENT ON DISCHARGE: Greater than 45 minutes. Vital Signs/I&Os Vital Signs Date Time Temp Pulse Resp B/P (MAP) Pulse Ox O2 Delivery O2 Flow Rate FiO2 12/22/20 22:00 60 124/70 12/22/20 20:10 97.9 18 96 Room Air 12/21/20 08:00 1.0 I&O- Last 24 Hours up to 6 AM 12/23/20 06:00 Intake Total 1350 ml Output Total 1100 ml Balance 250 ml Laboratory Data Labs 24H Laboratory Tests 2 12/22/20 16:42: Bedside Glucose (Misc Panel) 182H 12/22/20 19:42: Bedside Glucose (Misc Panel) 134H FSBS Laboratory Tests Test 12/22/20 16:42 12/22/20 19:42 Range/Units [facility] 182 134 80-115 MG/DL Discharge Medications Scheduled Aspirin (Aspirin EC) 81 Mg Tab, 81 MG PO QPM for ., (Reported) TAKES AT 1700 Dulaglutide (Trulicity) 0.75 Mg/0.5 Ml Pen.injctr, 0.75 ML SQ QWEEK for ., (Reported) Ergocalciferol (Vitamin D2) (Vitamin D2) 50,000 Units Cap, 50,000 UNITS PO Q2WK for ., (Reported) Lisinopril (Lisinopril) 10 Mg Tab, 10 MG PO QPM for ., (Reported) TAKES AT 1700 Metformin HCl (Metformin HCl) 1,000 Mg Tablet, 1,000 MG PO QPM for ., (Reported) TAKES AT 1700 Pravastatin Sodium (Pravastatin Sodium) 80 Mg Tablet, 80 MG PO QPM for ., (Reported) TAKES AT 1700 Tamsulosin HCl (Flomax) 0.4 Mg Capsule, 0.8 MG PO DAILY for ., (Reported) Venlafaxine HCl (Venlafaxine HCl ER) 75 Mg Cap, 75 MG PO QPM for ., (Reported) TAKES AT 1700 Allergies Coded Allergies: No Known Allergies (Unverified , 12/21/20) YAN LITTLE MD Dec 23, 2020 12:04
--- NOTE | 2020-12-23 17:46 | DS.PDOC ---
Discharge Summary General Date of Admission Dec 21, 2020 at 01:37 Date of Discharge 12/22/20 Discharge Summary PROCEDURES PERFORMED DURING STAY: [None]. ADMITTING DIAGNOSES: Status post surgical removal of nail Suicidal attempt Urinary retention Diabetes type 2 Chronic CAD with placement of 2 stents/ Dyslipidemia Tobacco Abuse hx of Alcohol Abuse DISCHARGE DIAGNOSES: Status post surgical removal of nail Suicidal attempt Urinary retention Diabetes type 2 Chronic CAD with placement of 2 stents/ Dyslipidemia Tobacco Abuse hx of Alcohol Abuse COMPLICATIONS/CHIEF COMPLAINT: Self Inflicting Nail To Epigastric. HISTORY OF PRESENT ILLNESS:Patient is a 60-year-old male brought in by EMS when he called him in reporting a self-inflicted nail gun wound to his epigastrium. Patient has a history of depression, last year also did the same thing shooting himself in the nail gun HOSPITAL COURSE: During hospital stay following issue addressed Status post surgical removal of nail Dressing intact Surgical team removal of the nail from the liver Suicidal attempt Patient will need transfer to [facility] after initial stabilization Urinary retention Flomax Diabetes type 2 Insulin sliding scale Diabetes diet Chronic CAD with placement of 2 stents/ Dyslipidemia ASA and statin Tobacco Abuse nicotine patch & Nicorette gum hx of Alcohol Abuse CIWA protocol DISCHARGE MEDICATIONS: Please see below. ALLERGIES: Please see below. PHYSICAL EXAMINATION ON DISCHARGE: VITAL SIGNS: Please see below. GENERAL APPEARANCE: NAD HEENT: no scleral icterus, no JVD, EOMI CARDIOVASCULAR: S1S2 LUNGS: CTA ABDOMEN: Surgical incisions C/D with dry dressing intact. No drainage. No bleeding. No surrounding erythema or signs of infection. MUSCULOSKELETAL: no cyanosis, no swelling INTEGUMENT: no generalized pallor NEUROLOGICAL: cranial nerve function from 2-12 intact intact, follows commands, speech not dysarthric LABORATORY DATA: Please see below. IMAGING: [facility] NAME: GILDA HAGAN DATE OF : 1960 BUSINESS NUMBER: [id number] AGE: 60 SEX: M REPORT #: [id number] ROOM: ED TECHNOLOGIST: ALESSANDRO DOCTOR: NOA BULLOCK DO Ordered for Date&Time: 12/21/20 0040 cc: [~ rep ct ivnm] Service Date&Time: This report is in Signed status. Interpretation performed by [facility]. Thank you for having your radiology procedures performed at [facility] RADIOLOGY REPORT Date&Time printed: [~ rep prt dt last] [~ rep prt tm last] Page 2 of [address] [id number] RADIOLOGY REPORT This report is in Signed status. Interpretation performed by [facility]. Thank you for having your radiology procedures performed at [facility] RADIOLOGY REPORT Date&Time printed: [~ rep prt dt last] [~ rep prt tm last] Page 1 of 2 PROCEDURE INFORMATION: Exam: CT Angiography Chest With Contrast Exam date and time: 12/21/2020 12:40 AM Age: 60 years old Clinical indication: Chest pain; Type not specified; Additional info: Self inflicted penetrating trauma to abdomen TECHNIQUE: Imaging protocol: Computed tomographic angiography of the chest with contrast. 3D rendering (Not supervised by radiologist): MIP and/or 3D reconstructed images were created by the technologist. Radiation optimization: All CT scans at this facility use at least one of these dose optimization techniques: automated exposure control; mA and/or kV adjustment per patient size (includes targeted exams where dose is matched to clinical indication); or iterative reconstruction. Contrast material: ISO; Contrast volume: 100 ml; Contrast route: INTRAVENOUS (IV); COMPARISON: CT Chest with contrast 03/04/2020 7:31 AM FINDINGS: Pulmonary arteries: The main pulmonary artery measures 33 mm. No pulmonary embolism is identified. Aorta: The ascending thoracic aorta measures 35 mm. No gross or obvious aortic dissection is identified distal to the mid arch. Artifact and image degradation precludes detailed evaluation of the ascending thoracic aorta. Lungs: Minimal bibasilar fibro-atelectatic change. Pleural spaces: Unremarkable. No pneumothorax. No pleural effusion. Heart: Unremarkable. No cardiomegaly. No pericardial effusion. Lymph nodes: Unremarkable. No enlarged lymph nodes. Liver: Metallic nail in the epigastrium at midline extending into the left hepatic lobe and is just caudal to the heart and diaphragm measuring approximately 6 mm from the pericardium and diaphragm. Bones/joints: Unremarkable. No acute fracture. Soft tissues: Subcutaneous edema and gas in the epigastrium along the nail tract and trace gas along the anterior aspect of the liver. IMPRESSION: 1. Metallic nail at midline in the epigastrium extending into the left hepatic lobe and is approximately the 6 mm caudal to the heart. 2. Otherwise negative CTA chest. No pulmonary embolism is identified. Electronically signed by: Lorenza May On 12/21/2020 01:26:49 AM DD: LORENZA MAY MD 12/21/2039 DT: JACKSON 12/21/20125 DS: RAFAT 12/21/20125 [~ rep ct labl] PROGNOSIS: Fair ACTIVITY: [As tolerated]. DIET: Diabetes diet DISPOSITION: [facility]. ITEMS TO FOLLOWUP ON ON OUTPATIENT: Follow-up with PCP and psychiatrist DISCHARGE CONDITION: [Stable]. TIME SPENT ON DISCHARGE: Greater than 30 minutes. Vital Signs/I&Os Vital Signs Date Time Temp Pulse Resp B/P (MAP) Pulse Ox O2 Delivery O2 Flow Rate FiO2 12/22/20 22:00 60 124/70 12/22/20 20:10 97.9 18 96 Room Air 12/21/20 08:00 1.0 I&O- Last 24 Hours up to 6 AM 12/23/20 06:00 Intake Total 1350 ml Output Total 1100 ml Balance 250 ml Laboratory Data Labs 24H Laboratory Tests 2 12/22/20 19:42: Bedside Glucose (Misc Panel) 134H FSBS Laboratory Tests Test 12/22/20 19:42 Range/Units Bedside Glucose (Misc Panel) 134 80-115 MG/DL Discharge Medications Scheduled Aspirin (Aspirin EC) 81 Mg Tab, 81 MG PO QPM for ., (Reported) TAKES AT 1700 Dulaglutide (Trulicity) 0.75 Mg/0.5 Ml Pen.injctr, 0.75 ML SQ QWEEK for ., (Reported) Ergocalciferol (Vitamin D2) (Vitamin D2) 50,000 Units Cap, 50,000 UNITS PO Q2WK for ., (Reported) Lisinopril (Lisinopril) 10 Mg Tab, 10 MG PO QPM for ., (Reported) TAKES AT 1700 Metformin HCl (Metformin HCl) 1,000 Mg Tablet, 1,000 MG PO QPM for ., (Reported) TAKES AT 1700 Pravastatin Sodium (Pravastatin Sodium) 80 Mg Tablet, 80 MG PO QPM for ., (Reported) TAKES AT 1700 Tamsulosin HCl (Flomax) 0.4 Mg Capsule, 0.8 MG PO DAILY for ., (Reported) Venlafaxine HCl (Venlafaxine HCl ER) 75 Mg Cap, 75 MG PO QPM for ., (Reported) TAKES AT 1700 Allergies Coded Allergies: No Known Allergies (Unverified , 12/21/20) BIANKA HEART DO Dec 23, 2020 17:46
== END 2020-12-22 23:00 | DRG 260 ==
LOC: M ED 00:30 → M ED INP 01:37 → M PCU 05:48 → M MS5PR 15:15
PROVIDERS: ADMIT Surgery; ATTEND Surgery
PROC: 0HQEXZZ Repair Left Lower Arm Skin, External Approach (ICD-10-PCS; 2020-12-21)
PROC: 0FC04ZZ Extirpation of Matter from Liver, Percutaneous Endoscopic Approach (ICD-10-PCS; principal; 2020-12-21 01:37)
DX: S36.113A Laceration of liver, unspecified degree, initial encounter (principal); S61.512A Laceration without foreign body of left wrist, initial encounter; Y92.009 Unspecified place in unspecified non-institutional (private) residence as the place of occurrence of the external cause; G43.909 Migraine, unspecified, not intractable, without status migrainosus; E11.9 Type 2 diabetes mellitus without complications; I10 Essential (primary) hypertension; E78.5 Hyperlipidemia, unspecified; F32.9 Major depressive disorder, single episode, unspecified; Z95.2 Presence of prosthetic heart valve; F17.200 Nicotine dependence, unspecified, uncomplicated; F10.10 Alcohol abuse, uncomplicated; F14.90 Cocaine use, unspecified, uncomplicated; Z79.82 Long term (current) use of aspirin; Z79.899 Other long term (current) drug therapy; I25.10 Atherosclerotic heart disease of native coronary artery without angina pectoris; R33.9 Retention of urine, unspecified

== ENCOUNTER 2020-12-22 19:38 | Inpatient (IN) | payer MEDICAID, OTHER ==
[~2020-12-22] VITALS: Ht 185.4 cm; Wt 93.0 kg
[~2020-12-22 19:38] MED LIST changes: +ACET1TAB55 PO; +FLOM0.4C39 PO; +METF10004 PO
[2020-12-22] MEDS ORDERED: HumaLOG INSULIN (NovoLOG) PER UNIT SC SCH (21:00)
[2020-12-22] MEDS ORDERED: PERCOCET 5MG/325MG TAB PO PRN (21:15)
[2020-12-22] MEDS ORDERED: DEXTROSE 50% 50 ML SYRINGE IV PRN (21:15)
[2020-12-22] MEDS ORDERED: LORazepam 2 MG TAB PO PRN (21:15)
[2020-12-22] MEDS ORDERED: GLUCOSE 4GM CHEW TABLET PO PRN (21:15)
[2020-12-22] MEDS ORDERED: GLUCAGON INJ 1MG VIAL SC PRN (21:15)
[2020-12-22] MEDS ORDERED: ACETAMINOPHEN TAB 650MG DOSE (2X325MG) PO PRN (21:45)
[2020-12-22] MEDS ORDERED: NICOTINE 21MG/24HR 1 EA TRANSDERMAL TD PRN (21:45)
[2020-12-22] MEDS ORDERED: OLANZapine ORAL DISINTEGRATING TAB 5MG PO PRN (21:45)
[2020-12-22] MEDS ORDERED: MOM 30ML SUSPENSION UDC PO PRN (21:45)
[2020-12-22] MEDS ORDERED: MAALOX 30 ML SUSP *UDC PO PRN (21:45)
--- OUTSIDE RECORDS SUMMARY | 2020-12-22 21:54 | CCD ---
Author Author [facility] Organization [facility] Address Unknown Phone Unavailable Care Team Providers Care Resaw Operator Name Role Phone ZURDO KILPATRICK MD Unavailable [...] Unavailable ZURDO KILPATRICK MD Unavailable Unavailable ZURDO KILPATRIKC MD Unavailable Unavailable ZURDO KILPATRICK MD Unavailable [...] K SHINE PA Unavailable Unavailable ROCIO, K SHIEN PA Unavailable Unavailable ROCIO, K SHINE PA [...] is protected by Article 27-F of the [facility] Public Health law. If you continue you may have access to information: Regarding HIV / AIDS; Provided by facilities licensed or operated by the [facility] Office of Mental Health; or Provided by the [facility] Office for People With Developmental Disabilities. If such information is present, then the following [facility] mandated warning applies: This information has [...] law may result in a fine or chcf sentence or both. A general authorization for the release of medical or other information is NOT sufficient authorization for further disc losure. Allergies and Adverse Reactions Type Description Substance Reaction Status Data Source(s ) No Known Allergies No Known Allergies [facility] Family History Family Member Name Family Member Gender Family Member Status Date o f Status Description Data Source(s) Unknown Female Problem [facility] ([facility]) Encounters Encounter Providers Location Date Indications Data Source(s ) [place] [address] [facility] [address] 10/01/2020 12:00:00 AM EST eCW1 ([facility]) [place] [address] [facility] [address] 06/01/2020 12:00:00 AM EDT eCW1 ([facility]) Outpatient Referrer: SHINE HOLDEN 03/28/2020 09:56:00 AM EDT [facility] Outpatient Attender: ZURDO KILPATRICK MDConsultant: ZURDO Dutta MD 11/04/2019 08:07:00 AM EST - 11/04/2019 08:07:00 AM EST [facility] Outpatient Attender: ZURDO KILPATRICK MD Family Practice 11/04/2019 0 7:00:00 AM EST [facility] ([facility]) Medications Medication Brand Name [...] TABLET BY MOUTH EVERY DAY SOLD: 09/13/2020 [facility] 81 mg 09/09/2020 12:00:00 AM EDT [...] MG/Dose) 11/04/2019 12:00:00 AM EST active MED[facility] ([facility]) Ergocalciferol 57089 UNT Oral Capsule Vitamin D (Ergocalcife rol) 11/04/2019 12:00:00 AM EST ORAL active M EDENT ([facility]) 75 mg 10/27/2019 12:00:00 AM EST capsule,extended releas e 24hr 90 TAKE ONE CAPSULE BY MOUTH EVERY DAY TAKE ONE CAPSULE BY MOUTH EVERY DAY SOLD: 10/28/2019 [facility] Insurance Providers Payer name Policy type / Coverage type Policy ID Covered constitution party ID Covered constitution party's relationship to varner Policy Varner Plan Information [facility] COMMUNITY PLAN [facility] [id number] SP [id number] [facility] [id number] SP [id number] [facility](MCAID) O [id number] S [id number] [facility] COMMUNTY PLAN [id number] Private Pay Commercial [id number] Self [id number] [employer] AMERICHOICE XIX O [id number] 18 [id number] [facility] COMMUNITY PLAN [id number] 18 [id number] [facility] Community Plan Medicaid [id number] Self [id number] [facility] Community Plan Medicaid [id number] Self [id number] [facility] Community Plan Medicaid [id number] Self [id number] [facility] Community Plan Medicaid [facility] HEALTHCARE(MCAID) O [id number] S [id number] [employer]HC AMERICHOICE XIX O [id number] 18 [id number] [employer] S [id number] S [id number] [employer] P [id number] S [id number] [facility] COMMUNITY PLAN [facility] [id number] SP [id number] MEDICAID [id number] SP [id number] Problems, Conditions, and Diagnoses Code Display Name Description Problem Type Effective Dates Data Source(s) G43.799 [id number] Migraine with aura a nd without status migrainosus, not intractable Problem 05/14/2020 12:00:00 AM EDT eCW1 ([facility]) I25.10 [id number] Coronary artery dise ase involving [place] coronary artery of [place] heart without angina pectoris Problem 05/14/2020 12:00:00 AM EDT eCW1 ([facility]) E11.9 [id number] Type 2 diabetes adriane itus without complication, without long-term current use of insulin Problem 05/14/2020 12:00:00 AM EDT eCW1 ([facility]) F17.218 [id number] Cigarette nicotine d ependence with other nicotine- induced disorder Problem 05/14/2020 12:00:00 AM EDT eCW1 ([facility]) E78.2 [id number] Mixed hyperlipidemia Problem 05/14/2020 12:0 0:00 AM EDT eCW1 ([facility]) I10 [id number] Essential hypertension Problem 05/14/2020 12 :00:00 AM EDT eCW1 ([facility]) F41.8 [id number] Anxiety with depression Problem 05/14/2020 1 2:00:00 AM EDT eCW1 ([facility]) F411 Generalized anxiety disorder Generalized anxiety disor jasper Diagnosis 11/04/2019 08:07:00 AM [facility] I10 Essential (primary) hypertension Essential (primary) h ypertension Diagnosis 11/04/2019 08:07:00 AM [facility] E785 Hyperlipidemia, unspecified Hyperlipidemia, unspecifie d Diagnosis 11/04/2019 08:07:00 AM [facility] Z9111 Patient's noncompliance with dietary reg imen Patient's noncompliance with dietary regimen Diagnosis 11/04/2019 08:07:00 AM [facility] Z9119 Patient's noncompliance with other medic al treatment and regimen Patient's noncompliance with other medical treatment and regimen Diagnosis 11/04/2019 08:07:00 AM [facility] E559 Vitamin D deficiency, unspecified Vitamin D defi ciency, unspecified Diagnosis 11/04/2019 08:07:00 AM [facility] E119 Type 2 diabetes mellitus without complic ations Type 2 diabetes mellitus without complications Diagnosis 11/04/2019 08:07:00 AM [facility] Surgeries/Procedures Procedure Description Date Indications Data Source(s) Brief Emotional/Behav Assessment W/ Scoring Doc Per Standard Inst 11/04/2019 12:00:00 AM [facility] Results ID Date Data Source [id number] 12/21/2020 12:45:00 AM EST [facility] Name Value Range Interpretation Code Description Data Tyesha rce(s) Supporting Document(s) SARS coronavirus 2 RNA [Presence] in Res piratory specimen by ISMA with probe detection NEGATIVE [facility] This lab was ordered by [facility] a nd reported by [facility]. ID Date Data Source [id number] 11/04/2019 08:48:00 AM EST MEDENT ([facility]) Name Value Range Interpretation Code Description Data Tyesha rce(s) Supporting Document(s) Thyroxine (T4) free [Mass/volume] in Serum or Plasma 0.94 ng/dL 0.93- 1.70 MEDENT ([facility]) FASTING~.~.~E119 Calcidiol [Mass/volume] in Serum or Plasma 23 ng/mL [facility] ([facility]) FASTING~.~.~E119 Thyrotropin [Units/volume] in Serum or Plasma 3.22 uIU/mL 0.47-5.01 [facility] ([facility]) FASTING~.~.~E119 Natriuretic peptide.B prohormone N-Terminal [Mass/volu me] in Serum or Plasma 17 pg/mL 0-125 MEDENT ([facility]) FASTING~.~.~E119 ID Date Data Source [id number] 11/04/2019 08:48:00 AM EST MEDENT ([facility]) Name Value Range Interpretation Code Description Data Tyesha rce(s) Supporting Document(s) Urinalysis (SEE NOTE) MEDENT ([facility]) FASTING~.~.~E119 Source R MEDENT ([facility]) FASTING~.~.~E119 Clarity clear MED[facility] ([facility]) FASTING~.~.~E119 Color yellow MED[facility] ([facility]) FASTING~.~.~E119 Spec [place] 1.025 1.001-1.030 MEDENT ([facility]) FASTING~.~.~E119 Glucose 250 Abnormal (applies to non-numeric res ults) MED[facility] ([facility]) FASTING~.~.~E119 pH 5 5-9 MED[facility] ([facility]) FASTING~.~.~E119 Bilirubin NEG [facility] ([facility]) FASTING~.~.~E119 Ketone NEG [facility] ([facility]) FASTING~.~.~E119 Protein 15 [facility] ([facility]) FASTING~.~.~E119 Blood NEG [facility] ([facility]) FASTING~.~.~E119 Nitrite NEG [facility] ([facility]) FASTING~.~.~E119 Leuk Est NEG [facility] ([facility]) FASTING~.~.~E119 Microscopic See Below MEDENT ([facility]) FASTING~.~.~E119 Urobilinogen NOR MED[facility] ([facility]) FASTING~.~.~E119 Epithelial FEW MEDENT ([facility]) FASTING~.~.~E119 ID Date Data Source [id number] 11/04/2019 08:48:00 AM EST MED[facility] ([facility]) Name Value Range Interpretation Code Description Data Tyesha rce(s) Supporting Document(s) Cve Panel (SEE NOTE) MED[facility] ([facility]) FASTING~.~.~E119 Cholesterol 258 mg/dL 131-200 Above high normal [facility] ([facility]) FASTING~.~.~E119 Triglycerides 127 mg/dL 35-160 [facility] ([facility]) FASTING~.~.~E119 HDL 49 mg/dL 29-86 [facility] ([facility]) FASTING~.~.~E119 LDL 199 mg/dL 65-175 Above high normal [facility] ([facility]) FASTING~.~.~E119 Risk Factor 5.3 3.4-4.9 Above high normal [facility] ([facility]) FASTING~.~.~E119 LDL/HDL 4.06 1.00-3.55 Above high normal [facility] ([facility]) FASTING~.~.~E119 ID Date Data Source [id number] 11/04/2019 08:48:00 AM EST MEDENT ([facility]) Name Value Range Interpretation Code Description Data Tyesha rce(s) Supporting Document(s) Comprehensive Metabo (SEE NOTE) MED[facility] ( [facility]) FASTING~.~.~E119 Sodium 139 meq/L 134-153 MED[facility] ([facility]) FASTING~.~.~E119 Chloride 101 meq/L 98-107 [facility] ([facility]) FASTING~.~.~E119 Potassium 4.6 meq/L 3.6-5.0 [facility] ([facility]) FASTING~.~.~E119 Co2 24 meq/L 22-30 [facility] ([facility]) FASTING~.~.~E119 Glucose 206 mg/dL 65-110 Above high normal MED[facility] ([facility]) FASTING~.~.~E119 BUN 20 mg/dL 7-21 [facility] ([facility]) FASTING~.~.~E119 Creatinine 0.8 mg/dL 0.7-1.5 MED[facility] ([facility]) FASTING~.~.~E119 BUN/Creat 25 8-27 [facility] ([facility]) FASTING~.~.~E119 Albumin 4.4 g/dL 3.9-5.0 [facility] ([facility]) FASTING~.~.~E119 Total Protein 7.6 g/dL 6.3-8.2 [facility] ([facility]) FASTING~.~.~E119 Globulin 3.2 GM/DL 2.4-3.2 [facility] ([facility]) FASTING~.~.~E119 A/G Ratio 1.4 0.8-2.0 [facility] ([facility]) FASTING~.~.~E119 Calcium 9.7 mg/dL 8.4-10.2 [facility] ([facility]) FASTING~.~.~E119 Alkaline Phos 91 U/L 38-126 [facility] ([facility]) FASTING~.~.~E119 Sgot/Ast 14 U/L 5-40 [facility] ([facility]) FASTING~.~.~E119 Total Bili <0.7 mg/dL 0.2-1.3 MED[facility] ([facility]) FASTING~.~.~E119 Age 59 yrs MEDENT ([facility]) FASTING~.~.~E119 SGPT/Alt 15 U/L 7-56 [facility] ([facility]) FASTING~.~.~E119 Anion Gap 14.0 mmol/L 8.0-16.0 [facility] ([facility]) FASTING~.~.~E119 Non-Aa GFR >60 mL/min [facility] FASTING~.~.~E119 Afr Amer GFR >60 mL/min MED[facility] ([facility]) FASTING~.~.~E119 ID Date Data Source [id number] 11/04/2019 08:48:00 AM EST MEDENT ([facility]) Name Value Range Interpretation Code Description Data Tyesha rce(s) Supporting Document(s) Hemoglobin A1c/Hemoglobin.total in Blood 8.0 % 4.4-6.1 Above high normal MED[facility] ([facility]) FASTING~.~.~E119 ID Date Data Source [id number] 11/04/2019 08:48:00 AM EST MEDENT ([facility]) Name Value Range Interpretation Code Description Data Tyesha rce(s) Supporting Document(s) CBC W/Automated Diff (SEE NOTE) MED[facility] ( [facility]) FASTING~.~.~E119 Hemoglobin 16.0 g/dL 14.0-16.0 MED[facility] ([facility]) FASTING~.~.~E119 RBC 5.31 10^6/uL 4.50-6.30 [facility] FASTING~.~.~E119 WBC 6.6 10^3/uL 4.2-11.0 [facility] ([facility]) FASTING~.~.~E119 Hematocrit 48.2 % 41.0-51.0 MEDENT ([facility]) FASTING~.~.~E119 MCH 30.1 pg 27.0-34.0 [facility] ([facility]) FASTING~.~.~E119 MCV 90.8 fL 80.0-94.0 [facility] ([facility]) FASTING~.~.~E119 RDW 12.6 % 11.5-14.8 [facility] ([facility]) FASTING~.~.~E119 Platelets 309 10^3/uL 150-450 MED[facility] ([facility]) FASTING~.~.~E119 MCHC 33.2 g/dL 31.0-36.0 [facility] ([facility]) FASTING~.~.~E119 MPV 9.4 fL 7.4-10.4 [facility] ([facility]) FASTING~.~.~E119 Neut 59.1 % 37.0-80.0 [facility] ([facility]) FASTING~.~.~E119 [place] 6.6 % 3.0-8.0 [facility] ([facility]) FASTING~.~.~E119 Eos 1.5 % 0.0-7.0 [facility] ([facility]) FASTING~.~.~E119 Lymph 31.7 % 25.0-40.0 [facility] ([facility]) FASTING~.~.~E119 %Ig 0.2 % 0.0-0.0 Above high normal MEDENT ([facility]) FASTING~.~.~E119 Baso 0.9 % 0.0-2.0 [facility] ([facility]) FASTING~.~.~E119 %NRBC 0.0 % 0.0-0.0 [facility] ([facility]) FASTING~.~.~E119 #Neut 3.91 10^3/uL 2.00-6.90 [facility] ([facility]) FASTING~.~.~E119 #Lymph 2.10 10^3/uL 0.60-3.40 [facility] ([facility]) FASTING~.~.~E119 #[place] 0.44 10^3/uL 0.00-0.90 [facility] ([facility]) FASTING~.~.~E119 #Ig 0.01 10^3/uL 0.00-0.10 [facility] ([facility]) FASTING~.~.~E119 #Baso 0.06 10^3/uL 0.00-0.20 [facility] ([facility]) FASTING~.~.~E119 #Eos 0.10 10^3/uL 0.00-0.70 [facility] ([facility]) FASTING~.~.~E119 #NRBC 0.00 10^3/uL 0.00-0.00 [facility] ([facility]) FASTING~.~.~E119 RBC Morph NOT INDICATED MED[facility] ([facility]) FASTING~.~.~E119 Manual Diff NOT INDICATED MEDENT ([facility]) FASTING~.~.~E119 ID Date Data Source [id number] 11/15/2019 03:41:00 PM EST [facility] Name Value Range Interpretation Code Description Data Tyesha rce(s) Supporting Document(s) Amphetamines [Presence] in Urine by Screen method Negative ng/mL Cu vowi=4972 [facility] Amphetamine test includes Amphetamine an d Methamphetamine. Barbiturates [Presence] in Urine by Screen method Negative ng/mL Cuto tg=459 [facility] Benzodiazepines [Presence] in Urine Negative ng/mL Ejrvsi=496 [facility] See Final Results Benzoylecgonine [Presence] in Urine Negative ng/mL Ageslc=365 [facility] Opiates [Presence] in Urine Negative ng/mL Ytuheh=424 [facility] Opiate test includes Codeine and Morphin e only. Phencyclidine [Presence] in Urine Negative ng/mL Cutoff=25 [facility] Positive Carboxy tetrahydrocannabinol [Mass/volume] in Urine 90 ng/mL Cutoff =15 [facility] ID Date Data Source [id number] 11/07/2019 08:06:00 AM EST [facility] Name Value Range Interpretation Code Description Data Tyesha rce(s) Supporting Document(s) Prostate specific Ag [Mass/volume] in Serum or Plasma 0.7 ng/mL 0.0- 4.0 [facility] [employer] ECLIA methodology.According to the [place] [employer], Serum PSA shoulddecrease and remain at undetectable levels after radicalprostatectomy. The AUA defines biochemical recurrence as an initialPSA value 0.2 ng/mL or greater followed by a subsequent confirmatoryPSA value 0.2 ng/mL or greater.Values obtained with different assay methods or kits cannot be usedinterchangeably. Results cannot be interpreted as absolute evidenceof the presence or absence of malignant disease. Reflex Criteria COMMENT [facility] The percent free PSA is performed on a r eflex basis only when thetotal PSA is between 4.0 and 10.0 ng/mL. ID Date Data Source [id number] 11/04/2019 03:01:00 PM [facility] Name Value Range Interpretation Code Description Data Tyesha rce(s) Supporting Document(s) Hemoglobin A1c/Hemoglobin.total in Blood 8.0 % 4.4 - 6.1 H [facility] {A1]{HB] ID Date Data Source [id number] 11/04/2019 02:07:00 PM [facility] Name Value Range Interpretation Code Description Data Tyesha rce(s) Supporting Document(s) BNP 17 PG[facility]ML 0 - 125 [facility] Data Source [id number] 11/04/2019 02:07:00 PM [facility] Name Value Range Interpretation Code Description Data Tyesha rce(s) Supporting Document(s) Calcidiol [Moles/volume] in Serum or Plasma 23 NG/ML [facility] VITAMIN-D(2 5HYDROXY) Deficiency: <=20 ng/ml Insufficiency: 21-29 ng/ml Preferred level: => 30 ng/ml ID Date Data Source [id number] 11/04/2019 02:07:00 PM [facility] Name Value Range Interpretation Code Description Data Tyesha rce(s) Supporting Document(s) Thyroxine (T4) free index in Serum or Plasma by calculation 0.94 NG/DL 0.93 - 1.70 [facility] ID Date Data Source [id number] 11/04/2019 02:07:00 PM [facility] Name Value Range Interpretation Code Description Data Tyesha rce(s) Supporting Document(s) Thyrotropin [Units/volume] in Serum or Plasma by Detec tion limit <= 0.05 mIU/L 3.22 uIU/mL 0.47 - 5.01 [facility] ID Date Data Source [id number] 11/04/2019 01:59:00 PM [facility] Name Value Range Interpretation Code Description Data Tyesha rce(s) Supporting Document(s) [facility] LIPID PAN[facility] Cholesterol [Mass/volume] in Serum or Plasma 258 MG/DL 131 - 200 H [facility] Deprecated Triglyceride [Mass/volume] in Serum or Plasma 127 MG/DL 3 5 - 160 [facility] HDL 49 MG/DL 29 - 86 [facility] Cholesterol in LDL/Cholesterol in HDL [Mass Ratio] in Serum or Plasma 199 mg/dL 65 - 175 H [facility] Cholesterol.total/Cholesterol in HDL [Mass Ratio] in Serum o r Plasma 5.3 3.4 - 4.9 H [facility] LDL/HDL 4.06 1.00 - 3.55 H [facility] ital CVE RISK CHOL/HDL LDL/HDLMEN: 1/2 AVERAGE 3.43 1.00 AVERAGE 4.97 3.55 2X AVERAGE 9.55 6.25 3X AVERAGE 23.99 7.99WOMEN: 1/2 AVERAGE 3.27 1.47 AVERAGE 4.44 3.22 2X AVERAGE 7.05 5.03 3X AVERAGE 11.04 6.14 ID Date Data Source [id number] 11/04/2019 01:59:00 PM EST [facility] Name Value Range Interpretation Code Description Data Tyesha rce(s) Supporting Document(s) COMPREHENSIVE METABOLIC PANEL [facility] COMPREHENSIVE METABOLIC PANEL Sodium [Moles/volume] in Serum or Plasma 139 mEq/L 134 - 153 [facility] Potassium [Moles/volume] in Serum or Plasma 4.6 mEq/L 3.6 - 5.0 [facility] Chloride [Moles/volume] in Serum or Plasma 101 mEq/L 98 - 107 [facility] Carbon dioxide, total [Moles/volume] in Serum or Plasma 24 MEQ/L 22 - 30 [facility] Glucose [Mass/volume] in Serum or Plasma 206 MG/DL 65 - 110 H [facility] BUN 20 MG/DL 7 - 21 [facility] Creatinine [Mass/volume] in Serum or Plasma 0.8 MG/DL 0.7 - 1.5 [facility] BUN/CREAT 25 8 - 27 [facility] Protein [Mass/volume] in Serum or Plasma 7.6 G/DL 6.3 - 8.2 [facility] Albumin [Mass/volume] in Serum or Plasma 4.4 G/DL 3.9 - 5.0 [facility] Globulin [Mass/volume] in Serum by calculation 3.2 GM/DL 2.4 - 3.2 [facility] A/G RATIO 1.4 0.8 - 2.0 [facility] al Calcium [Mass/volume] in Serum or Plasma 9.7 MG/DL 8.4 - 10.2 [facility] Bilirubin.total [Mass/volume] in Serum or Plasma <0.7 MG/DL 0.2 - 1.3 [facility] Alkaline phosphatase [Enzymatic activity/volume] in Serum or Plasma 91 U/L 38 - 126 [facility] Aspartate aminotransferase [Enzymatic activity/volume] in Serum or Plasma 14 U/L 5 - 40 [facility] Alanine aminotransferase [Enzymatic activity/volume] in Seru m or Plasma 15 U/L 7 - 56 [facility] Anion gap 3 in Serum or Plasma 14.0 mmol/L 8.0 - 16.0 [facility] AGE [address] [facility] al NON-AA GFR >60 mL/min [facility] ital AFR AMER GFR >60 mL/min [facility] Male GFR In terprentation [...] >32 mL/min Normal ID Date Data Source [id number] 11/04/2019 01:34:00 PM EST [facility] Name Value Range Interpretation Code Description Data Tyesha rce(s) Supporting Document(s) [facility] URINALYS[facility] SOURCE R [facility] al COLOR yellow NORMAL: Yellow [facility] CLARITY clear NORMAL: Clear [facility] Specific gravity of Urine by Test strip 1.025 1.001 - 1.030 [facility] pH 5 5 - 9 [facility] Glucose [Mass/volume] in Urine by Test strip 250 NORMAL: Negat mireille A [facility] Bilirubin.total [Presence] in Urine by Test strip NEG NORMAL: Negative [facility] Ketones [Presence] in Urine by Test strip NEG NORMAL: Negative [facility] Protein [Mass/volume] in Urine by Test strip 15 NORMAL: Negat [facility] Nitrite [Presence] in Urine by Test strip NEG NORMAL: Negative [facility] BLOOD NEG NORMAL: Negative [facility] Leukocyte esterase [Presence] in Urine by Test strip NEG NEREIDA L: Negative [facility] Urobilinogen [Mass/volume] in Urine by Test strip NOR less sunny n 1.0 mg/dL [facility] MICROSCOPIC See Below [facility] ital EPITHELIAL FEW NORMAL: NONE SEEN [facility] ID Date Data Source [id number] 11/04/2019 01:29:00 PM EST [facility] Name Value Range Interpretation Code Description Data Tyesha rce(s) Supporting Document(s) CBC W/AUTOMATED DIFF [facility] COMPLETE BLOOD COUNT Leukocytes [#/volume] in Blood by Automated count 6.6 10^3/uL 4.2 - 1 1.0 [facility] Erythrocytes [#/volume] in Blood by Automated count 5.31 10^6/uL 4. 50 - 6.30 [facility] Hemoglobin [Mass/volume] in Blood 16.0 g/dL 14.0 - 16.0 [facility] Hematocrit [Volume Fraction] of Blood by Automated count 48.2 % 4 1.0 - 51.0 [facility] Erythrocyte mean corpuscular volume [Entitic volume] by Auto mated count 90.8 fL 80.0 - 94.0 [facility] Erythrocyte mean corpuscular hemoglobin [Entitic mass] by Automated count 30.1 pg 27.0 - 34.0 [facility] Erythrocyte mean corpuscular hemoglobin concentration [Mass/volume] by Automated count 33.2 g/dL 31.0 - 36.0 [facility] Erythrocyte distribution width [Ratio] by Automated count 12.6 % 11.5 - 14.8 [facility] Platelets [#/volume] in Blood by Automated count 309 10^3/uL 150 - 45 0 [facility] Platelet mean volume [Entitic volume] in Blood by Automated count 9.4 fL 7.4 - 10.4 [facility] Neutrophils/100 leukocytes in Blood by Automated count 59.1 % 37. 0 - 80.0 [facility] Lymphocytes/100 leukocytes in Blood by Manual count 31.7 % 25.0 - 40.0 [facility] Monocytes/100 leukocytes in Blood by Automated count 6.6 % 3.0 - 8.0 [facility] Eosinophils/100 leukocytes in Blood by Automated count 1.5 % 0.0 - 7.0 [facility] Basophils/100 leukocytes in Blood by Automated count 0.9 % 0.0 - 2.0 [facility] %IG 0.2 % 0.0 - 0.0 [facility] %NRBC 0.0 % 0.0 - 0.0 [facility] al Neutrophils [#/volume] in Blood by Automated count 3.91 10^3/uL 2.00 - 6.90 [facility] Lymphocytes [#/volume] in Blood by Automated count 2.10 10^3/uL 0.60 - 3.40 [facility] Monocytes [#/volume] in Blood by Automated count 0.44 10^3/uL 0.00 - 0.90 [facility] Eosinophils [#/volume] in Blood by Automated count 0.10 10^3/uL 0.00 - 0.70 [facility] Basophils [#/volume] in Blood by Automated count 0.06 10^3/uL 0.00 - 0.20 [facility] #IG 0.01 10^3/uL 0.00 - 0.10 [facility] ospital #NRBC 0.00 10^3/uL 0.00 - 0.00 [facility] MANUAL DIFF NOT INDICATED [facility] RBC MORPH NOT INDICATED [facility] Procedure Social History Code Duration Value Status Description Data Source(s ) Smoking 05/14/2020 12:00:00 AM EDT Current Smoker completed Curre nt Smoker eCW1 ([facility]) Smoking 05/14/2020 12:00:00 AM EDT Current Smoker completed Curre nt Smoker eCW1 ([facility]) Vital Signs ID Date Data Source UNK Name Value Range Interpretation Code Description Data Source(s) Body surface area 2.24 m2 2.24 m2 [facility] ([facility]) Body mass index (BMI) [Ratio] 28.9 kg/m2 28.9 k g/m2 [facility] ([facility]) Body height 73 [in_i] 73 [in_i] [facility] 6'1" Body weight 99.338 kg 99.338 kg [facility] ([facility]) Body weight 219.00 [lb_av] 219.00 [lb_av] MEDEN T ([facility]) Oxygen saturation in Arterial blood by Pulse oximetry 97 % 97 % [facility] Respiratory rate 16 /min 16 /min [facility] Body temperature 97.8 [degF] 97.8 [degF] [facility] Heart rate 57 /min 57 /min [facility] Diastolic blood pressure 62 mm[Hg] 62 mm[Hg] [facility] Systolic blood pressure 118 mm[Hg] 118 mm[Hg] M EDENT ([facility])
[2020-12-22 22:23] VITALS: BP 145/75
[2020-12-22] MEDS ORDERED: FLOM0.4C39 PO (23:28)
[2020-12-23 00:22] VITALS: BP 145/75
[2020-12-23 06:24] VITALS: BP 152/74
[2020-12-23] MEDS: HumaLOG INSULIN (NovoLOG) PER UNIT SC SCH ×3 (06:51→17:19)
[2020-12-23] MEDS ORDERED: HumaLOG INSULIN (NovoLOG) PER UNIT SC SCH ×2 (07:30→21:00)
[2020-12-23 08:00] VITALS: BP 152/72
[2020-12-23] MEDS: MULTIVITAMINS/MINERALS THERAP 1 TAB PO SCH (08:45)
[2020-12-23] MEDS: FOLIC ACID 1 MG TAB PO SCH (08:45)
[2020-12-23] MEDS: THIAMINE 100 MG TAB PO SCH ×2 (08:45→21:11)
[2020-12-23] MEDS: ASPIRIN 81 MG ENTERIC TAB PO SCH (08:45)
[2020-12-23] MEDS: TAMSULOSIN 0.4 MG CAP PO SCH (08:45)
[2020-12-23] MEDS ORDERED: FLUBLOK(EGG FREE)(QUAD)INFLUENZA VACC 0.5ML SYRINGE 18YRS & OLDER IM ONE (09:00)
[2020-12-23] MEDS ORDERED: traZODone 50 MG TAB PO PRN (11:00)
[2020-12-23] MEDS: VENLAFAXINE **XR** 37.5 MG CAPSULE PO SCH (11:50)
[2020-12-23] MEDS: FLUoxetine 20 MG CAP PO SCH (11:50)
[2020-12-23 14:00] VITALS: BP 134/96
--- NOTE | 2020-12-23 15:55 | MHHPE ---
[facility] HISTORY AND PHYSICAL DATE OF ADMISSION: 12/22/2020 HISTORY OF PRESENT ILLNESS: I actually saw this patient on consultation on 12/21/2020. He had been admitted to the Medical Service after a self-inflicted nail gun injury to his abdomen. He had also self inflicted some lacerations on his wrists. He was intoxicated with crack cocaine and became depressed. He started to feel that maybe his family was better off without him, and that is why he tried to kill himself. He states that he waited a couple of hours before he called for help. He states that he uses drugs intermittently, but when he uses them he does tend to get depressed and last year he was admitted on 03/05/2020 to the Psychiatric Unit after he had done the same thing. He was intoxicated and shot himself with a nail gun. He went to an inpatient rehabilitation program from there, and he states he did good for 2 months after that and then he relapsed on and off with using drugs again. Today the patient I think is really minimizing his symptoms. He tells me that he is not suicidal. He realizes he needs to get help for his substance abuse. In addition, his primary has been prescribing Effexor for him and he states he has been trying to get off of it, but he has withdrawal when he tries to get off of it. He wants to get off of it because he states that when he takes it, he does not feel like he has any amount of motivation to do much. PAST PSYCHIATRIC HISTORY: He had another hospitalization in 2017. FAMILY HISTORY: His father committed suicide and so did his younger brother when the patient was 15. He stated he actually saw both of them when they killed themselves. There is a history of alcohol abuse in the family. PAST MEDICAL HISTORY: The patient's past medical history is significant for: 1. History of migraines. 2. Coronary artery disease. 3. Hypercholesterolemia. ABUSE HISTORY: He denies any history of any physical or sexual abuse. SUBSTANCE ABUSE: He has trouble with cocaine and at some point he was having trouble with alcohol too. PHYSICAL EXAMINATION: VITAL SIGNS: Blood pressure 152/74, pulse 55, respirations 14. GENERAL APPEARANCE: He did not appear to be in any apparent distress. NEUROMUSCULAR SYSTEM: The patient's gait is normal and there are no involuntary movements noted. All other systems were reviewed and found to be negative. MENTAL STATUS EXAMINATION: The patient is alert and oriented times three, pleasant and cooperative, verbally spontaneous. Eye contact is good. There is no formal thought disorder noted. His mood is depressed. Affect is full range and appropriate. He is not psychotic, suicidal or homicidal. Concentration and memory are good. Insight and judgment are good. DIAGNOSIS: 1. Unspecified depressive disorder. 2. Cocaine use disorder. 3. Alcohol use disorder, in remission. 4. Angiolytic use disorder, severe, in remission. TREATMENT PLAN: At this point the patient is having some depression. He has tried to get off of the Effexor but has side effects and does not like the effects of the Effexor, so we will instead start him on Prozac 20 mg, decrease the Effexor to 37.5 mg and start him on Trazodone 50 mg for sleep. We will monitor for further elevation, stabilization of his mood and continue resolution of suicidal ideation.
[2020-12-23 17:31] VITALS: BP 134/96
[2020-12-23 17:48] VITALS: BP 134/96
[2020-12-23] MEDS ORDERED: lisinopriL 10 MG TAB PO SCH (18:00)
[2020-12-23] MEDS ORDERED: VENLAFAXINE **XR** 75MG CAPSULE PO SCH (18:00)
[2020-12-24 06:39] VITALS: BP 132/73
[2020-12-24 06:40] VITALS: BP 132/73
[2020-12-24] MEDS: HumaLOG INSULIN (NovoLOG) PER UNIT SC SCH (07:24)
[2020-12-24] MEDS: ASPIRIN 81 MG ENTERIC TAB PO SCH (08:36)
[2020-12-24] MEDS: FOLIC ACID 1 MG TAB PO SCH (08:36)
[2020-12-24] MEDS: VENLAFAXINE **XR** 37.5 MG CAPSULE PO SCH (08:36)
[2020-12-24] MEDS: TAMSULOSIN 0.4 MG CAP PO SCH (08:36)
[2020-12-24] MEDS: FLUoxetine 20 MG CAP PO SCH (08:36)
[2020-12-24] MEDS: MULTIVITAMINS/MINERALS THERAP 1 TAB PO SCH (08:36)
[2020-12-24] MEDS: THIAMINE 100 MG TAB PO SCH (08:36)
--- NOTE | 2020-12-24 10:46 | HPE ---
[facility] HISTORY AND PHYSICAL DATE OF ADMISSION: 12/22/2020 ADMITTING DIAGNOSIS: This is a hospitalist-generated inpatient Mental Health Unit history and physical on Felipe Xavier who was admitted to the Mental Health Unit after self-afflicted nail gun wound to the epigastric area and a laceration to his left wrist. He attempted suicide by shooting himself with a nail gun, underwent laparoscopic removal of a nail from the liver. He had his left wrist laceration Dermabonded. PAST MEDICAL HISTORY: Primary care provider is Nya Almodovar NP at [facility]. She saw the patient just once on 05/14/2020, noted a history of type-2 diabetes managed with low-dose Trulicity alone, coronary artery disease, hyperlipidemia, hypertension, migraine headaches, anxiety problems, history of cocaine addiction, and tobacco abuse. SURGICAL HISTORY: Appendectomy at age 12, coronary artery stents unspecified vessels 2015 in [place], carpal tunnel surgery on the right side in 2016. He had a foreign body removed from his abdomen 02/2020. FAMILY HISTORY: Father committed suicide. Mother is still living. He has a brother with a history of early from coronary disease, another brother committed suicide, another sister with diabetes. SOCIAL HISTORY: Smokes a pack or two of cigarettes a day, cocaine and marijuana use noted. with one child. 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 ALLERGIES: None known. CURRENT MEDICATIONS: None. He has not been taking his prescribed medications. Looking through the records, the last time that most of these medications were prescribed was 06/07. We did add Pravastatin refilled 10/08. REVIEW OF SYSTEMS: No chest pain, shortness of breath, polyuria, polydipsia. PHYSICAL EXAMINATION: VITAL SIGNS: As listed. HEENT: Unremarkable. LUNGS: Clear. HEART: Regular rate and rhythm without murmur. ABDOMEN: Soft, nontender. No masses. EXTREMITIES: No peripheral edema. Good distal pulses. His left wrist laceration is healing well, no redness, drainage. Wound is approximated well. LABS: I reviewed his medical admission proximate to his [facility] transfer. His blood sugar was well controlled essentially without any medication. He received a total of 6 units of insulin during the entire medical hospitalization. IMPRESSION: 1. Type-2 diabetes. His blood sugar is well controlled without any medication. He uses Trulicity at home. It is not on the hospital formulary. He can anticipate a prolonged hospitalization. Someone could bring it in from home. At this point I would discontinue fingerstick blood sugars with coverage (he is refusing them anyway) and just put him on a consistent carbohydrate diet. 2. Hyperlipidemia. Dietary treatment advised. Could restart statin therapy with his primary care provider. 3. Hypertension. He is on Lisinopril 10 mg daily which we will continue. 4. Left wrist laceration. This is healing well and does not require anything beyond routine wound care.
[2020-12-24 14:00] VITALS: BP 130/70
[2020-12-24] MEDS ORDERED: FLUO20CA22 PO (15:39)
[2020-12-24] MEDS ORDERED: VENL37.598 PO (15:39)
[2020-12-24] MEDS ORDERED: TRAZ-252 PO (15:39)
--- NOTE | 2020-12-25 10:33 | MHDS ---
[facility] DISCHARGE SUMMARY DATE OF ADMISSION: 12/22/2020 DATE OF DISCHARGE: 12/24/2020 HISTORY OF PRESENT ILLNESS: This patient was admitted on 12/22/20 actually he was a transfer from the medical floor where he had been admitted. He had tried to kill himself via a self inflicted nail gun injury to his abdomen and he had also inflicted some lacerations on his wrist. He was intoxicated with crack cocaine and admits he became depressed. He started to think that his family was better off without him. This is the second time that he does the same exact thing; in February, he was admitted to a psychiatric unit, he had also self inflicted an abdominal wound with a nail gun. Please refer to the Admission Note for further details on his past history and treatment. MEDICAL HISTORY: The patient as I said was transferred from the medical unit where he was treated for his self inflicted injury with a nail gun and he underwent laparoscopic removal of the nail from the liver. His left wrist laceration was Dermabonded. There was no acute medical problems except for a history of: 1. Type-2 diabetes. 2. Hyperlipidemia. 3. Hypertension. DIAGNOSES: 1. Unspecified depressive disorder. 2. Cocaine use disorder. 3. Alcohol use disorder in remission. 4. 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 HOSPITAL COURSE: The patient was admitted to the Psychiatric Unit and he admitted that he had been feeling depressed. He had been on Effexor prescribed by his primary care provider for awhile and he said he had been trying to get off of it for awhile because he did not like the effects of it, it made him feel like he had no desire to do anything he said, but he says he was having a lot of withdrawal every time he tried to stop it. I cut the Effexor from 75 to 37.5 mg once a day and I started the patient on Prozac 20 mg once daily and so at the time of discharge he is to continue the Effexor XR 37.5 mg for 2 more weeks and then discontinue it and then he is supposed to start or actually continue the Prozac 20 mg once daily. The patient participated in treatment and by the time of discharge he had continued to denying feeling suicidal all along. He felt that it was the fact that he was intoxicated on cocaine that led to his trying to kill himself. I did discuss with the patient that this is the second time that he did this self inflicted nail gun shooting into his abdomen. Patient acknowledged that he really needs to pursue substance abuse treatment and he was advised to go to [facility] and to show up any day at 7:30 in the morning because it is a first come first serve basis. Also he was referred for outpatient psychiatric treatment. Please look at the Help Desk Manager's Note for that. At the time of discharge he says his mood was better and he was denying any suicidal ideation.
== END 2020-12-24 16:52 | disposition home or self-care (01) | DRG 754 ==
LOC: M ED INP 21:37 → M PSY 22:27
PROVIDERS: ADMIT Psychiatry & Neurology Psychiatry; ATTEND Psychiatry & Neurology Psychiatry
DX: F32.9 Major depressive disorder, single episode, unspecified (principal); E11.9 Type 2 diabetes mellitus without complications; I10 Essential (primary) hypertension; F14.90 Cocaine use, unspecified, uncomplicated; E78.5 Hyperlipidemia, unspecified

== ENCOUNTER → 2020-12-27 | Outpatient (CLI) | payer MEDICAID ==
[~2020-12-27] MED LIST changes: +FLUO20CA22 PO; +LISI10TA22 PO; -LISI10TA4 PO; +TRAZ-252 PO; +VENL37.598 PO
== END ==
LOC: M OUTALCOH 07:52
PROVIDERS: ATTEND Psychiatry & Neurology Psychiatry
DX: F14.20 Cocaine dependence, uncomplicated (principal)

== ENCOUNTER → 2021-01-04 | Outpatient (REF) | payer OTHER ==
[2021-01-04 14:01] LABS: ALBUMIN 3.7 GM/DL (3.2-5.2); ALT/SGPT 22 U/L (12-78); BILIRUBIN,TOTAL 0.2 MG/DL (0.2-1.0); BLOOD UREA NITROGEN 24 MG/DL (7-18); CALCIUM LEVEL 9.6 MG/DL (8.8-10.2); CARBON DIOXIDE LEVEL 28 MEQ/L (21-32); CHLORIDE LEVEL 105 MEQ/L (98-107); CHOLESTEROL LEVEL 200 MG/DL (<200); CHOLESTEROL RISK RATIO 3.846 (<5); CREATININE FOR GFR 1.14 MG/DL (0.70-1.30); FREE T4 0.82 NG/DL (0.76-1.46); GLOMERULAR FILTRATION RATE > 60.0 (>49); GLUCOSE, FASTING 125 MG/DL (70-100); HDL CHOLESTEROL 52 MG/DL (>40); LDL CHOLESTEROL 127 MG/DL (<100); NON-HDL-C 148 MG/DL; POTASSIUM SERUM 4.6 MEQ/L (3.5-5.1); SODIUM LEVEL 139 MEQ/L (136-145); TOTAL 25(OH) VITAMIN D 41.1 NG/ML (30.0-100.0); TOTAL PROTEIN 7.5 GM/DL (6.4-8.2); TRIGLYCERIDES LEVEL 107 MG/DL (<150)
[2021-01-04 14:03] LABS: HEMOGLOBIN A1c 6.6 %
[2021-01-04 14:20] LABS: MALB URINE SIEMENS 16.3 MG/L; MAU/CREAT RATIO 9.5 MCG/MG (0.0-30.0)
== END ==
LOC: M SFHCPLAZ 08:58
PROVIDERS: ATTEND Nurse Practitioner Family
DX: E78.2 Mixed hyperlipidemia (principal); I10 Essential (primary) hypertension; E11.9 Type 2 diabetes mellitus without complications; G43.109 Migraine with aura, not intractable, without status migrainosus

== ENCOUNTER 2021-01-13 16:00 | Outpatient (RCR) | payer MEDICAID | END 2021-01-16 | LOC: M OUTALCOH 16:00 | PROVIDERS: ATTEND Psychiatry & Neurology Psychiatry | DX: F14.20 Cocaine dependence, uncomplicated (principal); F12.10 Cannabis abuse, uncomplicated; F17.200 Nicotine dependence, unspecified, uncomplicated ==

== ENCOUNTER → 2021-02-01 | Outpatient (REF) | payer OTHER ==
[2021-02-01 10:51] LABS: APPEARANCE, URINE CLEAR (CLEAR); BACTERIA, URINE AUTO NEGATIVE (NEGATIVE); BILIRUBIN, URINE AUTO NEGATIVE (NEGATIVE); BLOOD, URINE BLOOD NEGATIVE (NEGATIVE); COLOR, URINE YELLOW (YELLOW); GLUCOSE, URINE (UA) AUTO NEGATIVE (NEGATIVE); KETONE, URINE AUTO TRACE mg/dL (NEGATIVE); LEUKOCYTE ESTERASE, URINE AUTO NEGATIVE (NEGATIVE); MUCUS, URINE SMALL (NEGATIVE); NITRITE, URINE AUTO NEGATIVE (NEGATIVE); PROTEIN, URINE AUTO 1+ mg/dL (NEGATIVE); RBC, URINE AUTO 2 /HPF (0-3); SQUAMOUS EPITHELIAL CELL UR AU 0 /HPF (0-6); UROBILINOGEN, URINE AUTO 0.2 mg/dL (0.0-2.0); WBC, URINE AUTO 1 /HPF (0-3)
== END ==
LOC: M SFHCPLAZ 09:07
PROVIDERS: ATTEND Nurse Practitioner Family
DX: Z12.5 Encounter for screening for malignant neoplasm of prostate (principal); R39.9 Unspecified symptoms and signs involving the genitourinary system

== ENCOUNTER 2021-02-11 15:49 | Outpatient (RCR) | payer MEDICAID | END 2021-02-16 | LOC: M OUTALCOH 15:49 | PROVIDERS: ATTEND Psychiatry & Neurology Psychiatry | DX: F14.20 Cocaine dependence, uncomplicated (principal); F12.10 Cannabis abuse, uncomplicated; F17.200 Nicotine dependence, unspecified, uncomplicated ==

== ENCOUNTER 2021-03-15 08:00 | Outpatient (RCR) | payer MEDICAID | END 2021-03-18 | LOC: M OUTALCOH 08:00 | PROVIDERS: ATTEND Psychiatry & Neurology Psychiatry | DX: F14.20 Cocaine dependence, uncomplicated (principal); F12.10 Cannabis abuse, uncomplicated; F17.200 Nicotine dependence, unspecified, uncomplicated ==

== ENCOUNTER 2021-04-08 16:00 | Outpatient (RCR) | payer MEDICAID | END 2021-04-18 | LOC: M OUTALCOH 16:00 | PROVIDERS: ATTEND Psychiatry & Neurology Psychiatry | DX: F14.20 Cocaine dependence, uncomplicated (principal); F12.10 Cannabis abuse, uncomplicated; F17.200 Nicotine dependence, unspecified, uncomplicated ==

== ENCOUNTER 2021-05-13 16:00 | Outpatient (RCR) | payer MEDICAID ==
[~2021-05-13 16:00] MED LIST changes: +ERGO500029 PO; -VITA50005 PO
== END 2021-05-18 ==
LOC: M OUTALCOH 16:00
PROVIDERS: ATTEND Psychiatry & Neurology Psychiatry
DX: F14.20 Cocaine dependence, uncomplicated (principal); F12.10 Cannabis abuse, uncomplicated; F17.200 Nicotine dependence, unspecified, uncomplicated

== ENCOUNTER → 2021-06-07 | Outpatient (CLI) | payer OTHER ==
--- NOTE | 2021-06-07 10:50 | REP ---
INDICATION: NICOTINE DEPENDENCE. COMPARISON: CT 03/04/2020, 12/21/2020. TECHNIQUE: Low-dose lung screening CT protocol. FINDINGS: Of the lung frausto are well inflated. Some emphysematous changes in the mid and upper lung zones. Some minor dependent atelectatic changes deep sulci lower lobes. There is also minor atelectatic change in the inferior lingular segment anterior left lung base. Some curvilinear fibroatelectatic change anterior to the minor fissure in the right upper lobe and stable. No effusion, acute infiltrate, mass, pleural plaque or calcification of the pleura. Heart not grossly enlarged. Metallic foreign bodies in the upper abdomen on the 2 previous CTs have been removed. IMPRESSION: Lung rads category 1, negative. No evidence of malignancy. Negative examination. Patients with this category of examination have less than 1% chance of malignancy at the time of the examination. For patients at high risk of developing lung malignancy, annual low-dose screening CT recommended. <Electronically signed by Elkin Fontenot > 06/07/21 [id number]
== END ==
LOC: M RAD 09:01
PROVIDERS: ATTEND Nurse Practitioner Family
DX: Z12.2 Encounter for screening for malignant neoplasm of respiratory organs (principal); F17.218 Nicotine dependence, cigarettes, with other nicotine-induced disorders

== ENCOUNTER → 2021-08-15 | Outpatient (CLI) | payer OTHER ==
[2021-08-15 11:22] LABS: ALBUMIN 3.6 GM/DL (3.2-5.2); ALT/SGPT 21 U/L (12-78); BILIRUBIN,TOTAL 0.3 MG/DL (0.2-1.0); BLOOD UREA NITROGEN 21 MG/DL (7-18); CARBON DIOXIDE LEVEL 30 MEQ/L (21-32); CHLORIDE LEVEL 106 MEQ/L (98-107); CREATININE FOR GFR 1.06 MG/DL (0.70-1.30); GLOMERULAR FILTRATION RATE > 60.0 (>49); GLUCOSE, FASTING 101 MG/DL (70-100); POTASSIUM SERUM 4.5 MEQ/L (3.5-5.1); SODIUM LEVEL 139 MEQ/L (136-145)
[2021-08-15 12:36] LABS: HEMOGLOBIN A1c 6.5 %
== END ==
LOC: M PLALAB 08:16
PROVIDERS: ATTEND Nurse Practitioner Family
DX: E11.9 Type 2 diabetes mellitus without complications (principal)

== ENCOUNTER → 2022-05-03 | Outpatient (CLI) | payer OTHER ==
[2022-05-03 11:35] LABS: BASO # 0.1 10^3/uL (0.0-0.2); BASO % 0.9 % (0.0-1.0); EOS # 0.2 10^3/uL (0.0-0.5); EOS % 2.8 % (0.0-3.0); HEMATOCRIT 42.2 % (42.0-52.0); HEMOGLOBIN 13.5 g/dl (13.5-17.5); LYMPH # 2.2 10^3/uL (1.5-5.0); LYMPH % 31.4 % (24.0-44.0); MEAN CORPUSCULAR HEMOGLOBIN 29.8 pg (27.0-33.0); MEAN CORPUSCULAR VOLUME 93.2 fl (80.0-96.0); MONO # 0.5 10^3/uL (0.0-0.8); NEUTROPHILS % 57.6 % (36.0-66.0); PLATELET COUNT, AUTOMATED 284 10^3/uL (150-450); RED BLOOD COUNT 4.53 10^6/uL (4.30-6.10); WHITE BLOOD COUNT 6.9 10^3/uL (4.0-10.0)
[2022-05-03 12:12] LABS: ALBUMIN 3.5 GM/DL (3.2-5.2); ALT/SGPT 20 U/L (12-78); BILIRUBIN,TOTAL 0.2 MG/DL (0.2-1.0); BLOOD UREA NITROGEN 28 MG/DL (7-18); CALCIUM LEVEL 8.8 MG/DL (8.8-10.2); CARBON DIOXIDE LEVEL 29 MEQ/L (21-32); CHLORIDE LEVEL 109 MEQ/L (98-107); CHOLESTEROL LEVEL 155 MG/DL (<200); CHOLESTEROL RISK RATIO 4.189 (<5); CREATININE FOR GFR 1.22 MG/DL (0.70-1.30); GLOMERULAR FILTRATION RATE > 60.0 (>49); GLUCOSE, FASTING 106 MG/DL (70-100); HDL CHOLESTEROL 37 MG/DL (>40); LDL CHOLESTEROL 95 MG/DL (<100); NON-HDL-C 118 MG/DL; POTASSIUM SERUM 4.8 MEQ/L (3.5-5.1); SODIUM LEVEL 141 MEQ/L (136-145); TOTAL PROTEIN 7.1 GM/DL (6.4-8.2); TRIGLYCERIDES LEVEL 114 MG/DL (<150)
[2022-05-03 12:17] LABS: MALB URINE SIEMENS 45.3 MG/L; MAU/CREAT RATIO 15.7 MCG/MG (0.0-30.0)
[2022-05-03 12:24] LABS: TOTAL 25(OH) VITAMIN D 50.1 NG/ML (30.0-100.0)
[2022-05-03 12:31] LABS: HEMOGLOBIN A1c 6.7 %
== END ==
LOC: M PLALAB 08:44
PROVIDERS: ATTEND Nurse Practitioner Family
DX: E11.9 Type 2 diabetes mellitus without complications (principal); I10 Essential (primary) hypertension; E55.9 Vitamin D deficiency, unspecified; E78.2 Mixed hyperlipidemia; Z12.5 Encounter for screening for malignant neoplasm of prostate

== ENCOUNTER 2022-07-11 12:22 | Emergency (ER) | payer OTHER ==
[~2022-07-11] VITALS: Ht 185.4 cm; Wt 98.6 kg
[2022-07-11 12:24] VITALS: BP 141/80
[2022-07-11] MEDS ORDERED: ATOR80TA59 (12:33)
[2022-07-11] MEDS ORDERED: RIZA10TA58 (12:33)
[2022-07-11] MEDS ORDERED: MAXA10TA15 PO (12:33)
[2022-07-11] MEDS ORDERED: OMEP40CA5 (12:33)
== END 2022-07-11 15:17 | disposition left against medical advice (07) ==
LOC: M ED 12:22
DX: Z53.21 Procedure and treatment not carried out due to patient leaving prior to being seen by health care provider (principal)

== ENCOUNTER → 2022-08-21 | Outpatient (CLI) | payer OTHER ==
[~2022-08-21] MED LIST changes: +ASPI-226 PO; +IBUP80TA PO; +MAXA10TA15 PO; +OMEP40CA5 PO; +RIZA10TA58; +VENL75TA2 PO
== END ==
LOC: M LABSMTC 09:36
PROVIDERS: ATTEND Anesthesiology
DX: Z01.812 Encounter for preprocedural laboratory examination (principal); Z20.822 Contact with and (suspected) exposure to COVID-19

== ENCOUNTER 2022-08-24 12:31 | Day surgery (SDC) | payer OTHER ==
[~2022-08-24] VITALS: Ht 185.4 cm; Wt 97.1 kg
[~2022-08-24 12:31] MED LIST changes: +NS 1,000 ML IV ONE
[2022-08-24] MEDS ORDERED: propofoL 200 MG/20 ML VIAL As Ordered ONE (14:55)
[2022-08-24 15:41] VITALS: BP 121/69
== END 2022-08-24 15:43 | disposition home or self-care (01) ==
LOC: M OPP 12:31
PROVIDERS: ATTEND Internal Medicine Gastroenterology
DX: K44.9 Diaphragmatic hernia without obstruction or gangrene (principal); F45.8 Other somatoform disorders; R13.11 Dysphagia, oral phase; R13.12 Dysphagia, oropharyngeal phase; Z79.02 Long term (current) use of antithrombotics/antiplatelets; Z79.82 Long term (current) use of aspirin; Z79.84 Long term (current) use of oral hypoglycemic drugs; Z79.899 Other long term (current) drug therapy; I25.2 Old myocardial infarction; I10 Essential (primary) hypertension; E78.5 Hyperlipidemia, unspecified; E11.9 Type 2 diabetes mellitus without complications; G43.909 Migraine, unspecified, not intractable, without status migrainosus

== ENCOUNTER → 2022-12-11 | Outpatient (CLI) | payer OTHER ==
[~2022-12-11] MED LIST changes: -NS 1,000 ML IV ONE
[2022-12-11 12:15] LABS: BASO # 0.1 10^3/uL (0.0-0.2); BASO % 0.8 % (0.0-1.0); EOS # 0.2 10^3/uL (0.0-0.5); EOS % 3.1 % (0.0-3.0); HEMOGLOBIN 12.9 g/dl (13.5-17.5); LYMPH # 2.4 10^3/uL (1.5-5.0); LYMPH % 33.9 % (24.0-44.0); MEAN CORPUSCULAR HEMOGLOBIN 27.3 pg (27.0-33.0); MEAN CORPUSCULAR VOLUME 91.1 fl (80.0-96.0); MONO # 0.5 10^3/uL (0.0-0.8); MONO % 7.1 % (2.0-8.0); NEUTROPHILS # 3.9 10^3/uL (1.5-8.5); NEUTROPHILS % 54.8 % (36.0-66.0); PLATELET COUNT, AUTOMATED 264 10^3/uL (150-450); RED BLOOD COUNT 4.72 10^6/uL (4.30-6.10); WHITE BLOOD COUNT 7.1 10^3/uL (4.0-10.0)
[2022-12-11 12:33] LABS: CREATININE, URINE 176.6 MG/DL; MAU/CREAT RATIO 10.7 MCG/MG (0.0-30.0)
[2022-12-11 12:37] LABS: ALBUMIN 3.5 G/DL (3.2-5.2); ALKALINE PHOSPHATASE 73 U/L (46-116); ALT/SGPT 13 U/L (7.0-40); AST/SGOT 14 U/L (<34); BILIRUBIN,TOTAL 0.2 MG/DL (0.3-1.2); BLOOD UREA NITROGEN 22 MG/DL (9-23); CALCIUM LEVEL 9.3 MG/DL (8.3-10.6); CARBON DIOXIDE LEVEL 27 MMOL/L (20-31); CHLORIDE LEVEL 106 MMOL/L (98-107); CHOLESTEROL LEVEL 145 MG/DL (<200); CHOLESTEROL RISK RATIO 3.69 (<5); CREATININE FOR GFR 0.85 MG/DL (0.70-1.30); GLOMERULAR FILTRATION RATE > 60.0 (>49); GLUCOSE, FASTING 121 MG/DL (74-106); HDL CHOLESTEROL 39.2 MG/DL (>40); NON-HDL-C 106 MG/DL; POTASSIUM SERUM 4.6 MMOL/L (3.5-5.1); SODIUM LEVEL 139 MMOL/L (136-145); TOTAL PROTEIN 6.8 G/DL (5.7-8.2); TRIGLYCERIDES LEVEL 99 MG/DL (<150)
[2022-12-11 12:40] LABS: HEMOGLOBIN A1c 6.8 % (4.0-6.0)
== END ==
LOC: M PLALAB 07:51
PROVIDERS: ATTEND Nurse Practitioner Family
DX: E11.9 Type 2 diabetes mellitus without complications (principal); E78.2 Mixed hyperlipidemia; I10 Essential (primary) hypertension

== ENCOUNTER → 2023-02-27 | Outpatient (CLI) | payer OTHER ==
[2023-02-27 17:27] LABS: BASO # 0.1 10^3/uL (0.0-0.2); EOS # 0.2 10^3/uL (0.0-0.5); EOS % 2.3 % (0.0-3.0); HEMATOCRIT 37.8 % (42.0-52.0); HEMOGLOBIN 11.9 g/dl (13.5-17.5); LYMPH # 2.3 10^3/uL (1.5-5.0); LYMPH % 32.9 % (24.0-44.0); MEAN CORPUSCULAR HEMOGLOBIN 27.1 pg (27.0-33.0); MEAN CORPUSCULAR HGB CONC 31.5 g/dl (32.0-36.5); MEAN CORPUSCULAR VOLUME 86.1 fl (80.0-96.0); MONO # 0.5 10^3/uL (0.0-0.8); MONO % 7.7 % (2.0-8.0); NEUTROPHILS # 3.9 10^3/uL (1.5-8.5); NEUTROPHILS % 55.8 % (36.0-66.0); PLATELET COUNT, AUTOMATED 303 10^3/uL (150-450); RED BLOOD COUNT 4.39 10^6/uL (4.30-6.10)
[2023-02-27 17:35] LABS: ALBUMIN 3.7 G/DL (3.2-5.2); ALKALINE PHOSPHATASE 74 U/L (46-116); ALT/SGPT 15 U/L (7.0-40); AST/SGOT 16 U/L (<34); BILIRUBIN,TOTAL 0.3 MG/DL (0.3-1.2); BLOOD UREA NITROGEN 23 MG/DL (9-23); CALCIUM LEVEL 9.1 MG/DL (8.3-10.6); CARBON DIOXIDE LEVEL 28 MMOL/L (20-31); CHLORIDE LEVEL 104 MMOL/L (98-107); CREATININE FOR GFR 0.84 MG/DL (0.70-1.30); GLOMERULAR FILTRATION RATE > 60.0 (>49); GLUCOSE, FASTING 216 MG/DL (74-106); SODIUM LEVEL 137 MMOL/L (136-145); TOTAL PROTEIN 6.7 G/DL (5.7-8.2)
== END ==
LOC: M PLALAB 14:43
PROVIDERS: ATTEND Family Medicine
DX: Z01.810 Encounter for preprocedural cardiovascular examination (principal)

== ENCOUNTER → 2023-05-16 | Outpatient (CLI) | payer OTHER ==
[2023-05-16 10:46] LABS: BASO # 0.1 10^3/uL (0.0-0.2); EOS # 0.2 10^3/uL (0.0-0.5); EOS % 2.5 % (0.0-3.0); HEMATOCRIT 39.1 % (42.0-52.0); HEMOGLOBIN 11.9 g/dl (13.5-17.5); LYMPH # 2.2 10^3/uL (1.5-5.0); LYMPH % 31.1 % (24.0-44.0); MEAN CORPUSCULAR HEMOGLOBIN 26.5 pg (27.0-33.0); MEAN CORPUSCULAR HGB CONC 30.4 g/dl (32.0-36.5); MEAN CORPUSCULAR VOLUME 87.1 fl (80.0-96.0); MONO # 0.5 10^3/uL (0.0-0.8); MONO % 6.6 % (2.0-8.0); NEUTROPHILS # 4.2 10^3/uL (1.5-8.5); NEUTROPHILS % 58.5 % (36.0-66.0); PLATELET COUNT, AUTOMATED 294 10^3/uL (150-450); RED BLOOD COUNT 4.49 10^6/uL (4.30-6.10); WHITE BLOOD COUNT 7.2 10^3/uL (4.0-10.0)
== END ==
LOC: M PLALAB 07:26
PROVIDERS: ATTEND Physician Assistant Medical
DX: Z12.11 Encounter for screening for malignant neoplasm of colon (principal)

== ENCOUNTER → 2023-12-04 | Outpatient (CLI) | payer OTHER ==
[~2023-12-04] MED LIST changes: -MAXA10TA15 PO; +RIZA10TA66 PO
[2023-12-04 10:12] LABS: BASO # 0.1 10^3/uL (0.0-0.2); BASO % 1.1 % (0.0-1.0); EOS # 0.2 10^3/uL (0.0-0.5); EOS % 2.1 % (0.0-3.0); HEMATOCRIT 39.9 % (42.0-52.0); HEMOGLOBIN 11.9 g/dl (13.5-17.5); LYMPH # 2.5 10^3/uL (1.5-5.0); MEAN CORPUSCULAR HEMOGLOBIN 25.3 pg (27.0-33.0); MEAN CORPUSCULAR HGB CONC 29.8 g/dl (32.0-36.5); MEAN CORPUSCULAR VOLUME 84.7 fl (80.0-96.0); MONO # 0.6 10^3/uL (0.0-0.8); MONO % 7.5 % (2.0-8.0); NEUTROPHILS # 4.1 10^3/uL (1.5-8.5); NEUTROPHILS % 55.2 % (36.0-66.0); PLATELET COUNT, AUTOMATED 304 10^3/uL (150-450); RED BLOOD COUNT 4.71 10^6/uL (4.30-6.10); WHITE BLOOD COUNT 7.5 10^3/uL (4.0-10.0)
[2023-12-04 10:36] LABS: CREATININE, URINE 198.2 MG/DL; MAU/CREAT RATIO 16.6 MCG/MG (0.0-30.0)
[2023-12-04 10:47] LABS: PSA SCREENING 0.91 NG/ML (< 4.00)
[2023-12-04 10:49] LABS: TOTAL IRON BINDING CAPACITY 371 UG/DL (250-425)
[2023-12-04 10:51] LABS: ALBUMIN 3.7 G/DL (3.2-5.2); ALKALINE PHOSPHATASE 73 U/L (46-116); ALT/SGPT 14 U/L (7.0-40); AST/SGOT 10 U/L (<34); BILIRUBIN,TOTAL 0.3 MG/DL (0.3-1.2); BLOOD UREA NITROGEN 23 MG/DL (9-23); CALCIUM LEVEL 9.2 MG/DL (8.3-10.6); CARBON DIOXIDE LEVEL 29 MMOL/L (20-31); CHLORIDE LEVEL 106 MMOL/L (98-107); CHOLESTEROL LEVEL 163 MG/DL (<200); CHOLESTEROL RISK RATIO 3.92 (<5); CREATININE FOR GFR 0.91 MG/DL (0.70-1.30); GLOMERULAR FILTRATION RATE > 60.0 (>49); GLUCOSE, FASTING 161 MG/DL (74-106); HDL CHOLESTEROL 41.5 MG/DL (>40); IRON (FE) 38 UG/DL (65-175); LDL CHOLESTEROL 92.5 MG/DL (<100); NON-HDL-C 121.5 MG/DL; PERCENT SATURATION 10.2 % (19.7-50.0); POTASSIUM SERUM 4.8 MMOL/L (3.5-5.1); SODIUM LEVEL 139 MMOL/L (136-145); TOTAL 25(OH) VITAMIN D 68.6 NG/ML (20.0-100.0); TOTAL PROTEIN 6.8 G/DL (5.7-8.2); TRIGLYCERIDES LEVEL 145 MG/DL (<150)
[2023-12-04 10:53] LABS: HEMOGLOBIN A1c 8.8 % (4.0-6.0)
== END ==
LOC: M PLALAB 07:14
PROVIDERS: ATTEND Nurse Practitioner Family
DX: E78.2 Mixed hyperlipidemia (principal); D64.9 Anemia, unspecified; E55.9 Vitamin D deficiency, unspecified; Z12.5 Encounter for screening for malignant neoplasm of prostate; E11.9 Type 2 diabetes mellitus without complications

== ENCOUNTER → 2023-12-07 | Outpatient (CLI) | payer OTHER | LOC: M RAD 08:58 | PROVIDERS: ATTEND Nurse Practitioner Family | DX: Z12.2 Encounter for screening for malignant neoplasm of respiratory organs (principal); F17.218 Nicotine dependence, cigarettes, with other nicotine-induced disorders ==

== ENCOUNTER → 2023-12-07 | Outpatient (CLI) | payer OTHER | LOC: M PLAIMG 09:30 → M PLALAB 09:30 | PROVIDERS: ATTEND Nurse Practitioner Family | DX: M47.816 Spondylosis without myelopathy or radiculopathy, lumbar region (principal) ==

== ENCOUNTER → 2024-02-08 | Outpatient (CLI) | payer OTHER | LOC: M PLARAD 13:07 | PROVIDERS: ATTEND Nurse Practitioner Family | DX: M47.26 Other spondylosis with radiculopathy, lumbar region (principal) ==

== ENCOUNTER → 2024-06-03 | Outpatient (CLI) | payer OTHER ==
[~2024-06-03] MED LIST changes: +FLUO-365 PO; -FLUO20CA22 PO
[2024-06-03 11:37] LABS: BASO % 0.7 % (0.0-1.0); EOS # 0.1 10^3/uL (0.0-0.5); HEMATOCRIT 40.6 % (42.0-52.0); HEMOGLOBIN 12.5 g/dl (13.5-17.5); LYMPH % 17.6 % (24.0-44.0); MEAN CORPUSCULAR HEMOGLOBIN 28.3 pg (27.0-33.0); MEAN CORPUSCULAR HGB CONC 30.8 g/dl (32.0-36.5); MEAN CORPUSCULAR VOLUME 91.9 fl (80.0-96.0); MONO # 0.6 10^3/uL (0.0-0.8); MONO % 9.8 % (2.0-8.0); NEUTROPHILS # 4.1 10^3/uL (1.5-8.5); NEUTROPHILS % 70.6 % (36.0-66.0); PLATELET COUNT, AUTOMATED 244 10^3/uL (150-450); RED BLOOD COUNT 4.42 10^6/uL (4.30-6.10); WHITE BLOOD COUNT 5.7 10^3/uL (4.0-10.0)
[2024-06-03 12:03] LABS: HEMOGLOBIN A1c 6.2 % (4.0-6.0)
[2024-06-03 12:06] LABS: ALBUMIN 3.6 G/DL (3.2-5.2); ALKALINE PHOSPHATASE 68 U/L (46-116); ALT/SGPT 16 U/L (7.0-40); AST/SGOT 13 U/L (<34); BILIRUBIN,TOTAL 0.3 MG/DL (0.3-1.2); BLOOD UREA NITROGEN 25 MG/DL (9-23); CALCIUM LEVEL 9.3 MG/DL (8.3-10.6); CARBON DIOXIDE LEVEL 30 MMOL/L (20-31); CHLORIDE LEVEL 107 MMOL/L (98-107); CHOLESTEROL LEVEL 120 MG/DL (<200); CHOLESTEROL RISK RATIO 3.52 (<5); CREATININE FOR GFR 0.91 MG/DL (0.70-1.30); GLOMERULAR FILTRATION RATE > 60.0 (>49); GLUCOSE, FASTING 91 MG/DL (74-106); LDL CHOLESTEROL 68.4 MG/DL (<100); POTASSIUM SERUM 4.6 MMOL/L (3.5-5.1); SODIUM LEVEL 141 MMOL/L (136-145); TOTAL PROTEIN 6.4 G/DL (5.7-8.2); TRIGLYCERIDES LEVEL 88 MG/DL (<150)
[2024-06-03 12:07] LABS: TOTAL 25(OH) VITAMIN D 77.6 NG/ML (20.0-100.0)
== END ==
LOC: M PLALAB 07:14
PROVIDERS: ATTEND Nurse Practitioner Family
DX: E11.9 Type 2 diabetes mellitus without complications (principal); I10 Essential (primary) hypertension; E78.2 Mixed hyperlipidemia; E55.9 Vitamin D deficiency, unspecified

== ENCOUNTER → 2024-06-06 | Outpatient (REF) | payer OTHER | LOC: M SFHCPLAZ 11:58 | PROVIDERS: ATTEND Nurse Practitioner Family | DX: J40 Bronchitis, not specified as acute or chronic (principal) ==

== ENCOUNTER → 2024-07-04 | Outpatient (CLI) | payer OTHER ==
[2024-07-04 11:40] LABS: BASO # 0.1 10^3/uL (0.0-0.2); BASO % 0.7 % (0.0-1.0); EOS # 0.2 10^3/uL (0.0-0.5); EOS % 2.3 % (0.0-3.0); HEMOGLOBIN 8.7 g/dl (13.5-17.5); LYMPH # 2.4 10^3/uL (1.5-5.0); LYMPH % 34.4 % (24.0-44.0); MEAN CORPUSCULAR HEMOGLOBIN 27.4 pg (27.0-33.0); MEAN CORPUSCULAR VOLUME 91.5 fl (80.0-96.0); MONO # 0.5 10^3/uL (0.0-0.8); MONO % 6.4 % (2.0-8.0); NEUTROPHILS % 55.9 % (36.0-66.0); PLATELET COUNT, AUTOMATED 259 10^3/uL (150-450); RED BLOOD COUNT 3.17 10^6/uL (4.30-6.10); WHITE BLOOD COUNT 7.1 10^3/uL (4.0-10.0)
[2024-07-04 12:06] LABS: ALBUMIN 3.3 G/DL (3.2-5.2); ALKALINE PHOSPHATASE 118 U/L (46-116); ALT/SGPT 25 U/L (7.0-40); AST/SGOT 15 U/L (<34); BILIRUBIN,TOTAL 0.4 MG/DL (0.3-1.2); BLOOD UREA NITROGEN 27 MG/DL (9-23); CALCIUM LEVEL 9.1 MG/DL (8.3-10.6); CARBON DIOXIDE LEVEL 29 MMOL/L (20-31); CHLORIDE LEVEL 107 MMOL/L (98-107); GLOMERULAR FILTRATION RATE > 60.0 (>49); GLUCOSE, FASTING 192 MG/DL (74-106); POTASSIUM SERUM 4.3 MMOL/L (3.5-5.1); SODIUM LEVEL 138 MMOL/L (136-145)
== END ==
LOC: M PLALAB 09:31
PROVIDERS: ATTEND Nurse Practitioner Family
DX: K85.90 Acute pancreatitis without necrosis or infection, unspecified (principal)

== ENCOUNTER → 2025-01-26 | Outpatient (CLI) | payer OTHER ==
[2025-01-26 11:30] LABS: BASO # 0.1 10^3/uL (0.0-0.2); BASO % 0.9 % (0.0-1.0); EOS # 0.1 10^3/uL (0.0-0.5); EOS % 1.7 % (0.0-3.0); HEMATOCRIT 32.8 % (42.0-52.0); HEMOGLOBIN 8.6 g/dl (13.5-17.5); LYMPH # 2.3 10^3/uL (1.5-5.0); MEAN CORPUSCULAR HEMOGLOBIN 17.8 pg (27.0-33.0); MEAN CORPUSCULAR HGB CONC 26.2 g/dl (32.0-36.5); MEAN CORPUSCULAR VOLUME 67.9 fl (80.0-96.0); MONO # 0.5 10^3/uL (0.0-0.8); MONO % 6.8 % (2.0-8.0); NEUTROPHILS # 4.7 10^3/uL (1.5-8.5); NEUTROPHILS % 60.5 % (36.0-66.0); PLATELET COUNT, AUTOMATED 345 10^3/uL (150-450); RED BLOOD COUNT 4.83 10^6/uL (4.30-6.10); WHITE BLOOD COUNT 7.8 10^3/uL (4.0-10.0)
[2025-01-26 11:44] LABS: HEMOGLOBIN A1c 9.4 % (4.0-6.0)
[2025-01-26 11:59] LABS: PSA SCREENING 1.11 NG/ML (< 4.00)
[2025-01-26 12:03] LABS: ALBUMIN 3.6 G/DL (3.2-5.2); ALKALINE PHOSPHATASE 69 U/L (40-129); ALT/SGPT 14 U/L (7.0-40); AST/SGOT 10 U/L (<34); BILIRUBIN,TOTAL 0.2 MG/DL (0.3-1.2); BLOOD UREA NITROGEN 22 MG/DL (9-23); CALCIUM LEVEL 9.2 MG/DL (8.3-10.6); CARBON DIOXIDE LEVEL 25 MMOL/L (20-31); CHLORIDE LEVEL 108 MMOL/L (98-107); CHOLESTEROL LEVEL 123 MG/DL (<200); CREATININE FOR GFR 0.91 MG/DL (0.70-1.30); GLOMERULAR FILTRATION RATE > 60.0 (>49); GLUCOSE, FASTING 182 MG/DL (74-106); HDL CHOLESTEROL 39.6 MG/DL (>40); IRON (FE) 17 UG/DL (65-175); LDL CHOLESTEROL 66.6 MG/DL (<100); NON-HDL-C 83.4 MG/DL; PERCENT SATURATION 4.4 % (19.7-50.0); POTASSIUM SERUM 5.1 MMOL/L (3.5-5.1); SODIUM LEVEL 139 MMOL/L (136-145); TOTAL IRON BINDING CAPACITY 384 UG/DL (250-425); TOTAL PROTEIN 7.1 G/DL (5.7-8.2); TRIGLYCERIDES LEVEL 84 MG/DL (<150)
== END ==
LOC: M PLALAB 07:06
PROVIDERS: ATTEND Nurse Practitioner Family
DX: E11.9 Type 2 diabetes mellitus without complications (principal); E78.2 Mixed hyperlipidemia; Z12.5 Encounter for screening for malignant neoplasm of prostate; N52.9 Male erectile dysfunction, unspecified; D64.9 Anemia, unspecified

== ENCOUNTER → 2025-02-12 | Outpatient (CLI) | payer OTHER | LOC: M PLAIMG 15:24 | PROVIDERS: ATTEND Nurse Practitioner Family | DX: M77.31 Calcaneal spur, right foot (principal); M79.671 Pain in right foot ==

== ENCOUNTER → 2025-03-23 | Outpatient (CLI) | payer OTHER ==
[~2025-03-23] MED LIST changes: -FLOM0.4C39 PO; +TAMS-18 PO
== END ==
LOC: M RAD 07:54
PROVIDERS: ATTEND Nurse Practitioner Family
DX: Z12.2 Encounter for screening for malignant neoplasm of respiratory organs (principal); F17.218 Nicotine dependence, cigarettes, with other nicotine-induced disorders

== ENCOUNTER 2025-06-03 10:17 | Outpatient (CLI) | payer MEDICARE, OTHER ==
[~2025-06-03] VITALS: Ht 185.4 cm; Wt 97.3 kg
[~2025-06-03 10:17] MED LIST changes: +ALBUTEROL SULFATE 2.5 MG/0.5 ML INH CONCENTRATE NEB SOLN INH PRN; +EPINEPHrine INJ 1 MG/ML 1ML AMP IM PRN; -PRAV80TA2 PO; +PRAV80TA75 PO; +diphenhydrAMINE 50 MG/ML VIAL IV PRN
[2025-06-03 10:30] VITALS: BP 133/69; O2SAT 97
[2025-06-03] MEDS: IRON SUCROSE 300 MG in NS 250 ML IV ONE (11:17)
[2025-06-03 13:00] VITALS: BP 132/61; O2SAT 98
== END 2025-06-03 13:10 | disposition home or self-care (01) ==
LOC: M INFU 10:17
PROVIDERS: ATTEND Nurse Practitioner Family
DX: D50.9 Iron deficiency anemia, unspecified (principal)
CPT/HCPCS: 96365; 96366; J1756

== ENCOUNTER 2025-07-10 09:14 | Outpatient (CLI) | payer MEDICARE ==
[~2025-07-10] VITALS: Ht 185.4 cm; Wt 100.0 kg
[2025-07-10 09:40] VITALS: BP 134/70; O2SAT 97
[2025-07-10] MEDS: IRON SUCROSE 300 MG in NS 250 ML IV ONE (10:16)
[2025-07-10 11:50] VITALS: BP 148/71; O2SAT 93
== END 2025-07-10 11:50 | disposition home or self-care (01) ==
LOC: M INFU 09:14
PROVIDERS: ATTEND Nurse Practitioner Family
DX: D50.9 Iron deficiency anemia, unspecified (principal)
CPT/HCPCS: 96365; J1756

== ENCOUNTER → 2025-09-30 | Outpatient (CLI) | payer MEDICARE, MEDICAID ==
[~2025-09-30] MED LIST changes: -ALBUTEROL SULFATE 2.5 MG/0.5 ML INH CONCENTRATE NEB SOLN INH PRN; -EPINEPHrine INJ 1 MG/ML 1ML AMP IM PRN; -EZET10TA21 PO; +EZET10TA57 PO; -diphenhydrAMINE 50 MG/ML VIAL IV PRN
[2025-09-30 10:28] LABS: CREATININE, URINE 158.6 MG/DL
[2025-09-30 10:29] LABS: MALB URINE SIEMENS 51.0 MG/L; MAU/CREAT RATIO 32.1 MCG/MG (0.0-30.0)
[2025-09-30 10:30] LABS: ALT/SGPT 19 U/L (7.0-40); AST/SGOT 15 U/L (<34); CALCIUM LEVEL 9.0 MG/DL (8.3-10.6); CARBON DIOXIDE LEVEL 30 MMOL/L (20-31); CHLORIDE LEVEL 106 MMOL/L (98-107); CHOLESTEROL LEVEL 123 MG/DL (<200); CHOLESTEROL RISK RATIO 3.48 (<5); CREATININE FOR GFR 0.80 MG/DL (0.70-1.30); GLOMERULAR FILTRATION RATE > 90.0 (>49); IRON (FE) 41 UG/DL (65-175); LDL CHOLESTEROL 72.1 MG/DL (<100); MAGNESIUM LEVEL 1.7 MG/DL (1.8-2.4); NON-HDL-C 87.7 MG/DL; PERCENT SATURATION 12.9 % (19.7-50.0); POTASSIUM SERUM 4.3 MMOL/L (3.5-5.1); SODIUM LEVEL 139 MMOL/L (136-145); TRIGLYCERIDES LEVEL 78 MG/DL (<150)
[2025-09-30 10:34] LABS: FREE T4 0.86 NG/DL (0.89-1.76)
[2025-09-30 11:31] LABS: ESTIMATED AVERAGE GLUCOSE 200.0 MG/DL (60-110)
== END ==
LOC: M PLALAB 08:04
PROVIDERS: ATTEND Nurse Practitioner Family
DX: D50.9 Iron deficiency anemia, unspecified (principal); R53.83 Other fatigue; I10 Essential (primary) hypertension; E11.8 Type 2 diabetes mellitus with unspecified complications